=== PATIENT | male | born 1950 | race Caucasian/White ===

== ENCOUNTER → 2020-08-17 09:31 | Outpatient (REF) | payer MEDICARE, SELFPAY ==
--- NOTE | 2020-08-17 09:30 | CA_ITS ---
Transthoracic Echocardiogram Patient (Last, First, Middle): Yomi Duncan, Gender: Male Date of : 1950 Age: 70 Procedure Date: 08/17/2020 Procedure Type: Transthoracic Echocardiogram Location: OP Height: 182.88 cm Weight: 83.92 kg BSA: 2.06 m2 Heart Rate: bpm BP: 120 / 58 mmHg Wheel Loader Operator: Referring MD: Mani Lowe MD Nail Making Machine Tender: Lars Obrien MD Symptoms: I48.0 PAF, I77.810 ASCENDING AORTA DILATION Study Quality: Fair ECG Rhythm: Sinus Conclusions: - 1. Normal LV systolic function with impaired relaxation filling pattern 2. Normal cardiac valvular Doppler 3. Normal RV systolic pressure 4. Mildly dilated aorta at the level of ascending aorta as well as sinus of Valsalva 5. No pericardial effusion Findings Left Ventricle Normal left ventricular size, thickness, and systolic function. The visually estimated ejection fraction is between 60-65%. Spectral Doppler is indicative of an impaired relaxation filling pattern. Right Ventricle Normal right ventricular cavity size and systolic function. Atria Both atria are normal in size. There is lipomatous hypertrophy of the interatrial septum. There is no evidence of interatrial shunt. Aortic Valve Normal aortic valve structure and function. There is no aortic valve stenosis. There is no aortic valve regurgitation. Mitral Valve Normal mitral valve structure and function. There is trace mitral valve regurgitation. There is no mitral valve stenosis. Pulmonic Valve The pulmonic valve is likely normal. There is trace pulmonic valve regurgitation. Tricuspid Valve Normal tricuspid valve structure. The right ventricular systolic pressure is normal. The right ventricular systolic pressure is 19 mmHg. There is no evidence of pulmonary hypertension. Great Vessels The pulmonary artery was not well visualized. There is mild dilatation of the sinuses of Valsalva measuring 4.10 cm and mild dilatation of the ascending aorta measuring 3.80 cm. Venous The inferior vena cava is normal in size and collapses greater than 50% with inspiration. Pericardium/Pleural There is no evidence of pericardial effusion. Measurements 2D Linear Measurements IVSd: 0.83 0.6-0.9/0.6-1.0 cm LVIDd: 5.33 3.9-5.3/4.2-5.9 cm LVIDd Index: 2.59 2.4-3.2/2.2-3.1 cm/m2 LVIDs: 3.58 2.0-3.6 cm LVPWd: 1.20 0.7-1.1 cm Ao Root: 3.40 2.1-3.5 cm LA Diam: 3.50 2.7-3.8/3.0-4.0 cm LAIDs Index: 1.70 1.5-2.3 cm/m2 LV Mass: 257.16 67-162/88-224 g LV Mass Index: 124.83 43-95/49-115 g/m2 LVOT Diam: 2.30 3.0+(-)1.3 cm 2D Systolic Function EF 4C: 73.70 >55% Mitral Valve MV Pk E: 0.68 MV PK A: 0.38 MV Decel Time: 187.00 E/A: 1.80 E'Lateral: 7.93 E'Medial: 5.71 E/E' Med: 11.90 E/E' Lat: 8.60 PHT: 55.00 MVA PHT: 4.00 Decel Gunn[place]: 3.64 Aortic Valve AoV Pk Camilo: 1.19 AoV Pk Grad: 6.00 LVOT LVOT Pk Camilo: 1.07 LVOT Mn Camilo: 0.68 LVOT VTI: 0.27 LVOT Pk Grad: 5.00 LVOT Mn Grad: 2.00 LVOT Diam: 2.30 LVOT Area: 4.15 Diastolic Function MV Pk E: 0.68 MV Pk A: 0.38 E/A: 1.80 E'Medial: 5.71 E/E' Med: 11.90 E' Laterial: 7.93 E/E' Lat: 8.60 Tricuspid Valve TR Pk Camilo: 1.97 TR Pk Grad: 16.00 RA Press: 3.00 RVSP: 19.00 Great Vessels Aorta Ao Root-2D: 3.40 2.0-3.7 cm Sinus of Valsalva: 4.10 2.0-3.5 cm Ao Asc: 3.80 2.1-3.4 cm Ao Arch: 3.80 Updated in Other Vendor System with Status of Final Lars Obrien MD electronically signed on 08/18/2020 12:46:36 PM with status of Final
== END ==
LOC: HO.CARD 09:31
PROVIDERS: Visit Provider Internal Medicine
DX: I48.0 Paroxysmal atrial fibrillation (principal)
CPT/HCPCS: 93306

== ENCOUNTER → 2020-08-29 10:33 | Outpatient (BNVA) | payer MEDICARE, SELFPAY | PROVIDERS: PCP Physician Assistant; Visit Provider Internal Medicine | DX: I48.0 Paroxysmal atrial fibrillation (principal); R00.1 Bradycardia, unspecified; I25.10 Atherosclerotic heart disease of native coronary artery without angina pectoris; Z79.01 Long term (current) use of anticoagulants; Z79.899 Other long term (current) drug therapy | CPT/HCPCS: 93005; 99212 ==

== ENCOUNTER → 2020-09-19 13:51 | Outpatient (REF) | payer MEDICARE, SELFPAY ==
--- NOTE | 2020-09-19 13:55 | ECG_ITS ---
Hook-up date: 2020-09-19 14:05:00 Duration: 25:23:00 Test Indications: PAF Medications: 86648 QRS complexes 11 Ventricular ectopics which represent <1 % of total QRS comp. 15 Supraventricular ectopics which represent <1 % of total QRS comp. * Paced QRS complexs which represent % of total QRS comp. VENTRICULAR ECTOPY 11 Isolated 0 Bigeminal Cycles 0 Couplets 0 Runs 0 Beats in Runs * Beats LONGEST at * BPM at :: -- * Beats FASTEST at * BPM at :: -- SUPRAVENTRICULAR ECTOPY 15 Isolated 0 Couplets 0 Runs 0 Beats in Runs * Beats LONGEST at * BPM at :: -- * Beats FASTEST at * BPM at :: -- HEART RATES 36 MIN at 06:33:43 2020-09-20 50 AVG 87 MAX at 12:24:17 2020-09-20 LONGEST RR 1.8000 secs at 06:26:17 2020-09-20 S-T LEVELS Channel 1 - 128 mm at 14:05:00 2020-09-19 - 128 mm at 14:05:00 2020-09-19 Channel 2 - 128 mm at 14:05:00 2020-09-19 - 128 mm at 14:05:00 2020-09-19 Channel 3 - 128 mm at 03:32:41 -- - 128 mm at 03:32:41 Basic rhythm Normal sinus rhythm No long pauses Frequent Sinus bradycardia , average HR of 50 bpm, with 86% of time HR < 60 bpm Rare ectopics No sustained Atrial fibrillation Patient did not report any symptoms in the diary Referred By: Mani Lowe Overread By: JAVED RUSSELL MD
== END ==
LOC: HO.CARD 13:51
PROVIDERS: Visit Provider Internal Medicine
DX: I48.0 Paroxysmal atrial fibrillation (principal); I77.810 Thoracic aortic ectasia
CPT/HCPCS: 93225; 93226

== ENCOUNTER → 2020-10-08 10:02 | Outpatient (BNVA) | payer MEDICARE, SELFPAY | PROVIDERS: PCP Physician Assistant; Visit Provider Internal Medicine | DX: Z13.89 Encounter for screening for other disorder (principal) | CPT/HCPCS: Q3014 ==

== ENCOUNTER 2021-02-21 07:09 | Outpatient (REF) | payer MEDICARE, SELFPAY ==
[2021-02-21 11:30] LABS: MANUAL DIFF FLAG NO
[2021-02-21 11:47] LABS: Basophils Absolute Auto 0.1 X10*3/uL (0.0-0.2); Basophils Percent Auto 1.1 % (0-2); Eosinophils Absolute Auto 0.2 X10*3/uL (0.0-0.4); Eosinophils Percent Auto 3.9 % (0-4); Hemoglobin 14.9 g/dl (14.0-18.0); Imm Gran Abs Auto 0.01 X10*3/uL (0.00-0.03); Imm Gran Pct Auto 0.2 % (0.0-0.4); Lymphocytes Absolute Auto 1.4 X10*3/uL (1.2-4.9); Lymphocytes Percent Auto 24.9 % (20-40); Mean Corpuscular HGB Conc 33.9 g/dl (31.0-36.0); Mean Corpuscular Hemoglobin 32.3 pg (27.0-33.0); Mean Corpuscular Volume 95.2 fL (80-98); Mean Platelet Volume 10.5 fL (9.4-12.4); Monocytes Absolute Auto 0.5 X10*3/uL (0.1-1.2); Monocytes Percent Auto 8.2 % (2-11); Neutrophils Absolute Auto 3.5 X10*3/uL (2.0-8.3); Neutrophils Percent Auto 61.7 % (45-73); Platelet Count 267 X10*3/uL (160-400); Red Blood Count 4.62 X10*6/uL (4.60-5.80); White Blood Count 5.6 X10*3/uL (4.8-10.8)
[2021-02-21 12:02] LABS: Alanine Aminotransferase 29 U/L (0-40); Albumin Level 4.4 g/dL (3.5-5.0); Alkaline Phosphatase 73 U/L (39-117); Anion Gap 13 (12-20); Aspartate Amino Transferase 31 U/L (5-37); Bilirubin Total 1.1 mg/dL (0.0-1.0); Blood Urea Nitrogen 14 mg/dL (9-16); Calcium 9.5 mg/dL (8.4-10.2); Carbon Dioxide 27 mmol/L (22-29); Chloride 107 mmol/L (96-108); Cholesterol 163 mg/dL; Estimated Glomerular Filt Rate > 60; Glucose Fasting 86 mg/dL (60-99); HDL Cholesterol 55 mg/dL; LDL Cholesterol Calculated 83 mg/dl; Potassium 4.2 mmol/L (3.3-5.1); Sodium 143 mmol/L (135-145); Total Protein 7.1 g/dL (6.5-8.0); Triglycerides 125 mg/dL
[2021-02-21 12:14] LABS: Prostate Specific Antigen Scr 1.16 ng/mL (<0.05-4.0); TSH reflex Free T4 2.43 uIU/mL (0.32-4.0)
== END 2021-02-21 07:10 | disposition home or self-care (01) ==
LOC: HO.HMGCLDS 07:09
PROVIDERS: PCP Physician Assistant; Visit Provider Physician Assistant
DX: Z12.5 Encounter for screening for malignant neoplasm of prostate (principal); I25.10 Atherosclerotic heart disease of native coronary artery without angina pectoris; K76.0 Fatty (change of) liver, not elsewhere classified; I48.0 Paroxysmal atrial fibrillation
CPT/HCPCS: 36415; 80053; 80061; 84153; 84443; 85025

== ENCOUNTER 2021-06-17 13:19 | Outpatient (REF) | payer MEDICARE, SELFPAY ==
[2021-06-17 14:27] LABS: Hematocrit 43.3 % (42-52); Hemoglobin 14.9 g/dl (14.0-18.0); Mean Corpuscular HGB Conc 34.4 g/dl (31.0-36.0); Mean Corpuscular Volume 93.1 fL (80-98); Mean Platelet Volume 10.2 fL (9.4-12.4); Platelet Count 240 X10*3/uL (160-400); Red Blood Count 4.65 X10*6/uL (4.60-5.80); Red Cell Distribution Width 12.4 % (11.0-16.0); White Blood Count 8.1 X10*3/uL (4.8-10.8)
[2021-06-17 14:48] LABS: Alanine Aminotransferase 27 U/L (0-40); Alkaline Phosphatase 89 U/L (39-117); Anion Gap 15 (12-20); Aspartate Amino Transferase 24 U/L (5-37); Bilirubin Direct 0.7 mg/dL (0.0-0.5); Bilirubin Total 1.8 mg/dL (0.0-1.0); Blood Urea Nitrogen 12 mg/dL (9-16); Calcium 9.3 mg/dL (8.4-10.2); Carbon Dioxide 25 mmol/L (22-29); Chloride 102 mmol/L (96-108); Estimated Glomerular Filt Rate > 60; Glucose Random 144 mg/dL (60-115); Potassium 4.3 mmol/L (3.3-5.1); Sodium 138 mmol/L (135-145); Total Protein 6.8 g/dL (6.5-8.0)
[2021-06-18 09:52] LABS: Lyme Abs Screen <0.90 index
[2021-06-22 17:22] LABS: HSV 1 IgM IFA Negative (Negative); HSV 2 IgM IFA Negative (Negative)
== END 2021-06-17 13:20 | disposition home or self-care (01) ==
LOC: HO.HMGCLDS 13:19
PROVIDERS: PCP Physician Assistant; Visit Provider Physician Assistant
DX: Z01.84 Encounter for antibody response examination (principal); I10 Essential (primary) hypertension; L73.9 Follicular disorder, unspecified
CPT/HCPCS: 36415; 80048; 80076; 85027; 86617; 86618; 86695; 86696

== ENCOUNTER 2021-06-19 14:41 | Outpatient (REF) | payer MEDICARE, SELFPAY | END 2021-06-19 14:42 | disposition home or self-care (01) | LOC: HO.HMGCLDS 14:41 | PROVIDERS: PCP Physician Assistant; Visit Provider Physician Assistant | DX: B37.9 Candidiasis, unspecified (principal) | CPT/HCPCS: 87040 ==

== ENCOUNTER 2021-06-20 08:03 | Outpatient (REF) | payer MEDICARE, SELFPAY ==
[2021-06-20 11:32] LABS: Hematocrit 41.1 % (42-52); Mean Corpuscular HGB Conc 34.1 g/dl (31.0-36.0); Mean Corpuscular Hemoglobin 32.3 pg (27.0-33.0); Mean Corpuscular Volume 94.9 fL (80-98); Mean Platelet Volume 10.2 fL (9.4-12.4); Platelet Count 346 X10*3/uL (160-400); Red Blood Count 4.33 X10*6/uL (4.60-5.80); Red Cell Distribution Width 12.1 % (11.0-16.0); White Blood Count 11.9 X10*3/uL (4.8-10.8)
[2021-06-20 11:54] LABS: Alanine Aminotransferase 36 U/L (0-40); Alkaline Phosphatase 77 U/L (39-117); Anion Gap 12 (12-20); Aspartate Amino Transferase 22 U/L (5-37); Bilirubin Total 0.8 mg/dL (0.0-1.0); Blood Urea Nitrogen 15 mg/dL (9-16); Calcium 9.6 mg/dL (8.4-10.2); Carbon Dioxide 27 mmol/L (22-29); Chloride 106 mmol/L (96-108); Cholesterol 126 mg/dL; Estimated Glomerular Filt Rate > 60; Glucose Fasting 89 mg/dL (60-99); HDL Cholesterol 42 mg/dL; LDL Cholesterol Calculated 62 mg/dl; Sodium 141 mmol/L (135-145); Total Protein 6.6 g/dL (6.5-8.0); Triglycerides 112 mg/dL
[2021-06-20 12:05] LABS: TSH reflex Free T4 3.41 uIU/mL (0.32-4.0)
== END 2021-06-20 08:04 | disposition home or self-care (01) ==
LOC: HO.HMGCLDS 08:03
PROVIDERS: PCP Physician Assistant; Visit Provider Physician Assistant
DX: I25.10 Atherosclerotic heart disease of native coronary artery without angina pectoris (principal); I48.0 Paroxysmal atrial fibrillation; I10 Essential (primary) hypertension
CPT/HCPCS: 36415; 80053; 80061; 84443; 85027

== ENCOUNTER 2021-07-02 08:24 | Outpatient (REF) | payer MEDICARE, SELFPAY ==
[2021-07-02 11:39] LABS: Hematocrit 39.3 % (42-52); Hemoglobin 13.3 g/dl (14.0-18.0); Mean Corpuscular HGB Conc 33.8 g/dl (31.0-36.0); Mean Corpuscular Volume 94.5 fL (80-98); Mean Platelet Volume 9.4 fL (9.4-12.4); Platelet Count 428 X10*3/uL (160-400); Red Blood Count 4.16 X10*6/uL (4.60-5.80); White Blood Count 8.3 X10*3/uL (4.8-10.8)
[2021-07-02 11:57] LABS: Estimated Average Glucose 103 mg/dL; Hemoglobin A1c % 5.2 %
[2021-07-02 12:00] LABS: Alanine Aminotransferase 25 U/L (0-40); Albumin Level 3.8 g/dL (3.5-5.0); Alkaline Phosphatase 74 U/L (39-117); Anion Gap 13 (12-20); Aspartate Amino Transferase 27 U/L (5-37); Bilirubin Total 0.5 mg/dL (0.0-1.0); Blood Urea Nitrogen 11 mg/dL (9-16); C Reactive Protein 0.73 mg/dL (< or = 0.50); Calcium 9.3 mg/dL (8.4-10.2); Carbon Dioxide 25 mmol/L (22-29); Chloride 110 mmol/L (96-108); Cholesterol 144 mg/dL; Estimated Glomerular Filt Rate > 60; Glucose Fasting 95 mg/dL (60-99); HDL Cholesterol 44 mg/dL; LDL Cholesterol Calculated 84 mg/dl; Potassium 4.9 mmol/L (3.3-5.1); Rheumatoid Factor < 15.0 IU/mL (<15.0); Sodium 143 mmol/L (135-145); Total Protein 6.4 g/dL (6.5-8.0); Triglycerides 80 mg/dL
[2021-07-02 12:22] LABS: Prostate Specific Antigen Scr 1.79 ng/mL (<0.05-4.0); TSH reflex Free T4 1.63 uIU/mL (0.32-4.0)
[2021-07-02 12:43] LABS: Erythrocyte Sedimentation Rate 23 MM/HR (0-15)
[2021-07-06 12:11] LABS: Anti Nuclear Antibody Screen NEGATIVE (NEGATIVE)
== END 2021-07-02 08:25 | disposition home or self-care (01) ==
LOC: HO.HMGCLDS 08:24
PROVIDERS: PCP Physician Assistant; Visit Provider Physician Assistant
DX: M13.0 Polyarthritis, unspecified (principal); I10 Essential (primary) hypertension; D72.829 Elevated white blood cell count, unspecified; I48.0 Paroxysmal atrial fibrillation; I25.10 Atherosclerotic heart disease of native coronary artery without angina pectoris; Z12.5 Encounter for screening for malignant neoplasm of prostate
CPT/HCPCS: 36415; 80053; 80061; 83036; 84153; 84443; 85027; 85652; 86038; 86039; 86140; 86431

== ENCOUNTER → 2021-08-12 08:29 | Outpatient (REF) | payer MEDICARE, SELFPAY ==
--- NOTE | 2021-08-12 08:32 | CA_ITS ---
Transthoracic Echocardiogram Patient (Last, First, Middle): Yomi Duncan, Gender: Male Date of : 1950 Age: 71 Procedure Date: 08/12/2021 Procedure Type: Transthoracic Echocardiogram Location: OP Height: 182.88 cm Weight: 88.45 kg BSA: 2.11 m2 Heart Rate: bpm BP: 118 / 60 mmHg Baggage Handler: Referring MD: Dexter Patricia PA-C Symptoms: I48.0 - Paroxysmal atrial fibrillation Study Quality: Fair ECG Rhythm: Sinus Conclusions: - The left ventricular systolic function is normal. The calculated ejection fraction is 58% by biplane method. - No obvious valvular pathology seen on this study. - There is mild aortic annular dilatation measuring 4.00 cm. Findings Left Ventricle Normal left ventricular cavity size. There is mildly increased left ventricular wall thickness. The left ventricular systolic function is normal. The calculated ejection fraction is 58% by biplane method. There is no evidence of regional wall motion abnormalities. Diastolic function is normal for age. Right Ventricle Normal right ventricular cavity size and systolic function. Atria Both atria are normal in size. Aortic Valve The aortic valve was not well visualized. There is no aortic valve stenosis. There is no aortic valve regurgitation. Mitral Valve The mitral valve appears normal. There is trace mitral valve regurgitation. There is no mitral valve stenosis. Pulmonic Valve The pulmonic valve was not well visualized. Tricuspid Valve Normal tricuspid valve structure. There is trace tricuspid valve regurgitation. The pulmonary artery systolic pressure is normal. Great Vessels There is mild aortic annular dilatation measuring 4.00 cm. Top normal ascending aortic size at 3.9cm. Venous The inferior vena cava is normal in size and collapses greater than 50% with inspiration. Pericardium/Pleural There is no evidence of pericardial effusion. Prior Study Comparison No significant change compared to prior study dated: 08/17/2020. Recommendations, Care & Conclusions No obvious valvular pathology seen on this study. Measurements 2D Linear Measurements IVSd: 1.43 0.6-0.9/0.6-1.0 cm LVIDd: 4.27 3.9-5.3/4.2-5.9 cm LVIDd Index: 2.02 2.4-3.2/2.2-3.1 cm/m2 LVIDs: 2.67 2.0-3.6 cm LVPWd: 1.41 0.7-1.1 cm Ao Root: 4.00 2.1-3.5 cm LA Diam: 3.40 2.7-3.8/3.0-4.0 cm LAIDs Index: 1.61 1.5-2.3 cm/m2 LV Mass: 292.83 67-162/88-224 g LV Mass Index: 138.78 43-95/49-115 g/m2 LVOT Diam: 2.30 3.0+(-)1.3 cm 2D Systolic Function EF 4C: 58.90 >55% EF 2C: 56.00 >55% EF BiP: 58.30 >55% Mitral Valve MV Pk E: 0.69 MV PK A: 0.50 MV Decel Time: 248.00 E/A: 1.40 E'Lateral: 10.10 E'Medial: 5.55 E/E' Med: 12.50 E/E' Lat: 6.90 PHT: 73.00 MVA PHT: 3.01 Decel Giles: 2.80 Aortic Valve AoV Pk Camilo: 1.38 AoV Mn Camilo: 0.95 AoV VTI: 0.34 AoV Pk Grad: 8.00 Aov Mn Grad: 4.00 HOLDEN Cont.VTI: 3.29 LVOT LVOT Pk Camilo: 1.12 LVOT Mn Camilo: 0.72 LVOT VTI: 0.27 LVOT Pk Grad: 5.00 LVOT Mn Grad: 3.00 LVOT Diam: 2.30 LVOT Area: 4.15 Diastolic Function MV Pk E: 0.69 MV Pk A: 0.50 E/A: 1.40 E'Medial: 5.55 E/E' Med: 12.50 E' Laterial: 10.10 E/E' Lat: 6.90 Right Ventricle TAPSE (mm): 25.00 Tricuspid Valve TR Pk Camilo: 1.58 TR Pk Grad: 10.00 Great Vessels Aorta Ao Root-2D: 4.00 2.0-3.7 cm Ao Annulus: 4.00 1.4-2.6 cm Ao Asc: 3.90 2.1-3.4 cm Pulmonary Valve PV Pk Camilo: 0.99 Peak PV Grad: 4.00 Updated in Other Vendor System with Status of Final Mani Lowe MD electronically signed on 08/12/2021 12:26:04 PM with status of Final
== END ==
LOC: HO.CARD 08:29
PROVIDERS: Visit Provider Physician Assistant
DX: I48.0 Paroxysmal atrial fibrillation (principal); B37.9 Candidiasis, unspecified
CPT/HCPCS: 93306

== ENCOUNTER 2021-08-30 08:26 | Outpatient (REF) | payer MEDICARE, SELFPAY ==
[2021-08-30 11:28] LABS: Hematocrit 42.6 % (42.0-52.0); Hemoglobin 14.5 g/dl (14.0-18.0); Mean Corpuscular Hemoglobin 31.7 pg (27.0-33.0); Mean Corpuscular Volume 93.2 fL (80.0-98.0); Mean Platelet Volume 10.5 fL (9.4-12.4); Platelet Count 281 X10*3/uL (160-400); Red Blood Count 4.57 X10*6/uL (4.60-5.80); White Blood Count 5.2 X10*3/uL (4.8-10.8)
== END 2021-08-30 08:27 | disposition home or self-care (01) ==
LOC: HO.HMGCLDS 08:26
PROVIDERS: PCP Physician Assistant; Visit Provider Physician Assistant
DX: Z13.89 Encounter for screening for other disorder (principal)
CPT/HCPCS: 36415; 85027

== ENCOUNTER → 2021-10-22 09:38 | Outpatient (BNVA) | payer MEDICARE, SELFPAY | PROVIDERS: PCP Physician Assistant; Referring Provider Physician Assistant; Visit Provider Internal Medicine | DX: I48.0 Paroxysmal atrial fibrillation (principal); I25.10 Atherosclerotic heart disease of native coronary artery without angina pectoris; I77.810 Thoracic aortic ectasia; R00.1 Bradycardia, unspecified | CPT/HCPCS: 93005; 99212 ==

== ENCOUNTER 2022-02-28 09:04 | Outpatient (REF) | payer MEDICARE, SELFPAY ==
[2022-02-28 11:24] LABS: Hemoglobin 15.2 g/dl (14.0-18.0); Mean Corpuscular HGB Conc 34.5 g/dl (31.0-36.0); Mean Corpuscular Hemoglobin 32.5 pg (27.0-33.0); Mean Corpuscular Volume 94.2 fL (80.0-98.0); Mean Platelet Volume 10.5 fL (9.4-12.4); Platelet Count 282 X10*3/uL (160-400); Red Blood Count 4.67 X10*6/uL (4.60-5.80); Red Cell Distribution Width 12.2 % (11.0-16.0); White Blood Count 5.8 X10*3/uL (4.8-10.8)
[2022-02-28 11:49] LABS: Alanine Aminotransferase 44 U/L (0-40); Albumin Level 4.3 g/dL (3.5-5.0); Alkaline Phosphatase 68 U/L (39-117); Anion Gap 15 (12-20); Aspartate Amino Transferase 43 U/L (5-37); Bilirubin Total 1.1 mg/dL (0.0-1.0); Blood Urea Nitrogen 12 mg/dL (9-16); Calcium 9.4 mg/dL (8.4-10.2); Carbon Dioxide 24 mmol/L (22-29); Chloride 107 mmol/L (96-108); Cholesterol 159 mg/dL; Estimated Glomerular Filt Rate > 60; Glucose Fasting 91 mg/dL (60-99); HDL Cholesterol 55 mg/dL; LDL Cholesterol Calculated 86 mg/dl; Potassium 4.5 mmol/L (3.3-5.1); Sodium 141 mmol/L (135-145); Total Protein 7.2 g/dL (6.5-8.0); Triglycerides 92 mg/dL
[2022-02-28 11:50] LABS: Prostate Specific Antigen Scr 1.64 ng/mL (<0.05-4.0); TSH reflex Free T4 2.56 uIU/mL (0.32-4.0)
[2022-02-28 12:01] LABS: Creatinine Urine 228.09 mg/dL; Microalbum/Creatinine Ratio Ur 5.6 ug/mg cr
== END 2022-02-28 09:05 | disposition home or self-care (01) ==
LOC: HO.HMGCLDS 09:04
PROVIDERS: PCP Physician Assistant; Visit Provider Physician Assistant
DX: I10 Essential (primary) hypertension (principal); E78.2 Mixed hyperlipidemia; Z12.5 Encounter for screening for malignant neoplasm of prostate
CPT/HCPCS: 36415; 80053; 80061; 82043; 84153; 84443; 85027

== ENCOUNTER → 2022-09-17 09:24 | Outpatient (BNVA) | payer MEDICARE, SELFPAY | PROVIDERS: PCP Physician Assistant; Visit Provider Surgery | DX: R10.32 Left lower quadrant pain (principal); R00.1 Bradycardia, unspecified; I48.0 Paroxysmal atrial fibrillation; K76.0 Fatty (change of) liver, not elsewhere classified; I10 Essential (primary) hypertension; E78.2 Mixed hyperlipidemia; R13.12 Dysphagia, oropharyngeal phase; Z79.01 Long term (current) use of anticoagulants | CPT/HCPCS: 99202 ==

== ENCOUNTER 2022-09-25 09:53 | Outpatient (REF) | payer MEDICARE, SELFPAY ==
--- NOTE | ~2022-09-25 | CT_ITS ---
EXAMINATION: CT PELVIS WITHOUT CONTRAST CLINICAL INFORMATION: Left lower quadrant pain COMPARISON: None TECHNIQUE: Helical scanning was performed with submillimeter collimation through the pelvis. Sagittal and coronal multiplanar 2-D reconstructions were obtained. This CT examination was performed using dose optimization techniques as appropriate, variously including the following: *Automated exposure control *Adjustment of mA and/or kV according to patient size (this includes techniques or standardized protocols for targeted exams where dose is matched to indication/reason for exam; i.e. extremities or head) *Use of iterative reconstruction technique DLP: 988 mGy-cm FINDINGS: PELVIS: There is scattered colonic diverticuli, stool without distention. Visualized small bowel loops are normal caliber. No abnormal size pelvic mass or lymph nodes seen. The prostate gland is mildly enlarged. There are bilateral prominent inguinal canals containing partial loop of descending colon in left inguinal canal and peritoneal fat within the right inguinal canal is noted. OSSEOUS STRUCTURES: No aggressive lytic or sclerotic process seen. There is mild spondylosis lower lumbar spine with bilateral L4-L5 and L5-S1 facet joint arthropathy. CT/CT pelvis wo IV con IMPRESSION: Left inguinal hernia with a loop of descending colon within but no obstructive symptoms or inflammatory process seen. Colonic diverticulosis without diverticulitis.
== END 2022-09-25 09:54 | disposition home or self-care (01) ==
LOC: HO.CT 09:53
PROVIDERS: PCP Physician Assistant; Visit Provider Surgery
DX: R10.32 Left lower quadrant pain (principal)
CPT/HCPCS: 72192

== ENCOUNTER → 2022-10-03 11:22 | Outpatient (BNVA) | payer MEDICARE, SELFPAY | PROVIDERS: PCP Physician Assistant; Visit Provider Surgery | DX: K40.90 Unilateral inguinal hernia, without obstruction or gangrene, not specified as recurrent (principal); R13.12 Dysphagia, oropharyngeal phase; R00.1 Bradycardia, unspecified; E78.2 Mixed hyperlipidemia; I10 Essential (primary) hypertension; I48.0 Paroxysmal atrial fibrillation; Z79.01 Long term (current) use of anticoagulants | CPT/HCPCS: 99212 ==

== ENCOUNTER → 2022-10-28 09:22 | Outpatient (BNVA) | payer MEDICARE, SELFPAY | PROVIDERS: PCP Physician Assistant; Referring Provider Physician Assistant; Visit Provider Internal Medicine | DX: Z01.810 Encounter for preprocedural cardiovascular examination (principal); I48.0 Paroxysmal atrial fibrillation; R00.1 Bradycardia, unspecified; I25.10 Atherosclerotic heart disease of native coronary artery without angina pectoris; I77.810 Thoracic aortic ectasia; Z79.01 Long term (current) use of anticoagulants; Z79.899 Other long term (current) drug therapy | CPT/HCPCS: 93005; 99212 ==

== ENCOUNTER 2022-10-29 08:53 | Outpatient (REF) | payer MEDICARE, SELFPAY ==
--- NOTE | ~2022-10-29 | FL_ITS ---
EXAMINATION: FL BARIUM SWALLOW CLINICAL INFORMATION: R13.12 - Dysphagia, oropharyngeal phase. Patient notes prior history spontaneous pharyngeal spasms in past with some intermittent pain. COMPARISON: Chest radiographs 11/03/2018 TECHNIQUE: Barium swallow examination is performed using fluoroscopic evaluation in addition to multiple fluoroscopic spot views, including cine images during swallowing. The patient is imaged both upright and prone and using both thick and thin sulfate along with effervescent granules. Barium pill challenge also performed. Fluoroscopy time: 1.5 minutes DAP: 16.626 Gycm2 Images: 32 FINDINGS: Swallowing function is normal and there is no aspiration. The cervical esophagus has no web or diverticulum or stricture. The cervical thoracic junction appears normal. There are degenerative disc changes cervical spine at C5-C6 with disc narrowing and anterior spurring. No delayed transit through the area of osteophyte. There is prompt passage of swallowed barium pill from mouth to stomach. The thoracic esophagus shows some decreased primary peristaltic activity but no tertiary contractions. No obstruction, stricture, or ulceration. There is borderline small sliding hiatal hernia/herniation of esophagogastric junction during the prone Valsalva maneuver. No gastroesophageal reflux demonstrated. Brief fluoroscopy of the upper abdomen shows no gastric outlet obstruction. FL/FL barium swallow IMPRESSION: -Mild decreased primary esophageal peristalsis. No tertiary contractions. -No obstruction, stricture, or ulceration. -Borderline herniation esophagogastric junction during prone Valsalva maneuver. No gastroesophageal reflux. -Degenerative changes mid cervical spine with bridging anterior osteophyte.
== END 2022-10-29 08:54 | disposition home or self-care (01) ==
LOC: HO.XRAY 08:53
PROVIDERS: PCP Physician Assistant; Visit Provider Physician Assistant
DX: Z01.810 Encounter for preprocedural cardiovascular examination (principal); R13.12 Dysphagia, oropharyngeal phase
CPT/HCPCS: 74220; 93306

== ENCOUNTER → 2022-10-29 10:17 | Outpatient (REF) | payer MEDICARE, SELFPAY ==
--- NOTE | 2022-10-29 10:20 | CA_ITS ---
Transthoracic Echocardiogram Patient (Last, First, Middle): Yomi Duncan, Gender: Male Date of : 1950 Age: 72 Procedure Date: 10/29/2022 Procedure Type: Transthoracic Echocardiogram Location: OP Height: 185.42 cm Weight: 90.72 kg BSA: 2.15 m2 Heart Rate: 45 bpm BP: 135 / 75 mmHg Quality Assistant: ALVAREZ Hernandez MD: Mani Lowe MD Electronic Warfare Officer: Lars Obrien MD Symptoms: Z01.810 - Encounter for preprocedural cardiovascular examination Study Quality: Fair ECG Rhythm: Bradycardia Conclusions: - 1. Normal LV systolic function with mild LVH with LVEF of 60 65% with impaired relaxation filling pattern 2. Cardiac valvular Doppler within normal limits 3. Mildly dilated ascending aorta at 4.2 cm 4. No gross pericardial effusion Findings Left Ventricle Normal left ventricular size and systolic function. There is mildly increased left ventricular wall thickness. The visually estimated ejection fraction is between 60-65%. Regional wall motion abnormalities can not be excluded due to suboptimal endocardial definition. Spectral Doppler is indicative of an impaired relaxation filling pattern. E/E prime ratio is between 8 and 15 consistent with indeterminate filling pressures. There is moderate septal asymmetric hypertrophy. Right Ventricle Normal right ventricular cavity size and systolic function. Atria The left atrium is normal in size. There is lipomatous hypertrophy of the interatrial septum. There is no evidence of interatrial shunt. The right atrium was not well visualized. Aortic Valve The aortic valve was not well visualized. There is no aortic valve stenosis. There is no aortic valve regurgitation. Mitral Valve There is mild anterior and posterior mitral leaflet thickening. There is trace mitral valve regurgitation. There is no mitral valve stenosis. Pulmonic Valve The pulmonic valve was not well visualized. Tricuspid Valve The tricuspid valve was not well visualized. Tricuspid regurgitation envelope is inadequate for calculation of right ventricular systolic pressure. Great Vessels The pulmonary artery was not well visualized. There is mild dilatation of the ascending aorta measuring 4.20 cm. Venous The inferior vena cava was not well visualized. Pericardium/Pleural There is no evidence of pericardial effusion. Prior Study Comparison No significant change compared to prior study dated: 08/12/2021. Measurements 2D Linear Measurements IVSd: 1.62 0.6-0.9/0.6-1.0 cm LVIDd: 4.40 3.9-5.3/4.2-5.9 cm LVIDd Index: 2.05 2.4-3.2/2.2-3.1 cm/m2 LVIDs: 2.97 2.0-3.6 cm LVPWd: 1.36 0.7-1.1 cm LA Diam: 3.10 2.7-3.8/3.0-4.0 cm LAIDs Index: 1.44 1.5-2.3 cm/m2 LV Mass: 329.43 67-162/88-224 g LV Mass Index: 153.23 43-95/49-115 g/m2 LVOT Diam: 2.10 3.0+(-)1.3 cm 2D Systolic Function EF 4C: 58.90 >55% EF 2C: 73.00 >55% Mitral Valve MV Pk E: 0.51 MV PK A: 0.61 MV Decel Time: 220.00 E/A: 0.80 E'Lateral: 7.40 E'Medial: 4.03 E/E' Med: 12.70 E/E' Lat: 6.90 PHT: 64.00 MVA PHT: 3.44 Decel Leslie: 2.32 Aortic Valve AoV Pk Camilo: 1.08 AoV Mn Camilo: 0.70 AoV VTI: 0.24 AoV Pk Grad: 5.00 Aov Mn Grad: 2.00 HOLDEN Cont.VTI: 2.88 LVOT LVOT Pk Camilo: 1.00 LVOT Mn Camilo: 0.60 LVOT VTI: 0.20 LVOT Pk Grad: 4.00 LVOT Mn Grad: 2.00 LVOT Diam: 2.10 LVOT Area: 3.46 Diastolic Function MV Pk E: 0.51 MV Pk A: 0.61 E/A: 0.80 E'Medial: 4.03 E/E' Med: 12.70 E' Laterial: 7.40 E/E' Lat: 6.90 Right Ventricle TAPSE (mm): 22.90 TVS' Camilo: 8.49 Tricuspid Valve RA Press: 3.00 Great Vessels Aorta Sinus of Valsalva: 4.20 2.0-3.5 cm Ao Asc: 4.20 2.1-3.4 cm Pulmonary Valve PV Pk Camilo: 0.84 Peak PV Grad: 3.00 Updated in Other Vendor System with Status of Final Lars Obrien MD electronically signed on 10/29/2022 3:05:49 PM with status of Final
== END ==
LOC: HO.CARD 10:17
PROVIDERS: Visit Provider Internal Medicine
DX: Z13.89 Encounter for screening for other disorder (principal)
CPT/HCPCS: 93306

== ENCOUNTER → 2022-11-04 07:54 | Outpatient (REF) | payer MEDICARE, SELFPAY ==
--- NOTE | ~2022-11-04 | NM_ITS ---
Lexiscan Myocardial perfusion study Indication: Preoperative cardiac evaluation Technique: The patient was brought in for a Lexiscan perfusion study on 11/04/2022 and was injected 0.4 mg of Lexiscan intravenously. Within a minute of this injection 30 mCi of sestamibi was given intravenously. Images were obtained using the SPECT gamma camera interlaced with the gating device. Images were obtained in supine position. Resting perfusion study was performed on 11/05/2022. Patient was administered 30 mCi of sestamibi intravenously at rest. Images were then obtained in supine position. Images were processed with the software and compared side to side in short axis, horizontal long axis and vertical long axis views. Total DLP 87mGy-cm. Findings: Raw acquisition reviewed. The stress perfusion study showed diminished tracer uptake along the inferior wall, more prominent towards the base and apex. There is also adjacent subdiaphragmatic tracer uptake. There is some improvement with CT attenuation correction and hence could be related to diaphragmatic attenuation artifact. The gated study shows normal LV systolic function with calculated LVEF of 58%. LV cavity is normal in size. The gated study shows normal wall thickening and contraction of segments. Resting study shows diminished tracer uptake along the inferior wall, slightly worse compared to stress acquisition. Gating at rest reveals normal wall motion with ejection fraction at 57%. The findings are consistent with fixed inferior defect. No clear reversible defects. NM/NM chris perf SPECT rest & str Impression: 1. Myocardial perfusion imaging study shows no clear evidence of any ischemia or infarction. Likely normal perfusion. 2. Gated LVEF is 58% during stress and 57% during rest. 3. Transient ischemic dilatation not present. EKG component of the test reported separately.
--- NOTE | 2022-11-04 07:58 | CA_ITS ---
Acquisition Time: 2022-11-04 08:13:44 Total Exercise Time: 00:03:49 Test Indications: Dyspnea Medications: ELIQUIS METOPROLOL LOVASTATIN Protocol: SHADIA Max HR: 111 BPM 75% of Pred: 148 BPM Max BP: 148/072 mmHG Max Work Load: 5.5 METS Exercise stress test with exercise 3 min 49 sec of Shadia protocol, achieving 75% MPHR briefly, with report of shortness of breath and tightness around neck with request to stop, with isolated PACs and brierf runs of atrial tachycardia, with normotensive response to exercise, with nondiagnostic EKG for ischemia. Pt assisted to sitting position and when symptoms resolved, testing changed to a pharmacological nuclear stress test with Lexiscan, with recurrent shortness of breath and neck tightness, without arrythmia, with normotensive response to injection, with nondiagnostic EKG for ischemia. In recovery he was treated with Aminophylline 75mg IVP to reverse Lexiscan with resolution of symptoms. Nuclear images pending. Test reviewed with Dr Obrien Referred By: Mani Lowe Overread By: NAVNEET TOVAR
== END ==
LOC: HO.CARD 07:54
PROVIDERS: Visit Provider Internal Medicine
DX: Z01.810 Encounter for preprocedural cardiovascular examination (principal)
CPT/HCPCS: 78452; 93017; A9500; J0280; J2785

== ENCOUNTER → 2022-11-12 13:20 | Outpatient (BNVA) | payer MEDICARE, SELFPAY | PROVIDERS: PCP Physician Assistant; Visit Provider Surgery | DX: K40.91 Unilateral inguinal hernia, without obstruction or gangrene, recurrent (principal); E78.2 Mixed hyperlipidemia; R00.1 Bradycardia, unspecified; I10 Essential (primary) hypertension; I48.0 Paroxysmal atrial fibrillation; I25.10 Atherosclerotic heart disease of native coronary artery without angina pectoris | CPT/HCPCS: 99212 ==

== ENCOUNTER 2022-11-27 05:53 | Day surgery (SDC) | payer MEDICARE, SELFPAY ==
[2022-11-19 10:33] VITALS: BMI 27.9
[2022-11-27] VITALS (7 sets, daily range): BP systolic 109–143; BP diastolic 44–66; PULSE 46–55; RESP 14–18; TEMP 36.6–36.7; O2SAT 95–98
[2022-11-27] MEDS: Lactated Ringers 1,000 ML 100 ML IVCONT (06:42)
--- NOTE | 2022-11-27 07:21 | MHC.SHP ---
Pre-Procedural Eval Section A Date of Service: 11/27/22 The patient is an INPATIENT: No The History & Physical has been completed within 30 days and I have reviewed it.: Yes Section B Chief Complaint: Unilateral inguinal hernia, without obstruction Allergies: Allergies Allergy/AdvReac Type Severity Reaction Status Date / Time adhesive tape [ADHESIVE TAPE] Allergy Intermediate HIVES Verified 11/12/22 13:30 Penicillins [PENICILLINS] Allergy Unknown UNKNOWN Verified 11/12/22 13:30 REACTION-CHILDHOOD ALLERGY heart monitor electrodes Allergy Intermediate Hives (if Uncoded 11/19/22 10:30 on for extended time frame) Plan I have reviewed the history and physical and performed a pertinent physical examination on my patient. No changes have occurred unless specified. Time Spent With Patient Time: Total time managing care of this patient today ____ minutes.
--- NOTE | 2022-11-27 07:21 | W.PM.OPN ---
Operative Note Operative Note Date of Service: 11/27/22 Narrative: Preop diagnosis: [Recurrent left inguinal hernia] Postop diagnosis: [Same] Procedure: [Open left inguinal hernia repair with mesh] Surgeon: Isak Higgins MD Assist: [] Anesthesia: [general LMA; local Ropovicaine 0.5%] Estimated blood loss: [3cc] Specimen: [none] Intraoperative findings: [Recurrent indirect left inguinal hernia repaired with plug] Indications: [The patient is a 72-year-old gentleman who is anticoagulated on Eliquis because of cardiac problems including atrial fibrillation. He underwent an open left inguinal hernia several years ago and developed a recurrence that was monitored. However, the recurrence has become more symptomatic. It has not incarcerated or strangulated but it is enlarged and he is interested in repair. The option of laparoscopic repair was discussed but given his need for anticoagulation in the bleeding risk and inability to hold pressure and a laparoscopic repair I recommended an open repair. The inherent risks of bleeding, infection, testicular loss, hernia recurrence, bleeding complications that could require another procedure, urinary retention and the possibility that recognized at her unrecognized comorbidities could complicate the procedure were discussed. The patient seemed understand his options and wanted to proceed with an open left inguinal hernia repair for his recurrent hernia. Pain management and activity restrictions were also reviewed and apparently understood.] Procedure: [The patient was identified in the preoperative holding area by myself in the appropriate left groin area marked. He was brought into the operating suite, his inguinal hair had been clipped, he is placed supine on the table after voiding his urinary bladder sequential compression stockings were in place he received Ancef, 2 g IV and tolerated without difficulty. He was induced in general via LMA administered. He was then widely prepped and draped using ChloraPrep and left ileoinguinal nerve block performed then a standard left inguinal repair incision made sharply and carried down. Hemostasis was obtained with electrocautery. The external oblique aponeurosis at . This was dissected superiorly and inferiorly and tagged with hemostats. Due to prior scar tissue, normal anatomy is distorted in the nerves could not clearly be identified. Dissection under the spermatic cord was difficult secondary to prior hernia mesh and there was no evidence of a direct inguinal hernia. The indirect hernia sac identified on CT was apparent that was circumferentially dissected then dissected highly and returned to the peritoneal space. Next, a polypropylene plug was inserted into the canal and it was sutured with 2 0 polypropylene sutures. The area was inspected for hemostasis which was good. The external oblique aponeurosis was closed using a running 0 Polysorb suture, additional local infiltrated and the skin closed with a running 4-0 Monocryl subcuticular suture. There was washed and dried, Mastisol and Steri-Strips applied followed by sterile dressings. Patient tolerated the procedure well and was sent to the recovery in stable condition. All sponge instrument counts were correct x2. The patient's request, I called his Ita at [phone] and apprised her of the operation and postoperative structures. Her questions seemed to be answered.]
--- NOTE | 2022-11-27 07:22 | P.CONAN_ITS ---
HPI - Anesthesia Eval Consult details Narrative: Left IHR PMFSH Active Problems Active Problems: All Active Problems (Updated 11/19/22 @ 09:19 by Ligia Archer RN) Fatty liver disease, nonalcoholic (Acute) Osteoarthritis (Acute) Annual physical exam (Acute) Folliculitis (Acute) Candidiasis (Acute) Leukocytosis (Acute) Polyarthritis (Acute) Medicare annual wellness visit, initial (Acute) HTN (hypertension) (Acute) HLD (hyperlipidemia) (Acute) Eustachian tube dysfunction (Acute) Dysphagia (Acute) Left inguinal hernia (Acute) Bradycardia (Acute) Severe left groin pain (Acute) Anticoagulated (Acute) Preoperative cardiovascular examination (Acute) Recurrent left inguinal hernia (Acute) Atherosclerotic cardiovascular disease (Acute) Sinus bradycardia (Acute) PAF (paroxysmal atrial fibrillation) (Acute) Past Medical History Medical History (Updated 11/19/22 @ 09:19 by Ligia Archer RN) Ascending aorta dilatation Atherosclerotic cardiovascular disease Elevated cholesterol History of cardioversion HTN (hypertension) PAF (paroxysmal atrial fibrillation) Polyarthritis Sinus bradycardia Family History Family History Father CHF (congestive heart failure) Mother Hypertension Osteoarthritis Family history of problems with anesthesia: No Surgical History Surgical History (Updated 11/19/22 @ 09:19 by Ligia Archer RN) History of colonoscopy (02/24/09) History of hemorrhoidectomy (04/05/19) History of left inguinal hernia repair (09/04/11) History of right inguinal hernia repair (03/05/12) History of umbilical hernia repair Hx of cardiac catheterization History of Problems with Anesthesia: No Social History Social History Housing: House Are you a primary health care coordinator to a significant other at home: No Do you presently have visiting nurse or other home services: No Alcohol intake: current Alcohol intake frequency: a few times a week Alcohol type: beer Patient Tobacco Use Status: Never used Tobacco e-Cigarette/Vaping Use: Never Used Second Hand Smoke Exposure: Yes Use of substances other than those prescribed or required for medical reasons: No Have you been hit, kicked, punched, or otherwise hurt by someone within the past year? If so, by whom?: No Are you DNR?: No Advance Directives: No Advance Directives Information Provided: Yes (brochure mailed) Advance Directives on File: No Recently lost weight without trying: No Eating poorly because of decreased appetite: No Nutrition Risks: No Nutritional Risk Poor oral hygiene: No service: Yes Current occupational status: retired Cognitive needs: Yes Hearing needs: No Vision needs: No Meds Allergies Allergy/AdvReac Type Severity Reaction Status Date / Time adhesive tape [ADHESIVE TAPE] Allergy Intermediate HIVES Verified 11/12/22 13:30 Penicillins [PENICILLINS] Allergy Unknown UNKNOWN Verified 11/12/22 13:30 REACTION-CHILDHOOD ALLERGY heart monitor electrodes Allergy Intermediate Hives (if Uncoded 11/19/22 10:30 on for extended time frame) Active Medications: Current Medications Lactated Ringer's (Lr) 1,000 mls @ 100 mls/hr IVCONT .Q10H TED Last Admin: 11/27/22 06:42 Dose: 100 mls/hr Exam Exam Date and Time: November 27, 2022 0722 Height,Weight and Vital Signs: Height 6 ft Weight 93.44 kg Last Vital Signs Temp 98.0 F 11/27/22 06:41 Pulse 47 L 11/27/22 06:41 Resp 16 11/27/22 06:41 BP 143/66 H 11/27/22 06:41 Pulse Ox 98 11/27/22 06:41 O2 Del Method 11/27/22 06:41 Airway Mallampati Class: I TM Dist: >3cm Neck ROM: Full Loose/Missing/Broken Teeth: Yes and Upper Heart: ok Lungs: ok Assessment and Plan Assessment Anesthesia Assessment: Anesthesia Plan Discussed and Chart Reviewed Final Anesthetic Review Family History of Problems with Anesthesia: No History of Problems with Anesthesia: No NPO: Yes ASA Class: III Final Preanesthetic Review: No Changes in Pt Med Stat, Meds/Allgs Chart Reviewed, Consent Obtained/Reviewed and Anes Risks/Benef Reviewed Patient Risk: Intermediate Procedure Risk: Low Anesthetic Plan Anesthetic Plan: GA and Agree w/ Assess. and Plan Disposition: Standard PACU
[2022-11-27] MEDS: Ketorolac Tromethamine 30 MG/ML VIAL 15 MG IVPUSH (09:15)
== END 2022-11-27 10:41 | disposition home or self-care (01) ==
PROVIDERS: PCP Physician Assistant; Visit Provider Surgery
PROC: (CPT 49520; principal; 2022-11-27 07:30)
DX: K40.91 Unilateral inguinal hernia, without obstruction or gangrene, recurrent (principal); R00.1 Bradycardia, unspecified; E78.2 Mixed hyperlipidemia; I25.10 Atherosclerotic heart disease of native coronary artery without angina pectoris; I10 Essential (primary) hypertension; I48.0 Paroxysmal atrial fibrillation; Z79.01 Long term (current) use of anticoagulants; Z79.899 Other long term (current) drug therapy; Z88.0 Allergy status to penicillin; Z91.040 Latex allergy status
CPT/HCPCS: 49520; C1781; J0690; J1885; J2405; J3010

== ENCOUNTER → 2022-12-09 10:20 | Outpatient (BNVA) | payer MEDICARE, SELFPAY | PROVIDERS: PCP Physician Assistant; Visit Provider Surgery | DX: Z13.89 Encounter for screening for other disorder (principal) | CPT/HCPCS: 99212 ==

== ENCOUNTER 2023-03-06 08:24 | Outpatient (REF) | payer MEDICARE, SELFPAY ==
[2023-03-06 12:03] LABS: Hematocrit 44.2 % (42.0-52.0); Hemoglobin 14.9 g/dl (14.0-18.0); Mean Corpuscular HGB Conc 33.7 g/dl (31.0-36.0); Mean Corpuscular Hemoglobin 31.8 pg (27.0-33.0); Mean Corpuscular Volume 94.2 fL (80.0-98.0); Mean Platelet Volume 10.5 fL (9.4-12.4); Platelet Count 273 X10*3/uL (160-400); Red Blood Count 4.69 X10*6/uL (4.60-5.80); Red Cell Distribution Width 12.2 % (11.0-16.0); White Blood Count 4.8 X10*3/uL (4.8-10.8)
[2023-03-06 12:21] LABS: Alanine Aminotransferase 61 U/L (0-40); Albumin Level 4.1 g/dL (3.5-5.0); Alkaline Phosphatase 63 U/L (39-117); Anion Gap 11 (12-20); Aspartate Amino Transferase 52 U/L (5-37); Bilirubin Total 0.9 mg/dL (0.0-1.0); Blood Urea Nitrogen 11 mg/dL (9-16); Calcium 9.3 mg/dL (8.4-10.2); Carbon Dioxide 27 mmol/L (22-29); Chloride 109 mmol/L (96-108); Cholesterol 145 mg/dL; Estimated Glomerular Filt Rate > 60; Glucose Fasting 101 mg/dL (60-99); HDL Cholesterol 50 mg/dL; LDL Cholesterol Calculated 76 mg/dl; Potassium 4.8 mmol/L (3.3-5.1); Sodium 142 mmol/L (135-145); Total Protein 6.6 g/dL (6.5-8.0); Triglycerides 97 mg/dL
[2023-03-06 12:34] LABS: Creatinine Urine 176.12 mg/dL; Microalbum/Creatinine Ratio Ur 4.5 ug/mg cr
[2023-03-06 12:44] LABS: Prostate Specific Antigen Scr 1.54 ng/mL (<0.05-4.0); TSH reflex Free T4 2.05 uIU/mL (0.32-4.0)
== END 2023-03-06 08:25 | disposition home or self-care (01) ==
LOC: HO.HMGCLDS 08:24
PROVIDERS: PCP Physician Assistant; Visit Provider Physician Assistant
DX: I10 Essential (primary) hypertension (principal); E78.2 Mixed hyperlipidemia; Z12.5 Encounter for screening for malignant neoplasm of prostate
CPT/HCPCS: 36415; 80053; 80061; 82043; 84153; 84443; 85027

== ENCOUNTER 2023-07-20 09:18 | Outpatient (REF) | payer MEDICARE, SELFPAY ==
--- NOTE | ~2023-07-20 | XR_ITS ---
EXAMINATION: XR KNEE, RIGHT CLINICAL INFORMATION: Reason for Exam M25.561 - Pain in right knee COMPARISON: None TECHNIQUE: 4 views of the knee FINDINGS: No acute fracture or dislocation. Moderate degenerative changes of the knee with loss of medial compartment joint space and medial and tricompartmental osteophytes.. No joint effusion. Atherosclerotic vascular calcification. XR/XR knee RT 4V IMPRESSION: * No acute osseous abnormality. * Moderate degenerative changes of the knee.
== END 2023-07-20 09:19 | disposition home or self-care (01) ==
LOC: HO.HMGCX 09:18
PROVIDERS: PCP Physician Assistant; Visit Provider Physician Assistant
DX: M25.561 Pain in right knee (principal)
CPT/HCPCS: 73564

== ENCOUNTER 2023-09-07 08:21 | Outpatient (REF) | payer MEDICARE, SELFPAY ==
[2023-09-07 11:39] LABS: Hematocrit 46.7 % (42.0-52.0); Hemoglobin 15.7 g/dl (14.0-18.0); Mean Corpuscular HGB Conc 33.6 g/dl (31.0-36.0); Mean Corpuscular Hemoglobin 31.9 pg (27.0-33.0); Mean Corpuscular Volume 94.9 fL (80.0-98.0); Mean Platelet Volume 10.4 fL (9.4-12.4); Platelet Count 290 X10*3/uL (160-400); Red Blood Count 4.92 X10*6/uL (4.60-5.80); White Blood Count 6.2 X10*3/uL (4.8-10.8)
[2023-09-07 12:57] LABS: Alanine Aminotransferase 40 U/L (0-40); Albumin Level 4.2 g/dL (3.5-5.0); Alkaline Phosphatase 65 U/L (39-117); Anion Gap 11 (12-20); Aspartate Amino Transferase 35 U/L (5-37); Bilirubin Total 1.1 mg/dL (0.0-1.0); Blood Urea Nitrogen 11 mg/dL (9-16); Calcium 9.6 mg/dL (8.4-10.2); Carbon Dioxide 28 mmol/L (22-29); Chloride 105 mmol/L (96-108); Cholesterol 157 mg/dL (<200); Estimated Glomerular Filt Rate > 60; Glucose Fasting 70 mg/dL (60-99); HDL Cholesterol 51 mg/dL (>40); LDL Cholesterol Calculated 85 mg/dL (<100); Potassium 4.2 mmol/L (3.3-5.1); Sodium 140 mmol/L (135-145); Total Protein 7.4 g/dL (6.5-8.0); Triglycerides 109 mg/dL (<150)
== END 2023-09-07 08:22 | disposition home or self-care (01) ==
LOC: HO.HMGCLDS 08:21
PROVIDERS: PCP Physician Assistant; Visit Provider Physician Assistant
DX: I10 Essential (primary) hypertension (principal); E78.2 Mixed hyperlipidemia
CPT/HCPCS: 36415; 80053; 80061; 85027

== ENCOUNTER 2023-09-17 08:25 | Outpatient (AMB) | payer MEDICARE, SELFPAY ==
[2023-09-17 08:44] VITALS: BP 120/62; PULSE 47; O2SAT 98; BMI 28.1
--- NOTE | 2023-09-17 08:44 | MHC.PC.OV ---
Vital Signs 09/17/23 08:44 Height 6 ft Weight 207 lb BMI 28.1 BP 120/62 Blood Pressure Location Lt brachial Position Sitting Pulse 47 L Pulse Source Pulse Oximeter Pulse Oximetry (%) 98 Oxygen Delivery Method Room Air Intake Visit Reasons: 6mth f/u Lead Software Developer Required: No Heritage Consultant: Not Required per policy Accompanied by: Self / Same As Patient Allergies adhesive tape [ADHESIVE TAPE] Allergy (Intermediate, Verified 09/17/23 09:22) HIVES Penicillins [PENICILLINS] Allergy (Unknown, Verified 09/17/23 09:22) UNKNOWN REACTION-CHILDHOOD ALLERGY heart monitor electrodes Allergy (Intermediate, Uncoded 09/17/23 09:22) Hives (if on for extended time frame) Medication List - Last Reconciled 09/17/23 by Dexter Patricia PA-C apixaban (Eliquis) 5 mg PO BID lovastatin 40 mg PO BEDTIME metoprolol succinate ER 50 mg PO DAILY Tobacco use date assessed: 03/17/23 Fall risk assessment: No Falls in past year Last assessed Fall Risk: 09/17/23 Dental Screening Dental Screen Date: 09/17/23 Did you have a dental visit in the last 12 months?: Yes Did you have a dental problem in the last 6 months where you did not have access to dental care?: No Was dental information given to patient?: Patient has dentist HPI 6mth f/u HPI Details Patient is a 73-year-old male here today for a f/u appointment.? Patient has a past medical history significant for polyarthritis, paroxysmal AFib, hypertension. Concerns--> reports having order S urine lately. Urinalysis in office today without any evidence of UTI. He will try to increase his water intake. .. Paroxysmal AFIB: Is followed by [facility]. No overt bleeding on eliquis.? He continues to be in p-AFib any symptoms.? Recent ECHO unremarkable. He does report feeling somewhat fatigued on minimal amounts of exertion any attributes this to his beta-dallin.? Today in office heart rates in the 40s. . Elevated liver enzymes: Have normalized , Noted slightly elevated liver enzymes likely secondary to is fatty liver disease. . Osteoarthritis:? Patient does report taking an ibuprofen 800 on a very limited basis.? He understands he is on anticoagulation therapy and should not be taking any NSAIDs though he only finds that ibuprofen works. Laboratory Tests 09/07/23 08:31 RBC 4.92 Cholesterol 157 LDL Cholesterol, C alc 85 [facility] Medical History History of cardioversion Polyarthritis Elevated cholesterol HTN (hypertension) Ascending aorta dilatation Atherosclerotic cardiovascular disease Sinus bradycardia PAF (paroxysmal atrial fibrillation) Surgical History History of left inguinal hernia (~11/27/22) Hx of cardiac catheterization History of colonoscopy (02/24/09) History of hemorrhoidectomy (04/05/19) History of right inguinal hernia repair (03/05/12) History of left inguinal hernia repair (09/04/11) History of umbilical hernia repair Family History Father CHF (congestive heart failure) Mother Hypertension Osteoarthritis Social History Housing: House Are you a primary medicare coordinator to a significant other at home: No Do you presently have visiting nurse or other home services: No Alcohol intake: current Alcohol intake frequency: a few times a week Alcohol type: beer Patient Tobacco Use Status: Never used Tobacco e-Cigarette/Vaping Use: Never Used Second Hand Smoke Exposure: Yes service: Yes Current occupational status: retired Cognitive needs: Yes Hearing needs: No Vision needs: No Questionnaire PHQ-9 Over the last 2 weeks, how often have you been bothered by any of the following problems? 1. Little interest or pleasure in doing things: not at all 2. Feeling down, depressed, or hopeless: not at all 3. Trouble falling or staying asleep, or sleeping too much: not at all 4. Feeling tired or having little energy: not at all 5. Poor appetite or overeating: not at all 6. Feeling bad about yourself - or that you are a failure or have let yourself or your family down: not at all 7. Trouble concentrating on things, such as reading the newspaper or watching television: not at all 8. Moving or speaking so slowly that other people could have noticed. Or the opposite - being so fidgety or restless that you have been moving around a lot more than usual: not at all 9. Thoughts that you would be better off or of hurting yourself in some way: not at all Total score: 0 Depression Screening Interpretation: Negative Depression Screening Done: Yes 49026 - PHQ-9 Billing: Yes Source: Developed by Drs. Robb Mccurdy, Quyen Jarquin, Alan Freeman and colleagues, with an educational jennifer from [employer]. Thrive Questionnaire Date Thrive assessed: 09/17/23 I am a: Patient What is your living situation today?: I have a steady place to live Within the past 12 months, did the food you bought not last and you didn't have the money to get more?: Never true Within the past 12 months, did you worry whether your food would run out before you got money to buy more?: Never true Do you have trouble paying for medicines?: No Do you have trouble getting transportation to medical appointments?: No Do you have trouble paying your heating and electricity bill?: No Do you have trouble taking care of your child, family member or friend?: No Do you have trouble with day-to-day activities such as bathing, preparing meals, shopping, managing finances, etc.?: No Are you currently unemployed and looking for a job?: No Are you interested in more education?: No Please select the resources that you would like help with: None AUDIT C Alcohol Use Questionnaire (AUDIT-C) 1. How often do you have a drink containing alcohol?: Never 3. How often do you have six or more drinks on one occasion?: Never Total Score: 0 MELITON-7 AMB Questionnaire MELITON-7 Date MELITON - 7 assessed: 09/17/23 Feeling nervous, anxious, or on edge: 0 = Not at all Not being able to stop or control worryin = Not at all Worrying too much about different things: 0 = Not at all Trouble relaxin = Not at all Being so restless that it is hard to sit still: 0 = Not at all Becoming easily annoyed or irritable: 0 = Not at all Feeling afraid as if something awful might happen: 0 = Not at all Total MELITON-7 score (0-4 normal; 5-9 mild; 10-14 moderate; 15-21 severe): 0 Source: Developed by Drs. Robb Mccurdy, Quyen Jarquin, Alan Freeman and colleagues, with an educational jennifer from [employer]. MELITON-7 Assessment Billing MELITON-7 Assessment Tool: MELITON-7 Assessment 62589 Review of Systems Const Denies headache(s) Eyes Denies loss of vision ENT Denies vertigo, Denies dizziness, Denies headache(s) and Denies sore throat Card Denies chest pain, Denies leg edema and Denies lightheadedness Resp Denies cough, Denies hemoptysis and Denies wheezing GI Denies abdominal pain, Denies melena, Denies constipation, Denies diarrhea and Denies vomiting Denies dysuria, Denies urinary frequency and Denies urinary urgency Musc Denies arthralgias, Denies joint swelling, Denies numbness and Denies tingling Neuro Denies Abnormal speech present, Denies behavioral changes, Denies vertigo, Denies dizziness, Denies headache(s), Denies loss of vision, Denies memory loss, Denies numbness and Denies tingling Psych Denies anxiety, Denies behavioral changes, Denies depression, Denies memory loss and Denies panic attacks Cortes/Lymph Denies easy bleeding and Denies easy bruising Aller/Immun Denies wheezing Physical exam (Primary Care) Vital Signs: Last Vital Signs Pulse 47 L 09/17/23 08:44 BP 120/62 09/17/23 08:44 Pulse Ox 98 09/17/23 08:44 Oxygen Delivery Method Room Air 09/17/23 08:44 BMI result Body Mass Index 28.1 Tobacco/Smoking Status: Tobacco use Status Tobacco use date assessed 03/17/23 09/17/23 08:45 Patient Tobacco Use Status Never used Tobacco 09/17/23 08:45 e-Cigarette/Vaping Use Never Used 09/17/23 08:45 PHQ-9: PHQ-9 Score PHQ-9: Total score 0 09/17/23 10:41 Depression Screening Interpretation: Negative Thrive Assessment: Date of Thrive Assessment Date Thrive assessed 09/17/23 09/17/23 08:45 Const General: healthy appearing, no acute distress, alert and awake Nutritional Appearance: well nourished Orientation/consciousness: oriented to person, oriented to place and oriented to time HENMT Ears: TM's normal bilaterally General nose exam: Normal nasal mucous membranes and turbinates present Eyes Conjunctivae: conjunctivae normal Sclerae: sclerae normal Pupils: Equal, round and reactive pupils present Neck Neck: Yes no lymphadenopathy and Yes no JVD Thyroid: Thyroid normal Carotids: no bruits Resp Effort & Inspection: normal respiratory effort and not tachypneic Auscultation: no crackles, no rales, no rhonchi and no wheezes Cardio Rate: regular rate Rhythm: regular rhythm Heart sounds: no murmurs and normal S1 and S2 GI Palpation (GI): Soft to palpation, nontender, no hepatomegaly and no splenomegaly Auscultation: normal bowel sounds Skin General skin exam: no rashes or lesions noted and dry skin Neuro General: oriented to person, oriented to place and oriented to time Cranial nerves: Yes Equal, round and reactive pupils present Speech: No Abnormal speech present Gait exam (Neuro): Normal gait present Motor exam (neuro): no tremor noted Extrem Right upper extremity: full ROM Left upper extremity: full ROM Right lower extremity: full ROM; no edema Left lower extremity: full ROM; no edema Psych Mental Status: mental status grossly normal Speech and movement: Normal speech and movement present Affect: normal affect Attitude: cooperative Thought process: Normal thought process present Results AMB Urinalysis, Automated UA Leukoctes 0 Helen/uL Last Edit by BRISEYDA Franz on 09/17/23 10:42 UA Nitrite Negative Last Edit by BRISEYDA Franz on 09/17/23 10:42 UA Urobilinogen 0 mg/dL Last Edit by BRISEYDA Franz on 09/17/23 10:42 UA Protein 0 mg/dL Last Edit by BRISEYDA Franz on 09/17/23 10:42 UA pH 6.0 Last Edit by BRISEYDA Franz on 09/17/23 10:42 UA Blood 0 Ulises/uL Last Edit by BRISEYDA Franz on 09/17/23 10:42 UA Specific [place] 1.025 Last Edit by BRISEYDA Franz on 09/17/23 10:42 UA Ketone Negative Last Edit by BRISEYDA Franz on 09/17/23 10:42 UA Bilirubin 0 mg/dL Last Edit by BRISEYDA Franz on 09/17/23 10:42 UA Glucose 0 mg/dL Last Edit by BRISEYDA Franz on 09/17/23 10:42 Results Reviewed Results Reviewed: Laboratory Last Values Urine pH (Auto) 6.0 09/17/23 09:21 Specific [place] (Auto) 1.025 09/17/23 09:21 Urine Protein (Auto) 0 mg/dL 09/17/23 09:21 Glucose (UA)(Auto) 0 mg/dL 09/17/23 09:21 Urine Ketones (Auto) Negative 09/17/23 09:21 Urine Blood (Auto) 0 Ulises/uL 09/17/23 09:21 Urine Nitrite (Auto) Negative 09/17/23 09:21 Urine Bilirubin (Auto) 0 mg/dL 09/17/23 09:21 Urine Urobilinogen (Auto) 0 mg/dL 09/17/23 09:21 Leukocyte Esterase (Auto) 0 Helen/uL 09/17/23 09:21 Assessment and Plan Assessment & Plan (1) HTN (hypertension): Code(s): I10 - Essential (primary) hypertension Qualifiers: Hypertension type: primary hypertension Qualified Code(s): I10 - Essential (primary) hypertension Plan: Patient's blood pressure acceptable today in office. Will continue his current dose of 1 Toprol with goal blood pressure be below 140/90 (2) HLD (hyperlipidemia): Code(s): E78.5 - Hyperlipidemia, unspecified Qualifiers: Hyperlipidemia type: mixed hyperlipidemia Qualified Code(s): E78.2 - Mixed hyperlipidemia Plan: Patient's most recent lipid panel showing excellent control of his total cholesterol and LDL. Continues on lovastatin 40 mg. Noted elevations in his liver enzymes and consider reducing hold statin see (3) PAF (paroxysmal atrial fibrillation): Code(s): I48.0 - Paroxysmal atrial fibrillation Plan: To follow cardiology, continues on Eliquis 5 mg b.i.d. without any overt signs of bleeding. Otherwise denies any chest discomfort or palpitations. (4) Fatty liver disease, nonalcoholic: Code(s): K76.0 - Fatty (change of) liver, not elsewhere classified Plan: Noted elevations in liver enzymes likely secondary to his fatty liver disease. Liver enzymes have normalized. Continues on statin therapy (5) Elevated liver enzymes: Code(s): R74.8 - Abnormal levels of other serum enzymes Plan: As above (6) Bad odor of urine: Code(s): R82.90 - Unspecified abnormal findings in urine Plan: Urinalysis today in office without any evidence of UTI. He will try to increase his free fluids. Orders: Orders Lipid Panel Today E78.2 - Mixed hyperlipidemia Complete Blood Count no Diff Today I10 - Essential (primary) hypertension AMB Urinalysis Automated Today R82.90 - Unspecified abnormal findings in urine Microalbumin, Random (w Creat) Today I10 - Essential (primary) hypertension Comprehensive [place]. Panel Fast Today I10 - Essential (primary) hypertension Prostate Specific Antigen Scr Today I10 - Essential (primary) hypertension, Z12.5 - Encounter for screening for malignant neoplasm of prostate Coding Level of Care Code Est Pt Level 4 (13777) Diagnoses Primary hypertension I10 Hypertension type: primary hypertension Mixed hyperlipidemia E78.2 Hyperlipidemia type: mixed hyperlipidemia PAF (paroxysmal atrial fibrillation) I48.0 Fatty liver disease, nonalcoholic K76.0 Elevated liver enzymes R74.8 Bad odor of urine R82.90 Additional Codes MELITON-7 Assessment Billing - MELITON-7 Assessment Tool: MELITON-7 Assessment 94052 ([id number])
== END 2023-09-17 09:31 | disposition home or self-care (01) ==
PROVIDERS: Visit Provider Physician Assistant
DX: I10 Essential (primary) hypertension (principal); E78.2 Mixed hyperlipidemia; I48.0 Paroxysmal atrial fibrillation; K76.0 Fatty (change of) liver, not elsewhere classified; R74.8 Abnormal levels of other serum enzymes; R82.90 Unspecified abnormal findings in urine
CPT/HCPCS: 81003; 99214

== ENCOUNTER 2023-10-26 08:46 | Outpatient (AMB) | payer MEDICARE, SELFPAY ==
[2023-10-26 08:58] VITALS: BP 120/70; PULSE 51; BMI 28.8
--- NOTE | 2023-10-26 08:58 | MHC.OFFVIS ---
Intake Vital Signs 10/26/23 08:58 Height 6 ft Weight 212 lb 8.41 oz BMI 28.8 BP 120/70 Blood Pressure Location Lt brachial Position Sitting Pulse 51 Intake Visit Reasons: 1 year follow up Intake Note: 1 yr f/up pt its feeling fine Electrician'S Helper Required: No Accompanied by: Self / Same As Patient Allergies adhesive tape [ADHESIVE TAPE] Allergy (Intermediate, Verified 09/17/23 09:22) HIVES Penicillins [PENICILLINS] Allergy (Unknown, Verified 09/17/23 09:22) UNKNOWN REACTION-CHILDHOOD ALLERGY heart monitor electrodes Allergy (Intermediate, Uncoded 09/17/23 09:22) Hives (if on for extended time frame) Medication List - Last Reconciled 10/26/23 by Mani Lowe MD apixaban (Eliquis) 5 mg PO BID lovastatin 40 mg PO BEDTIME metoprolol succinate ER 50 mg PO DAILY HPI HPI Comments History of Present Illness Details Yomi returns for follow-up of atrial fibrillation. In 2016, he underwent THOMAS/cardioversion. In that regard, he has been fairly stable for years. He is maintained on metoprolol and Eliquis. Otherwise, he states that whenever he exerts himself he gets like a tightness in the throat area. There has been apparently present for many years. Exertional characteristics suggestive of anginal equivalent. PENDING SALE TO [facility] Medical History History of cardioversion Polyarthritis Elevated cholesterol HTN (hypertension) Ascending aorta dilatation Atherosclerotic cardiovascular disease Sinus bradycardia PAF (paroxysmal atrial fibrillation) Surgical History History of left inguinal hernia (~11/27/22) Hx of cardiac catheterization History of colonoscopy (02/24/09) History of hemorrhoidectomy (04/05/19) History of right inguinal hernia repair (03/05/12) History of left inguinal hernia repair (09/04/11) History of umbilical hernia repair Family History Father CHF (congestive heart failure) Mother Hypertension Osteoarthritis Social History Housing: House Are you a primary customer care manager to a significant other at home: No Do you presently have visiting nurse or other home services: No Alcohol intake: current Alcohol intake frequency: a few times a week Alcohol type: beer Patient Tobacco Use Status: Never used Tobacco e-Cigarette/Vaping Use: Never Used Second Hand Smoke Exposure: Yes service: Yes Current occupational status: retired Cognitive needs: Yes Hearing needs: No Vision needs: No Review of Systems Const Reports chills, Reports fatigue, Reports fever(s), Reports frequent falls, Reports weakness, Reports weight gain and Reports weight loss ENT Reports dizziness Card Reports chest pain, Reports leg edema, Reports lightheadedness, Reports palpitations, Reports dyspnea and Reports dyspnea on exertion Resp Reports cough, Reports dyspnea and Reports dyspnea on exertion GI Reports hematochezia Musc Reports abnormal gait, Reports muscle weakness, Reports numbness, Reports radiating pain into limb and Reports tingling Neuro Reports abnormal gait, Reports dizziness, Reports frequent falls, Reports numbness, Reports tingling and Reports weakness Endo Reports fatigue and Reports palpitations Physical Exam Vital Signs: Last Vital Signs Pulse 51 10/26/23 08:58 BP 120/70 10/26/23 08:58 BMI result Body Mass Index 28.8 Const General: comfortable and no acute distress Orientation/consciousness: patient oriented x3 HEENT Other: Unremarkable Head: Yes normal to inspection Neck Neck: Yes normal visual inspection Chest Chest palpation & inspection: normal inspection of the chest Resp Auscultation: clear to auscultation bilaterally Cardio Palpation: normal PMI Heart sounds: S1 normal heart sound present, S2 normal heart sound present, no gallops, no murmurs and no rubs GI Palpation (GI): Soft to palpation Back/Spine/Pelvis Other: unremarkable Skin General skin exam: no rashes or lesions noted Neuro General: patient oriented x3 Extrem General: Yes normal to inspection Psych Mental Status: mental status grossly normal Office Procedures EKG Details: EKG with sinus bradycardia at 51/Min; right bundle-branch block pattern; borderline WI prolongation to 206 milliseconds. [id number], Complete Assessment & Plan Assessment & Plan (1) PAF (paroxysmal atrial fibrillation): Code(s): I48.0 - Paroxysmal atrial fibrillation Plan: Continue beta-blockers. Continue anticoagulation. Remote history of abnormal LFTs with ? Multaq (2) Atherosclerotic cardiovascular disease: Code(s): I25.10 - Atherosclerotic heart disease of [place] coronary artery without angina pectoris Plan: Cardiac catheterization done 2010. He had ostial lesion in a small 1st diagonal not amenable to PCI. Non-obstructive disease elsewhere. Patient describes exertional throat tightness type symptoms. Last year, he had ETT and that again had the same symptom and he was able to just reach Malachi stage 2. He did reach target heart rate and then switched over to Lexiscan which showed unremarkable perfusion. Considering the reproducible nature of exertional neck tightness, recommended diagnostic catheterization to assess this further. Patient agreeable. (3) Sinus bradycardia: Code(s): R00.1 - Bradycardia, unspecified Plan: No specific symptoms. Hence can continue beta-blockers. (4) Ascending aorta dilatation: Code(s): I77.810 - Thoracic aortic ectasia Plan: In the last echo, ascending aortic size 4.2 cm. We can monitor this periodically. Orders: Orders Cardiac Cath LT Diagnostic Today I25.10 - Atherosclerotic heart disease of [place] coronary artery without angina pectoris Complete Blood Count no Diff Today I25.10 - Atherosclerotic heart disease of [place] coronary artery without angina pectoris Basic Metabolic Panel Today I25.10 - Atherosclerotic heart disease of [place] coronary artery without angina pectoris Prothrombin Time INR Today I25.10 - Atherosclerotic heart disease of [place] coronary artery without angina pectoris Coding Level of Care Code Est Pt Level 4 (10759) Diagnoses PAF (paroxysmal atrial fibrillation) I48.0 Atherosclerotic cardiovascular disease I25.10 Sinus bradycardia R00.1 Ascending aorta dilatation I77.810 CPT Codes EKG - CPT: 07051-[id number], Complete ([id number])
== END 2023-10-26 09:22 | disposition home or self-care (01) ==
PROVIDERS: PCP Physician Assistant; Visit Provider Internal Medicine
DX: I48.0 Paroxysmal atrial fibrillation (principal); I25.10 Atherosclerotic heart disease of native coronary artery without angina pectoris; R00.1 Bradycardia, unspecified; I77.810 Thoracic aortic ectasia
CPT/HCPCS: 93010; 99214

== ENCOUNTER 2023-10-26 08:46 | Outpatient (REF) | payer MEDICARE, SELFPAY ==
[2023-10-26 10:35] LABS: Hematocrit 42.9 % (42.0-52.0); Hemoglobin 15.1 g/dl (14.0-18.0); Mean Corpuscular HGB Conc 35.2 g/dl (31.0-36.0); Mean Corpuscular Hemoglobin 32.7 pg (27.0-33.0); Mean Corpuscular Volume 92.9 fL (80.0-98.0); Mean Platelet Volume 9.9 fL (9.4-12.4); Platelet Count 243 X10*3/uL (160-400); Red Blood Count 4.62 X10*6/uL (4.60-5.80); Red Cell Distribution Width 12.5 % (11.0-16.0); White Blood Count 6.4 X10*3/uL (4.8-10.8)
[2023-10-26 10:45] LABS: INTERNATIONAL NORM RATIO 1.3 (0.9-1.1); Prothrombin Time 15.4 SEC (11.1-13.3)
[2023-10-26 11:13] LABS: Anion Gap 13 (12-20); Blood Urea Nitrogen 16 mg/dL (9-16); Calcium 9.7 mg/dL (8.4-10.2); Carbon Dioxide 28 mmol/L (22-29); Chloride 107 mmol/L (96-108); Estimated Glomerular Filt Rate > 60; Glucose Random 94 mg/dL (60-115); Potassium 4.5 mmol/L (3.3-5.1); Sodium 143 mmol/L (135-145)
== END 2023-10-26 08:47 | disposition home or self-care (01) ==
LOC: HO.LAB 08:46
PROVIDERS: PCP Physician Assistant; Visit Provider Internal Medicine
DX: I48.0 Paroxysmal atrial fibrillation (principal); I25.10 Atherosclerotic heart disease of native coronary artery without angina pectoris; R00.1 Bradycardia, unspecified; I77.810 Thoracic aortic ectasia
CPT/HCPCS: 36415; 80048; 85027; 85610; 93005; 99212

== ENCOUNTER → 2023-11-05 23:59 | Outpatient (BNV) | payer MEDICARE, SELFPAY | PROVIDERS: PCP Physician Assistant; Visit Provider Internal Medicine Cardiovascular Disease | DX: I20.89 Other forms of angina pectoris (principal) | CPT/HCPCS: 92928; 93458; 99152 ==

== ENCOUNTER 2023-11-19 08:23 | Outpatient (AMB) | payer MEDICARE, SELFPAY ==
--- NOTE | 2023-11-19 08:36 | A.OFFVIS_ITS ---
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 Allergies adhesive tape [ADHESIVE TAPE] Allergy (Intermediate, Verified 11/19/23 08:38) HIVES Penicillins [PENICILLINS] Allergy (Unknown, Verified 11/19/23 08:38) UNKNOWN REACTION-CHILDHOOD ALLERGY heart monitor electrodes Allergy (Intermediate, Uncoded 09/17/23 09:22) Hives (if on for extended time frame) Medication List - Last Reconciled 11/19/23 by Dina Fuentes NP-C apixaban (Eliquis) 5 mg PO BID clopidogrel 75 mg PO DAILY lovastatin 40 mg PO BEDTIME metoprolol succinate ER 50 mg PO DAILY HPI 2 wk s/p cath HS HPI Details Yomi is a 73-year-old male with past medical history of hypertension, hyperlipidemia, bradycardia, paroxysmal atrial fibrillation, dilated ascending aorta, coronary artery disease with prior catheterization 2010 showing ostial lesion in small 1st diagonal, nonobstructive disease elsewhere who has been reporting exertional throat tightness. He had nuclear stress test last year for this symptom which was normal. Cardiac catheterization was done showing mid LAD 80% stenosis, ISAAC placed. He now presents for follow-up. Today he reports that he has not had any recent throat discomfort. He says he only gets it when he does exertional activities which is mostly in the nicer weather, when he is more active. He has not been doing anything exertional recently. He denies having chest discomfort, shortness of breath, palpitations, presyncope, syncope, PND, orthopnea or edema. He tolerates normal ADLs without difficulty. He takes his medications as directed. No bleeding issues reported. Right radial catheterization site feels good. [facility] Medical History (Updated 11/19/23 @ 10:40 by HILDA Lambert) Ascending aorta dilatation History of cardioversion Polyarthritis Elevated cholesterol HTN (hypertension) Atherosclerotic cardiovascular disease Sinus bradycardia PAF (paroxysmal atrial fibrillation) Surgical History (Updated 11/19/23 @ 10:56 by ESTRADA LambertC) History of left inguinal hernia (~11/27/22) Hx of cardiac catheterization History of colonoscopy (02/24/09) History of hemorrhoidectomy (04/05/19) History of right inguinal hernia repair (03/05/12) History of left inguinal hernia repair (09/04/11) History of umbilical hernia repair Family History Father CHF (congestive heart failure) Mother Hypertension Osteoarthritis Social History Housing: House Are you a primary field care coordinator to a significant other at home: No Do you presently have visiting nurse or other home services: No Alcohol intake: current Alcohol intake frequency: a few times a week Alcohol type: beer Patient Tobacco Use Status: Never used Tobacco e-Cigarette/Vaping Use: Never Used Second Hand Smoke Exposure: Yes service: Yes Current occupational status: retired Cognitive needs: Yes Hearing needs: No Vision needs: No Review of Systems Const All systems reviewed & are unremarkable except as noted in HPI and below ENT Denies dizziness Card Denies chest pain, Denies chest pain at rest, Denies chest pain with activity, Denies rapid heart rate, Denies pedal edema, Denies edema, Denies leg edema, Denies lightheadedness, Denies palpitations, Denies dyspnea, Denies dyspnea on exertion and Denies orthopnea Resp Denies cough, Denies dyspnea and Denies dyspnea on exertion GI Denies hematochezia and Denies change in stool character Musc Denies abnormal gait, Denies limited range of motion, Denies muscle cramps, Denies muscle weakness, Denies numbness, Denies radiating pain into limb, Denies stiffness and Denies tingling Neuro Denies abnormal gait, Denies dizziness, Denies numbness and Denies tingling Endo Denies palpitations Physical Exam Vital Signs: Last Vital Signs Pulse 60 11/19/23 08:37 BP 140/60 H 11/19/23 08:37 BMI result Body Mass Index 28.8 Const General: cooperative, healthy appearing, comfortable and no acute distress Orientation/consciousness: patient oriented x3 Neck Neck: Yes normal visual inspection and Yes no JVD Resp Effort & Inspection: normal respiratory effort Auscultation: clear to auscultation bilaterally, no crackles, no rales, no rhonchi and no wheezes Cardio Jugular venous distension: no JVD Rate: regular rate Rhythm: regular rhythm Heart sounds: S1 normal heart sound present, S2 normal heart sound present, no murmurs and no rubs Neuro General: patient oriented x3 Extrem General: Yes normal to inspection and No no pedal edema Psych Appearance: grossly normal Mental Status: mental status grossly normal Speech and movement: Normal speech and movement present Assessment & Plan Assessment & Plan (1) Angina of effort: Code(s): I20.89 - Other forms of angina pectoris Plan: Reports of throat tightness with exertional activities. This symptom has been evaluated previously with nuclear stress test 11/04/2022 showing normal my ocardial perfusion imaging. Last echocardiogram done 10/29/2022 showing EF 60- 65%, no reported regional wall motion abnormality. He underwent cardiac catheterization 11/05/2023 showing mid LAD 80% stenosis involving the D1 bifurcation. Nonobstructive CAD in the remaining LAD. He had ISAAC placed. Today he reports that he has not had any recurrent throat tightness however has not done any exertional activities. He is on Plavix and will remain on it uninterrupted for 1 year. He is not on aspirin as he is on Eliquis. No bleeding issues reported. He is on lovastatin and last LDL 85 on 09/07/2023. At this time will change him over to atorvastatin 40 mg daily. Fasting labs are already ordered by his PCP. He is on metoprolol. Signs and symptoms of angina reviewed. Right radial catheterization site is well healed. Will order cardiac rehab for him. Cardiology follow-up in 3-4 months, sooner if needed to evaluate med tolerance and assess for angina. Emergency care if ever needed for symptoms. (2) Atherosclerotic cardiovascular disease: Code(s): I25.10 - Atherosclerotic heart disease of [place] coronary artery without angina pectoris Plan: And known history of CAD. Cardiac catheterization in 2010 with ostial lesion in a small 1st diagonal and nonobstructive disease elsewhere. He has been on anticoagulation, lovastatin and metoprolol. Cardiac catheterization as above with progression of disease and stent placement. Med adjustments as above. (3) S/P cardiac cath: Comment: 11/05/23 Left main normal, left circumflex minimal irregularities, RCA normal, lad mid 80% stenosis at D1 bifurcation, ISAAC placed, distal LAD 50% stenosis, proximal 40% stenosis Code(s): Z98.890 - Other specified postprocedural states Plan: Right radial catheterization site well healed (4) HTN (hypertension): Code(s): I10 - Essential (primary) hypertension Qualifiers: Hypertension type: primary hypertension Qualified Code(s): I10 - Essential (primary) hypertension Plan: Mild elevation today. Blood pressures reviewed and normally he is well controlled. Reviewed low-salt diet, ongoing weight control. Continue metoprolol. If blood pressure remains mildly elevated than Zhao/Arb can be used. Will fax this note to his PCP (5) HLD (hyperlipidemia): Code(s): E78.5 - Hyperlipidemia, unspecified Qualifiers: Hyperlipidemia type: mixed hyperlipidemia Qualified Code(s): E78.2 - Mixed hyperlipidemia Plan: [place] LDL goal less than 70. Changing to atorvastatin for better lipid control. He has had myalgias in the past with statin use so will avoid high-dose atorvastatin at present. Discussed use of coenzyme Q10 if he does develop myalgias. Fasting lipid due in 2-[address] (6) PAF (paroxysmal atrial fibrillation): Code(s): I48.0 - Paroxysmal atrial fibrillation Plan: History of paroxysmal atrial fibrillation. Currently controlled with the use of metoprolol. He has not felt any recent heart palpitations. Pulse is very regular on examination today. He is on Eliquis for anticoagulation. No bleeding issues reported. Recent labs show no anemia. Labs 10/26/2023 showed creatinine 1.12. (7) Sinus bradycardia: Code(s): R00.1 - Bradycardia, unspecified Plan: History of sinus bradycardia. He is currently on metoprolol at 50 mg daily which he is tolerating. (8) Ascending aorta dilatation: Code(s): I77.810 - Thoracic aortic ectasia Plan: Last echo 10/29/2022 showed dilated ascending aorta 4.2 cm which was unchanged from echo 07/2021. Will plan for a repeat echocardiogram 2 years from the last, due 10/2024. Order placed. Plan Time spent on chart review, documentation, interview and assessment Orders: Orders CA echo transthoracic complete 11 Months I77.810 - Thoracic aortic ectasia Cardiac Rehab Today I25.10 - Atherosclerotic heart disease of [place] coronary artery without angina pectoris, Z95.5 - Presence of coronary angioplasty implant and graft, Z98.890 - Other specified postprocedural states Medications: New atorvastatin 40 mg PO BEDTIME 30 tabs 5RF clopidogrel 75 mg PO DAILY 90 tabs 3RF Discontinued lovastatin Discontinued Reason: Doctor's Order 40 mg PO BEDTIME 90 tabs 3RF Coding Level of Care Code Est Pt Level 4 (16827) Diagnoses Angina of effort I20.89 Atherosclerotic cardiovascular disease I25.10 S/P cardiac cath Z98.890 Primary hypertension I10 Hypertension type: primary hypertension Mixed hyperlipidemia E78.2 Hyperlipidemia type: mixed hyperlipidemia PAF (paroxysmal atrial fibrillation) I48.0 Sinus bradycardia R00.1 Ascending aorta dilatation I77.810 Time Spent (min) 30
[2023-11-19 08:37] VITALS: BP 140/60; PULSE 60; BMI 28.8
== END 2023-11-19 09:04 | disposition home or self-care (01) ==
PROVIDERS: PCP Physician Assistant; Visit Provider Nurse Practitioner Family
DX: I20.89 Other forms of angina pectoris (principal); I25.10 Atherosclerotic heart disease of native coronary artery without angina pectoris; Z98.890 Other specified postprocedural states; I10 Essential (primary) hypertension; E78.2 Mixed hyperlipidemia; I48.0 Paroxysmal atrial fibrillation; R00.1 Bradycardia, unspecified; I77.810 Thoracic aortic ectasia
CPT/HCPCS: 99214

== ENCOUNTER → 2023-11-19 08:23 | Outpatient (BNVA) | payer MEDICARE, SELFPAY | PROVIDERS: PCP Physician Assistant; Visit Provider Nurse Practitioner Family | DX: I25.118 Atherosclerotic heart disease of native coronary artery with other forms of angina pectoris (principal); I10 Essential (primary) hypertension; E78.2 Mixed hyperlipidemia; I48.0 Paroxysmal atrial fibrillation; R00.1 Bradycardia, unspecified; I77.810 Thoracic aortic ectasia; Z79.01 Long term (current) use of anticoagulants; Z79.02 Long term (current) use of antithrombotics/antiplatelets; Z79.899 Other long term (current) drug therapy; Z98.890 Other specified postprocedural states | CPT/HCPCS: 99212 ==

== ENCOUNTER 2024-03-08 08:39 | Outpatient (REF) | payer MEDICARE, SELFPAY ==
[2024-03-08 10:34] LABS: Hematocrit 44.2 % (42.0-52.0); Hemoglobin 15.4 g/dl (14.0-18.0); Mean Corpuscular HGB Conc 34.8 g/dl (31.0-36.0); Mean Corpuscular Hemoglobin 32.5 pg (27.0-33.0); Mean Corpuscular Volume 93.2 fL (80.0-98.0); Mean Platelet Volume 10.2 fL (9.4-12.4); Platelet Count 264 X10*3/uL (160-400); Red Blood Count 4.74 X10*6/uL (4.60-5.80); Red Cell Distribution Width 12.2 % (11.0-16.0); White Blood Count 5.5 X10*3/uL (4.8-10.8)
[2024-03-08 10:58] LABS: Alanine Aminotransferase 47 U/L (0-40); Albumin Level 4.2 g/dL (3.5-5.0); Alkaline Phosphatase 66 U/L (39-117); Anion Gap 16 (12-20); Aspartate Amino Transferase 45 U/L (5-37); Bilirubin Total 1.1 mg/dL (0.0-1.0); Blood Urea Nitrogen 11 mg/dL (9-16); Calcium 9.7 mg/dL (8.4-10.2); Carbon Dioxide 24 mmol/L (22-29); Chloride 107 mmol/L (96-108); Cholesterol 158 mg/dL (<200); Estimated Glomerular Filt Rate > 60; Glucose Fasting 95 mg/dL (60-99); HDL Cholesterol 52 mg/dL (>40); LDL Cholesterol Calculated 87 mg/dL (<100); Potassium 4.6 mmol/L (3.3-5.1); Sodium 142 mmol/L (135-145); Total Protein 7.4 g/dL (6.5-8.0); Triglycerides 99 mg/dL (<150)
[2024-03-08 11:12] LABS: Creatinine Urine 107.14 mg/dL; Microalbumin Urine < 5.0 mg/L
[2024-03-08 11:12] LABS: Prostate Specific Antigen Scr 1.69 ng/mL (<0.05-4.0)
== END 2024-03-08 08:40 | disposition home or self-care (01) ==
LOC: HO.HMGCLDS 08:39
PROVIDERS: PCP Physician Assistant; Visit Provider Physician Assistant
DX: I10 Essential (primary) hypertension (principal); E78.2 Mixed hyperlipidemia; Z12.5 Encounter for screening for malignant neoplasm of prostate
CPT/HCPCS: 36415; 80053; 80061; 82043; 82570; 84153; 85027

== ENCOUNTER 2024-03-17 08:22 | Outpatient (AMB) | payer MEDICARE, SELFPAY ==
[2024-03-17 08:42] VITALS: BP 116/62; PULSE 53; O2SAT 97; BMI 28.5
--- NOTE | 2024-03-17 08:42 | MHC.PC.OV ---
Vital Signs 03/17/24 08:42 Height 6 ft Weight 210 lb BMI 28.5 BP 116/62 Blood Pressure Location Lt brachial Position Sitting Pulse 53 Pulse Source Pulse Oximeter Pulse Oximetry (%) 97 Oxygen Delivery Method Room Air Intake Visit Reasons: f/u HTN/ AFIB Allergies adhesive tape [ADHESIVE TAPE] Allergy (Intermediate, Verified 11/19/23 08:38) HIVES Penicillins [PENICILLINS] Allergy (Unknown, Verified 11/19/23 08:38) UNKNOWN REACTION-CHILDHOOD ALLERGY atorvastatin Adverse Reaction (Intermediate, Verified 12/24/23 13:55) Altered Mood heart monitor electrodes Allergy (Intermediate, Uncoded 09/17/23 09:22) Hives (if on for extended time frame) Medication List - Last Reconciled 03/17/24 by Dexter Patricia PA-C apixaban (Eliquis) 5 mg PO BID clopidogrel 75 mg PO DAILY lovastatin 40 mg PO DAILY 90 days metoprolol succinate ER 50 mg PO DAILY Tobacco use date assessed: 03/17/24 Fall risk assessment: No Falls in past year Last assessed Fall Risk: 03/17/24 Dental Screening Dental Screen Date: 03/17/24 Did you have a dental visit in the last 12 months?: Yes Did you have a dental problem in the last 6 months where you did not have access to dental care?: No Was dental information given to patient?: Patient has dentist HPI f/u HTN/ AFIB HPI Details Patient is a 74-year-old male here today for a f/u appointment.? Patient has a past medical history significant for polyarthritis, paroxysmal AFib, hypertension. concerns--> .. Paroxysmal AFIB: Is followed by [facility]. No overt bleeding on eliquis.? He continues to be in p-AFib any symptoms.? Recent ECHO unremarkable. Coronary artery disease: Due to reports exertional throat tightness patient sent for nuclear stress test which was normal. Recently underwent a cardiac catheterization in that showed 80% stenosis in the LAD, drug-eluting stent was placed. Now feeling a bit better. .. Elevated liver enzymes: Have normalized , Noted slightly elevated liver enzymes likely secondary to is fatty liver disease. . Osteoarthritis:? Patient does report taking an ibuprofen 800 on a very limited basis.? He understands he is on anticoagulation therapy and should not be taking any NSAIDs though he only finds that ibuprofen works. Laboratory Tests 09/07/23 03/08/24 03/08/24 08:31 08:00 08:47 RBC 4.74 Hgb 15.4 AST 35 45 H ALT 40 47 H Cholesterol 158 LDL Cholesterol, C alc 87 PSA Screen 1.69 Urine Microalbumin < 5.0 PENDING SALE TO [facility] Medical History (Updated 03/21/24 @ 07:50 by Dexter Patricia PA-C) Eustachian tube dysfunction Anticoagulated Ascending aorta dilatation History of cardioversion Polyarthritis Elevated cholesterol HTN (hypertension) Atherosclerotic cardiovascular disease Sinus bradycardia PAF (paroxysmal atrial fibrillation) Surgical History History of left inguinal hernia (~11/27/22) Hx of cardiac catheterization History of colonoscopy (02/24/09) History of hemorrhoidectomy (04/05/19) History of right inguinal hernia repair (03/05/12) History of left inguinal hernia repair (09/04/11) History of umbilical hernia repair Family History Father CHF (congestive heart failure) Mother Hypertension Osteoarthritis Social History Housing: House Are you a primary healthcare prof to a significant other at home: No Do you presently have visiting nurse or other home services: No Alcohol intake: current Alcohol intake frequency: a few times a week Alcohol type: beer Patient Tobacco Use Status: Never used Tobacco e-Cigarette/Vaping Use: Never Used Second Hand Smoke Exposure: Yes service: Yes Current occupational status: retired Cognitive needs: Yes Hearing needs: No Vision needs: No Questionnaire PHQ-9 Over the last 2 weeks, how often have you been bothered by any of the following problems? 1. Little interest or pleasure in doing things: not at all 2. Feeling down, depressed, or hopeless: not at all 3. Trouble falling or staying asleep, or sleeping too much: not at all 4. Feeling tired or having little energy: not at all 5. Poor appetite or overeating: not at all 6. Feeling bad about yourself - or that you are a failure or have let yourself or your family down: not at all 7. Trouble concentrating on things, such as reading the newspaper or watching television: not at all 8. Moving or speaking so slowly that other people could have noticed. Or the opposite - being so fidgety or restless that you have been moving around a lot more than usual: not at all 9. Thoughts that you would be better off or of hurting yourself in some way: not at all Total score: 0 Depression Screening Interpretation: Negative Depression Screening Done: Yes 16870 - PHQ-9 Billing: Yes Source: Developed by Drs. Robb Mccurdy, Quyen Jarquin, Alan Freeman and colleagues, with an educational jennifer from [employer]. Thrive Questionnaire Date Thrive assessed: 03/17/24 I am a: Patient What is your living situation today?: I have a steady place to live Within the past 12 months, did the food you bought not last and you didn't have the money to get more?: Never true Within the past 12 months, did you worry whether your food would run out before you got money to buy more?: Never true Do you have trouble paying for medicines?: No Do you have trouble getting transportation to medical appointments?: No Do you have trouble paying your heating and electricity bill?: No Do you have trouble taking care of your child, family member or friend?: No Do you have trouble with day-to-day activities such as bathing, preparing meals, shopping, managing finances, etc.?: No Are you currently unemployed and looking for a job?: No Are you interested in more education?: No Please select the resources that you would like help with: None THRIVE Score: 0 AUDIT C Alcohol Use Questionnaire (AUDIT-C) 1. How often do you have a drink containing alcohol?: Never 3. How often do you have six or more drinks on one occasion?: Never Total Score: 0 MELITON-7 AMB Questionnaire MELITON-7 Date MELITON - 7 assessed: 03/17/24 Feeling nervous, anxious, or on edge: 0 = Not at all Not being able to stop or control worryin = Not at all Worrying too much about different things: 0 = Not at all Trouble relaxin = Not at all Being so restless that it is hard to sit still: 0 = Not at all Becoming easily annoyed or irritable: 0 = Not at all Feeling afraid as if something awful might happen: 0 = Not at all Total MELITON-7 score (0-4 normal; 5-9 mild; 10-14 moderate; 15-21 severe): 0 Source: Developed by Drs. Robb Mccurdy, Quyen Jarquin, Alan Freeman and colleagues, with an educational jennifer from [employer]. MELITON-7 Assessment Billing MELITON-7 Assessment Tool: MELITON-7 Assessment [id number] Review of Systems Const Denies headache(s) Eyes Denies loss of vision ENT Denies vertigo, Denies dizziness, Denies headache(s) and Denies sore throat Card Denies chest pain, Denies leg edema and Denies lightheadedness Resp Denies cough, Denies hemoptysis and Denies wheezing GI Denies abdominal pain, Denies melena, Denies constipation, Denies diarrhea and Denies vomiting Denies dysuria, Denies urinary frequency and Denies urinary urgency Musc Denies arthralgias, Denies joint swelling, Denies numbness and Denies tingling Neuro Denies Abnormal speech present, Denies behavioral changes, Denies vertigo, Denies dizziness, Denies headache(s), Denies loss of vision, Denies memory loss, Denies numbness and Denies tingling Psych Denies anxiety, Denies behavioral changes, Denies depression, Denies memory loss and Denies panic attacks Cortes/Lymph Denies easy bleeding and Denies easy bruising Aller/Immun Denies wheezing Physical exam (Primary Care) Vital Signs: Last Vital Signs Pulse 53 03/17/24 08:42 BP 116/62 03/17/24 08:42 Pulse Ox 97 03/17/24 08:42 Oxygen Delivery Method Room Air 03/17/24 08:42 BMI result Body Mass Index 28.5 Tobacco/Smoking Status: Tobacco use Status Tobacco use date assessed 03/17/24 03/17/24 08:50 Patient Tobacco Use Status Never used Tobacco 03/17/24 08:50 e-Cigarette/Vaping Use Never Used 03/17/24 08:50 PHQ-9: PHQ-9 Score PHQ-9: Total score 0 03/17/24 08:50 Depression Screening Interpretation: Negative Thrive Assessment: Date of Thrive Assessment Date Thrive assessed 03/17/24 03/17/24 08:50 Const General: healthy appearing, no acute distress, alert and awake Nutritional Appearance: well nourished Orientation/consciousness: oriented to person, oriented to place and oriented to time HENMT Ears: TM's normal bilaterally General nose exam: Normal nasal mucous membranes and turbinates present Eyes Conjunctivae: conjunctivae normal Sclerae: sclerae normal Pupils: Equal, round and reactive pupils present Neck Neck: Yes no lymphadenopathy and Yes no JVD Thyroid: Thyroid normal Carotids: no bruits Resp Effort & Inspection: normal respiratory effort and not tachypneic Auscultation: no crackles, no rales, no rhonchi and no wheezes Cardio Rate: regular rate Rhythm: regular rhythm Heart sounds: no murmurs and normal S1 and S2 GI Palpation (GI): Soft to palpation, nontender, no hepatomegaly and no splenomegaly Auscultation: normal bowel sounds Skin General skin exam: no rashes or lesions noted and dry skin Neuro General: oriented to person, oriented to place and oriented to time Cranial nerves: Yes Equal, round and reactive pupils present Speech: No Abnormal speech present Gait exam (Neuro): Normal gait present Motor exam (neuro): no tremor noted Extrem Right upper extremity: full ROM Left upper extremity: full ROM Right lower extremity: full ROM; no edema Left lower extremity: full ROM; no edema Psych Mental Status: mental status grossly normal Speech and movement: Normal speech and movement present Affect: normal affect Attitude: cooperative Thought process: Normal thought process present Assessment and Plan Assessment & Plan (1) HTN (hypertension): Code(s): I10 - Essential (primary) hypertension Qualifiers: Hypertension type: primary hypertension Qualified Code(s): I10 - Essential (primary) hypertension Plan: Patient's blood pressure acceptable today in office. Will continue his current dose of 1 Toprol with goal blood pressure be below 140/90 (2) HLD (hyperlipidemia): Code(s): E78.5 - Hyperlipidemia, unspecified Qualifiers: Hyperlipidemia type: mixed hyperlipidemia Qualified Code(s): E78.2 - Mixed hyperlipidemia Plan: Patient's most recent lipid panel showing goodcontrol of his total cholesterol and LDL. Had side effects to atorvastatin. Continues on lovastatin 40 mg. Optimal LDL to be below 70. (3) PAF (paroxysmal atrial fibrillation): Code(s): I48.0 - Paroxysmal atrial fibrillation Plan: To follow cardiology, continues on Eliquis 5 mg b.i.d. without any overt signs of bleeding. Otherwise denies any chest discomfort or palpitations. (4) Fatty liver disease, nonalcoholic: Code(s): K76.0 - Fatty (change of) liver, not elsewhere classified Plan: Noted elevations in liver enzymes likely secondary to his fatty liver disease. Liver enzymes have normalized. Continues on statin therapy (5) Elevated liver enzymes: Code(s): R74.8 - Abnormal levels of other serum enzymes Plan: As above- could be related to Plavix and statin therapy. Will continue to follow. (6) Stented coronary artery: Code(s): Z95.5 - Presence of coronary angioplasty implant and graft Plan: Has drug-eluting stent in the LAD. Will continue to follow lipid panel with goal LDL to be optimally below 70. Orders: Orders Lipid Panel 03/17/24 E78.2 - Mixed hyperlipidemia Complete Blood Count no Diff 03/17/24 Z95.5 - Presence of coronary angioplasty implant and graft Comprehensive Maria Stein. Panel Fast 03/17/24 I10 - Essential (primary) hypertension Patient Instructions: Goal: LDL to remain below 70 Barrier: Adherence to healthy eating habits and physical activity Coding Level of Care Code Est Pt Level 4 (58993) Complex EM visit Add On [id number] Diagnoses Primary hypertension I10 Hypertension type: primary hypertension Mixed hyperlipidemia E78.2 Hyperlipidemia type: mixed hyperlipidemia PAF (paroxysmal atrial fibrillation) I48.0 Fatty liver disease, nonalcoholic K76.0 Elevated liver enzymes R74.8 Stented coronary artery Z95.5 Additional Codes MELITON-7 Assessment Billing - MELITON-7 Assessment Tool: MELITON-7 Assessment [id number] ([id number])
== END 2024-03-17 09:11 | disposition home or self-care (01) ==
PROVIDERS: PCP Physician Assistant; Visit Provider Physician Assistant
DX: I10 Essential (primary) hypertension (principal); E78.2 Mixed hyperlipidemia; I48.0 Paroxysmal atrial fibrillation; K76.0 Fatty (change of) liver, not elsewhere classified; R74.8 Abnormal levels of other serum enzymes; Z95.5 Presence of coronary angioplasty implant and graft
CPT/HCPCS: 99214; G2211

== ENCOUNTER 2024-03-31 14:36 | Outpatient (AMB) | payer MEDICARE, SELFPAY ==
[2024-03-31 14:38] VITALS: BP 120/64; PULSE 57; BMI 28.0
--- NOTE | 2024-03-31 14:38 | MHC.OFFVIS ---
Vital Signs 03/31/24 14:38 Height 6 ft Weight 206 lb 5.643 oz BMI 28.0 BP 120/64 Blood Pressure Location Lt brachial Position Sitting Pulse 57 Pulse Source Pulse Oximeter Intake Visit Reasons: 4 mth f/up Archeologist Classical Required: No Accompanied by: Self / Same As Patient Allergies adhesive tape [ADHESIVE TAPE] Allergy (Intermediate, Verified 11/19/23 08:38) HIVES Penicillins [PENICILLINS] Allergy (Unknown, Verified 11/19/23 08:38) UNKNOWN REACTION-CHILDHOOD ALLERGY atorvastatin Adverse Reaction (Intermediate, Verified 12/24/23 13:55) Altered Mood heart monitor electrodes Allergy (Intermediate, Uncoded 09/17/23 09:22) Hives (if on for extended time frame) Medication List - Last Reconciled 03/31/24 by Mani Lowe MD apixaban (Eliquis) 5 mg PO BID clopidogrel 75 mg PO DAILY lovastatin 40 mg PO DAILY 90 days metoprolol succinate ER 50 mg PO DAILY HPI Comments Details: Yomi returns for follow-up of atrial fibrillation as well as coronary artery disease. In 2015, he underwent THOMAS/cardioversion. In that regard, he has been fairly stable for years. He is maintained on metoprolol and Eliquis. During last visit, he was complaining of some exertional throat tightness. Stress test unremarkable but it felt like an anginal equivalent and hence he underwent cardiac catheterization with LAD stenting. After that, it is apparently much better and he no longer gets that neck symptom. Otherwise, he feels quite good. He is concerned about some bruising spots that appear which could be from a combination of Eliquis/Plavix. Nothing obvious at this time. [facility] Medical History (Updated 03/31/24 @ 14:50 by Mani Lowe MD) Eustachian tube dysfunction Anticoagulated Ascending aorta dilatation History of cardioversion Polyarthritis Elevated cholesterol HTN (hypertension) Atherosclerotic cardiovascular disease Sinus bradycardia PAF (paroxysmal atrial fibrillation) Surgical History History of left inguinal hernia (~11/27/22) Hx of cardiac catheterization History of colonoscopy (02/24/09) History of hemorrhoidectomy (04/05/19) History of right inguinal hernia repair (03/05/12) History of left inguinal hernia repair (09/04/11) History of umbilical hernia repair Family History Father CHF (congestive heart failure) Mother Hypertension Osteoarthritis Social History Housing: House Are you a primary senior care assistant to a significant other at home: No Do you presently have visiting nurse or other home services: No Alcohol intake: current Alcohol intake frequency: a few times a week Alcohol type: beer Patient Tobacco Use Status: Never used Tobacco e-Cigarette/Vaping Use: Never Used Second Hand Smoke Exposure: Yes service: Yes Current occupational status: retired Cognitive needs: Yes Hearing needs: No Vision needs: No Review of Systems Const Denies chills, Denies fatigue, Denies fever(s), Denies frequent falls, Denies weakness, Denies weight gain and Denies weight loss ENT Denies dizziness Card Denies chest pain, Denies leg edema, Denies lightheadedness, Denies palpitations, Denies dyspnea and Denies dyspnea on exertion Resp Denies cough, Denies dyspnea and Denies dyspnea on exertion GI Denies hematochezia Musc Denies abnormal gait, Denies muscle weakness, Denies numbness, Denies radiating pain into limb and Denies tingling Neuro Denies abnormal gait, Denies dizziness, Denies frequent falls, Denies numbness, Denies tingling and Denies weakness Endo Denies fatigue and Denies palpitations Physical Exam Vital Signs: Last Vital Signs Pulse 57 03/31/24 14:38 BP 120/64 03/31/24 14:38 BMI result Body Mass Index 28.0 Const General: comfortable and no acute distress Orientation/consciousness: patient oriented x3 HEENT Other: Unremarkable Head: Yes normal to inspection Neck Neck: Yes normal visual inspection Chest Chest palpation & inspection: normal inspection of the chest Resp Auscultation: clear to auscultation bilaterally Cardio Palpation: normal PMI Heart sounds: S1 normal heart sound present, S2 normal heart sound present, no gallops, no murmurs and no rubs GI Palpation (GI): Soft to palpation Back/Spine/Pelvis Other: unremarkable Skin General skin exam: no rashes or lesions noted Neuro General: patient oriented x3 Extrem General: Yes normal to inspection Psych Mental Status: mental status grossly normal Assessment & Plan Assessment & Plan (1) Atherosclerotic cardiovascular disease: Code(s): I25.10 - Atherosclerotic heart disease of [place] coronary artery without angina pectoris Category: Medical Plan: Cardiac catheterization data reviewed. 80% mid LAD lesion status post PCI. Otherwise, intermediate grade lesions in the proximal and distal LAD. No significant findings and left main, circumflex or RCA. Continue Plavix for 1 year from time of stenting but as he is complaining of bruising we may be able to stop it after that. No anginal symptoms. Remains on statins. LDL levels are in the 60s, 70s, 80s. (2) PAF (paroxysmal atrial fibrillation): Code(s): I48.0 - Paroxysmal atrial fibrillation Category: Medical Plan: Continue beta-blockers. Continue anticoagulation. Remote history of abnormal LFTs with ? Multaq (3) Sinus bradycardia: Code(s): R00.1 - Bradycardia, unspecified Category: Medical Plan: No specific symptoms. Hence can continue beta-blockers. (4) Ascending aorta dilatation: Code(s): I77.810 - Thoracic aortic ectasia Category: Medical Plan: In the most recent echocardiogram, ascending aortic size 4.2 cm. Recheck before next visit. Orders: Orders CA echo transthoracic complete 6 Months I77.810 - Thoracic aortic ectasia Coding Level of Care Code Est Pt Level 4 (85751) Diagnoses Atherosclerotic cardiovascular disease I25.10 PAF (paroxysmal atrial fibrillation) I48.0 Sinus bradycardia R00.1 Ascending aorta dilatation I77.810
== END 2024-03-31 14:57 | disposition home or self-care (01) ==
PROVIDERS: PCP Physician Assistant; Visit Provider Internal Medicine
DX: I25.10 Atherosclerotic heart disease of native coronary artery without angina pectoris (principal); I48.0 Paroxysmal atrial fibrillation; R00.1 Bradycardia, unspecified; I77.810 Thoracic aortic ectasia
CPT/HCPCS: 99214

== ENCOUNTER → 2024-03-31 14:36 | Outpatient (BNVA) | payer MEDICARE, SELFPAY | PROVIDERS: PCP Physician Assistant; Visit Provider Internal Medicine | DX: I48.0 Paroxysmal atrial fibrillation (principal); I25.10 Atherosclerotic heart disease of native coronary artery without angina pectoris; I10 Essential (primary) hypertension; R00.1 Bradycardia, unspecified; I77.810 Thoracic aortic ectasia; Z79.01 Long term (current) use of anticoagulants | CPT/HCPCS: 99212 ==

== ENCOUNTER 2024-08-02 07:40 | Emergency (ER) | payer MEDICARE, SELFPAY ==
--- NOTE | 2024-08-02 | ECG_ITS ---
Test Reason : afib Blood Pressure : / mmHG Vent. Rate : 072 BPM Atrial Rate : 072 BPM P-R Int : 208 ms QRS Dur : 142 ms QT Int : 374 ms P-R-T Axes : 048 077 033 degrees QTc Int : 409 ms Normal sinus rhythm Right bundle branch block Abnormal ECG When compared with ECG of 02-AUG-2024 07:42, Sinus rhythm has replaced Atrial fibrillation Vent. rate has decreased BY 54 BPM Referred By: Cristóbal Gibson Electronically Signed By:JUANCARLOS FRANZ
--- NOTE | 2024-08-02 07:44 | ECG_ITS ---
Test Reason : ?afib Blood Pressure : / mmHG Vent. Rate : 126 BPM Atrial Rate : 000 BPM P-R Int : 000 ms QRS Dur : 134 ms QT Int : 284 ms P-R-T Axes : 000 095 006 degrees QTc Int : 411 ms Atrial fibrillation with rapid ventricular response with premature ventricular or aberrantly conducted complexes Right bundle branch block Abnormal ECG When compared with ECG of 19-AUG-2016 11:49, Atrial fibrillation has replaced Sinus rhythm Vent. rate has increased BY 80 BPM Right bundle branch block is now Present Referred By: Generic ED Physician Electronically Signed By:JUANCARLOS FRANZ
[2024-08-02 07:54] VITALS: BP 144/84; PULSE 73; RESP 24; TEMP 36.8; O2SAT 97; BMI 27.0
--- NOTE | 2024-08-02 08:02 | ED_ITS ---
HPI - Arrhythmia/Palpitations General Chief Complaint: Arrhythmia/Palpitations Stated Complaint: AFIB? Time Seen by Provider: 08/02/24 07:55 Source: patient Mode of arrival: ambulatory Limitations: no limitations History of Present Illness ED Provider: Dr. Cristóbal Gibson HPI narrative: 74-year-old male with a history of hypertension, hyperlipidemia, bradycardia, paroxysmal atrial fibrillation on Eliquis, dilated ascending aorta, coronary artery disease status post LAD stent on Plavix who presents emergency department for evaluation of bilateral jaw pain throat tightness and lightheadedness. Patient states he has a history of paroxysmal atrial fibrillation for 8 years in his had a proximally 3-4 episodes of atrial fibrillation. He states that whenever he goes into atrial fibrillation he has similar symptoms to what he had today. He states that he woke up 4 times throughout the night to urinate which is unusual for him. He denied dysuria. He states that around 04:00 hours he developed bilateral jaw pain, squeezing sensation of his neck which was 8/10. He states that his pulse was 60-120 beats per minute. His symptoms persisted so he came to the emergency department for evaluation. He denied nausea, vomiting or diaphoresis. He denied chest pain or shortness of breath. He states he is compliant with his medications. Patient is followed by our sap security architect, Dr. Lowe and I did review patient's cardiology notes. Patient had a mid LAD 80% lesion treated with ISAAC stent 11/05/2023 and echocardiogram 10/29/2022 with EF of 60-65%. Related Data Previous Rx's ?Medication ?Instructions ?Recorded apixaban 5 mg tablet (Eliquis) 5 mg PO BID #180 tabs 11/04/23 metoprolol succinate 50 mg 50 mg PO DAILY #90 tabs 11/09/23 tablet,extended release 24 hr clopidogrel 75 mg tablet 75 mg PO DAILY #90 tabs 11/19/23 lovastatin 40 mg tablet 40 mg PO DAILY 90 days #90 tabs 12/23/23 Allergies Allergy/AdvReac Type Severity Reaction Status Date / Time adhesive tape [ADHESIVE TAPE] Allergy Intermediate HIVES Verified 08/02/24 07:55 Penicillins [PENICILLINS] Allergy Unknown UNKNOWN Verified 08/02/24 07:55 REACTION-CHILDHOOD ALLERGY atorvastatin AdvReac Intermediate Altered Verified 08/02/24 07:55 Mood heart monitor electrodes Allergy Intermediate Hives (if Uncoded 08/02/24 07:55 on for extended time frame) [facility] Past Medical History [facility] Narrative: Social history: Patient is . His is a nurse in his here in the emergency department with the patient. Patient denies tobacco use. He states he drinks 1-2 beers per day. He denies drug use. Medical History (Updated 08/02/24 @ 10:26 by Cristóbal Gibson MD) Eustachian tube dysfunction Anticoagulated Ascending aorta dilatation History of cardioversion Polyarthritis Elevated cholesterol HTN (hypertension) Atherosclerotic cardiovascular disease Sinus bradycardia PAF (paroxysmal atrial fibrillation) Surgical History History of left inguinal hernia (~11/27/22) Hx of cardiac catheterization History of colonoscopy (02/24/09) History of hemorrhoidectomy (04/05/19) History of right inguinal hernia repair (03/05/12) History of left inguinal hernia repair (09/04/11) History of umbilical hernia repair Family History Family History Father CHF (congestive heart failure) Mother Hypertension Osteoarthritis Social History Social History Housing: House Are you a primary palliative care nurse practitioner to a significant other at home: No Do you presently have visiting nurse or other home services: No Alcohol intake: current Alcohol intake frequency: a few times a week Alcohol type: beer Patient Tobacco Use Status: Never used Tobacco Smoked in Last 30 Days: No e-Cigarette/Vaping Use: Never Used Second Hand Smoke Exposure: Yes Use of substances other than those prescribed or required for medical reasons: No Advance Directives: No Advance Directives Information Provided: Yes service: Yes Current occupational status: retired Cognitive needs: Yes Hearing needs: No Vision needs: No Physical Exam 2 Vital Signs: Vital Signs: Last Vital Signs Temp 98.2 F 08/02/24 07:54 Pulse 54 08/02/24 08:56 Resp 20 08/02/24 08:56 BP 119/54 L 08/02/24 08:56 Pulse Ox 95 08/02/24 08:56 O2 Del Method Room Air 08/02/24 08:56 BMI result Body Mass Index 27.0 Medical Decision Making Medical Decision Making MDM Narrative: 74-year-old male with a history of hypertension, hyperlipidemia, bradycardia, paroxysmal atrial fibrillation on Eliquis, dilated ascending aorta, coronary artery disease status post LAD stent on Plavix who presents emergency department for evaluation of bilateral jaw pain throat tightness and lightheadedness, 8/10, starting at 04:00 hours-similar pain in the past when he has gone into atrial fibrillation. Patient was concerned that the symptoms were persisting so came to emergency department for evaluation. He also noted 4 episodes of urinary frequency overnight but has had no dysuria. Differential diagnosis: ?Includes but is not limited to myocardial infarction, myocardial ischemia, myocardial injury, atrial fibrillation, anemia, electrolyte abnormalities, urinary tract infection Course: 10:20 The patient's laboratory evaluation was interpreted by me as follows: CBC was normal. CMP was normal except for an elevated chloride of 111 and an elevated glucose of 120. The patient had over 4 hours of chest pain prior to coming to the emergency department and his high sensitive troponin I was 4.3 which is reassuring. At this time I think the patient's symptoms are consistent with his atrial fibrillation. Shortly after getting his 1st EKG the patient's symptoms resolved and repeat EKG showed that he was in a sinus rhythm. Patient was advised to continue taking his medications as prescribed and to follow-up with his PCP and his sap security architect for further evaluation. Admission/Observation Consideration of admission/observation: Escalation of care including admission/observation considered (Yes) Lab Data [facility] Lab Attestation statement: I reviewed the patient's lab results. 08/02/24 08:04 08/02/24 08:04 Labs: Lab Results 08/02/24 Range/Units 08:04 WBC 6.4 (4.8-10.8) X10*3/uL RBC 4.87 (4.60-5.80) X10*6/uL Hgb 16.1 (14.0-18.0) g/dl Hct 45.6 (42.0-52.0) % MCV 93.6 (80.0-98.0) fL MCH 33.1 H (27.0-33.0) pg MCHC 35.3 (31.0-36.0) g/dl RDW 12.2 (11.0-16.0) % Plt Count 268 (160-400) X10*3/uL MPV 9.6 (9.4-12.4) fL Immature Gran % (Auto) 0.3 (0.0-0.4) % Neut % (Auto) 73.6 H (45-73) % Lymph % (Auto) 15.0 L (20-40) % Barren % (Auto) 7.8 (2-11) % Eos % (Auto) 2.2 (0-4) % Baso % (Auto) 1.1 (0-2) % Lymph # (Auto) 1.0 L (1.2-4.9) X10*3/uL Barren # (Auto) 0.5 (0.1-1.2) X10*3/uL Eos # (Auto) 0.1 (0.0-0.4) X10*3/uL Baso # (Auto) 0.1 (0.0-0.2) X10*3/uL Abs Immat Gran (auto) 0.02 (0.00-0.03) X10*3/uL Absolute Neuts (auto) 4.7 (2.0-8.3) x10*3/uL Absolute Nucleated RBC 0.000 (0.0-0.012) X10*3/uL Nucleated RBC % (auto) 0.0 (0.0-0.2) /100WBC Sodium 143 (135-145) mmol/L Potassium 4.5 (3.3-5.1) mmol/L Chloride 111 H (96-108) mmol/L Carbon Dioxide 24 (22-29) mmol/L Anion Gap 13 (12-20) BUN 9 (9-16) mg/dL Creatinine 1.10 (0.5-1.4) mg/dL Estim Creat Clear Calc 66.5 Estimated GFR > 60 Random Glucose 120 H (60-115) mg/dL Calcium 9.8 (8.4-10.2) mg/dL Troponin I High Sens 4.3 (<3.5-35.0) ng/L Independent Interpretation I performed an independent interpretation of an: EKG Interpretation: My independent interpretation patient's 12 EKG at 07:42 hours is as follows: Atrial fibrillation with a ventricular rate of 126, prolonged QRS of 134 milliseconds, normal QTC of 411 milliseconds, right bundle-branch block, no ST segment elevation, inverted T-wave lead 3 and V1, no ST segment elevation, ST segment depression consistent with right bundle-branch block. My independent interpretation the patient's 12 EKG done at 07:54 hours is as follows: Normal sinus rhythm with a first-degree AV block with a rate of 72 and a RI interval of 208 milliseconds, prolonged QRS of 142 milliseconds, right bundle-branch block, no ST segment elevation, no ST segment depression, inverted Q-wave remains in V1 but has normalized in lead 3. Independent Historian Clinical information obtained from an independent historian. History obtained from or confirmed by: Spouse External Record Review External record reviewed: Office record Chronic Conditions Patient?s care impacted by: Hypertension (And hyperlipidemia) and Other (Paroxysmal atrial fibrillator, coronary disease) Discharge Plan Discharge Clinical Impression: Atrial fibrillation with RVR Patient Disposition: Home, Self-Care Additional Instructions: When you initially arrived in the emergency department you were in atrial fibrillation with a rate of 126 beats per minute You spontaneously converted to a normal sinus rhythm and at the time of discharge you are still in a normal sinus rhythm which is reassuring. Your blood work was unremarkable. Your high sensitive troponin I was 4.2 which is below the normal range of 30. This is reassuring suggesting that your neck and jaw pain is not caused by heart damage/heart attack. Continue taking medications as prescribed by your sap security architect and your primary care doctor. Follow-up with your doctor in 2 days. Please return to the emergency department if your symptoms get worse or if you develop any symptoms that are concerning to you. Prescriptions: No Action Eliquis 5 mg tablet 5 mg PO BID Qty: 180 5RF metoprolol succinate 50 mg tablet extended release 24 hr 50 mg PO DAILY Qty: 90 3RF lovastatin 40 mg tablet 40 mg PO DAILY 90 Days Qty: 90 3RF Rx Instructions: stop atorvastatin and go back on Lovastatin clopidogrel 75 mg tablet 75 mg PO DAILY Qty: 90 3RF Print Language: Hebrew
[2024-08-02 08:07] LABS: MANUAL DIFF FLAG NO
[2024-08-02 08:08] LABS: Basophils Absolute Auto 0.1 X10*3/uL (0.0-0.2); Basophils Percent Auto 1.1 % (0-2); Eosinophils Absolute Auto 0.1 X10*3/uL (0.0-0.4); Eosinophils Percent Auto 2.2 % (0-4); Hematocrit 45.6 % (42.0-52.0); Hemoglobin 16.1 g/dl (14.0-18.0); Imm Gran Abs Auto 0.02 X10*3/uL (0.00-0.03); Imm Gran Pct Auto 0.3 % (0.0-0.4); Mean Corpuscular HGB Conc 35.3 g/dl (31.0-36.0); Mean Corpuscular Hemoglobin 33.1 pg (27.0-33.0); Mean Corpuscular Volume 93.6 fL (80.0-98.0); Mean Platelet Volume 9.6 fL (9.4-12.4); Monocytes Absolute Auto 0.5 X10*3/uL (0.1-1.2); Monocytes Percent Auto 7.8 % (2-11); Neutrophils Absolute Auto 4.7 x10*3/uL (2.0-8.3); Neutrophils Percent Auto 73.6 % (45-73); Platelet Count 268 X10*3/uL (160-400); Red Blood Count 4.87 X10*6/uL (4.60-5.80); Red Cell Distribution Width 12.2 % (11.0-16.0); White Blood Count 6.4 X10*3/uL (4.8-10.8)
[2024-08-02 08:33] LABS: Anion Gap 13 (12-20); Blood Urea Nitrogen 9 mg/dL (9-16); Calcium 9.8 mg/dL (8.4-10.2); Carbon Dioxide 24 mmol/L (22-29); Chloride 111 mmol/L (96-108); Creatinine Clr Calc Pharmacy 66.5; Estimated Glomerular Filt Rate > 60; Glucose Random 120 mg/dL (60-115); Potassium 4.5 mmol/L (3.3-5.1); Sodium 143 mmol/L (135-145)
[2024-08-02 08:41] LABS: Troponin-I High Sensitivity 4.3 ng/L (<3.5-35.0)
[2024-08-02 08:56] VITALS: BP 119/54; PULSE 54; RESP 20; O2SAT 95
--- NOTE | 2024-08-02 10:07 | PC.NURSE ---
patient HR remains NS/sinus bradycardic. patient reports symptoms have resolved. no chest pain. pending re eval from provider.
[2024-08-02 10:33] VITALS: BP 133/62; PULSE 52; RESP 16; TEMP 36.8; O2SAT 95
== END 2024-08-02 10:34 | disposition home or self-care (01) ==
PROVIDERS: Emergency Provider Emergency Medicine Emergency Medical Services; PCP Physician Assistant
DX: I48.0 Paroxysmal atrial fibrillation (principal); I49.9 Cardiac arrhythmia, unspecified; R00.2 Palpitations; Z79.01 Long term (current) use of anticoagulants; Z79.899 Other long term (current) drug therapy
CPT/HCPCS: 36415; 80048; 84484; 85025; 93005; 99283; 99284

== ENCOUNTER → 2024-08-02 07:44 | Outpatient (BNV) | payer MEDICARE, SELFPAY | PROVIDERS: Emergency Provider Emergency Medicine Emergency Medical Services; PCP Physician Assistant; Visit Provider Internal Medicine | DX: R94.31 Abnormal electrocardiogram [ECG] [EKG] (principal) | CPT/HCPCS: 93010 ==

== ENCOUNTER 2024-09-12 07:26 | Outpatient (REF) | payer MEDICARE, SELFPAY ==
[2024-09-12 10:10] LABS: Hematocrit 44.8 % (42.0-52.0); Hemoglobin 15.7 g/dl (14.0-18.0); Mean Corpuscular Hemoglobin 32.6 pg (27.0-33.0); Mean Corpuscular Volume 93.1 fL (80.0-98.0); Platelet Count 264 X10*3/uL (160-400); Red Blood Count 4.81 X10*6/uL (4.60-5.80); White Blood Count 6.3 X10*3/uL (4.8-10.8)
[2024-09-12 10:46] LABS: Alanine Aminotransferase 62 U/L (0-40); Albumin Level 4.3 g/dL (3.5-5.0); Alkaline Phosphatase 68 U/L (39-117); Anion Gap 11 (12-20); Aspartate Amino Transferase 47 U/L (5-37); Bilirubin Total 0.8 mg/dL (0.0-1.0); Blood Urea Nitrogen 10 mg/dL (9-16); Calcium 9.3 mg/dL (8.4-10.2); Carbon Dioxide 28 mmol/L (22-29); Chloride 105 mmol/L (96-108); Cholesterol 147 mg/dL (<200); Estimated Glomerular Filt Rate > 60; Glucose Fasting 97 mg/dL (60-99); HDL Cholesterol 44 mg/dL (>40); LDL Cholesterol Calculated 80 mg/dL (<100); Potassium 4.3 mmol/L (3.3-5.1); Sodium 140 mmol/L (135-145); Total Protein 7.3 g/dL (6.5-8.0); Triglycerides 119 mg/dL (<150)
== END 2024-09-12 07:27 | disposition home or self-care (01) ==
LOC: HO.HMGCLDS 07:26
PROVIDERS: PCP Physician Assistant; Visit Provider Physician Assistant
DX: Z95.5 Presence of coronary angioplasty implant and graft (principal); I10 Essential (primary) hypertension; E78.2 Mixed hyperlipidemia
CPT/HCPCS: 36415; 80053; 80061; 85027

== ENCOUNTER 2024-09-20 08:35 | Outpatient (AMB) | payer MEDICARE, SELFPAY ==
[2024-09-20 08:55] VITALS: BP 132/74; PULSE 50; O2SAT 97; BMI 29.1
--- NOTE | 2024-09-20 08:55 | A.OFFPC_ITS ---
Vital Signs 09/20/24 08:55 Height 6 ft Weight 214 lb 4 oz BMI 29.1 BP 132/74 Blood Pressure Location Lt brachial Position Sitting Pulse 50 Pulse Source Pulse Oximeter Pulse Oximetry (%) 97 Oxygen Delivery Method Room Air Intake Visit Reasons: f/u CAD/ HTN Financial Institution Treasurer Required: No Accompanied by: Self / Same As Patient Allergies adhesive tape [ADHESIVE TAPE] Allergy (Intermediate, Verified 09/20/24 09:04) HIVES Penicillins [PENICILLINS] Allergy (Unknown, Verified 09/20/24 09:04) UNKNOWN REACTION-CHILDHOOD ALLERGY atorvastatin Adverse Reaction (Intermediate, Verified 09/20/24 09:04) Altered Mood heart monitor electrodes Allergy (Intermediate, Uncoded 09/20/24 09:04) Hives (if on for extended time frame) Medication List - Last Reconciled 09/20/24 by Dexter Patricia PA-C apixaban (Eliquis) 5 mg PO BID clopidogrel 75 mg PO DAILY lovastatin 40 mg PO DAILY 90 days metoprolol succinate ER 50 mg PO DAILY Tobacco use date assessed: 09/20/24 Fall risk assessment: No Falls in past year Last assessed Fall Risk: 09/20/24 Dental Screening Dental Screen Date: 09/20/24 Did you have a dental visit in the last 12 months?: Yes Did you have a dental problem in the last 6 months where you did not have access to dental care?: No Was dental information given to patient?: Patient has dentist HPI f/u CAD/ HTN HPI Details Patient is a 74-year-old male here today for a f/u appointment.? Patient has a past medical history significant for polyarthritis, paroxysmal AFib, hypertension. concerns--> reports having some postnasal drip over last several months. Does have chronic history of ear congestion as well and has seen many different ENTs. Has not tried any anti-histamine therapy . .. Paroxysmal AFIB: Is followed by [facility]. No overt bleeding on eliquis.? He continues to be in p-AFib any symptoms.? Recent ECHO unremarkable. Did have an ER visit in July for acute AFib symptoms though when in the ER he converted to normal rhythm spontaneously. Coronary artery disease: Due to reports exertional throat tightness patient sent for nuclear stress test which was normal. Recently underwent a cardiac catheterization in that showed 80% stenosis in the LAD, drug-eluting stent was placed. .. Elevated liver enzymes: Have normalized , Noted slightly elevated liver enzymes likely secondary to is fatty liver disease. . Osteoarthritis:? Patient does report taking an ibuprofen 800 on a very limited basis.? He understands he is on anticoagulation therapy and should not be taking any NSAIDs though he only finds that ibuprofen works. Laboratory Tests 03/08/24 09/12/24 08:00 07:43 RBC 4.81 Creatinine 1.08 AST 47 H ALT 62 H Cholesterol 147 LDL Cholesterol, C alc 80 Urine Microalbumin < 5.0 [facility] Medical History (Updated 09/20/24 @ 09:13 by Dexter Patricia PA-C) Eustachian tube dysfunction Anticoagulated Ascending aorta dilatation History of cardioversion Polyarthritis Elevated cholesterol HTN (hypertension) Atherosclerotic cardiovascular disease Sinus bradycardia PAF (paroxysmal atrial fibrillation) Surgical History History of left inguinal hernia (~11/27/22) Hx of cardiac catheterization History of colonoscopy (02/24/09) History of hemorrhoidectomy (04/05/19) History of right inguinal hernia repair (03/05/12) History of left inguinal hernia repair (09/04/11) History of umbilical hernia repair Family History Father CHF (congestive heart failure) Mother Hypertension Osteoarthritis Social History Housing: House Are you a primary care aide to a significant other at home: No Do you presently have visiting nurse or other home services: No Alcohol intake: current Alcohol intake frequency: a few times a week Alcohol type: beer Patient Tobacco Use Status: Never used Tobacco e-Cigarette/Vaping Use: Never Used Second Hand Smoke Exposure: Yes service: Yes Current occupational status: retired Cognitive needs: Yes Hearing needs: No Vision needs: No Questionnaire PHQ-9 Over the last 2 weeks, how often have you been bothered by any of the following problems? 1. Little interest or pleasure in doing things: not at all 2. Feeling down, depressed, or hopeless: not at all 3. Trouble falling or staying asleep, or sleeping too much: not at all 4. Feeling tired or having little energy: not at all 5. Poor appetite or overeating: not at all 6. Feeling bad about yourself - or that you are a failure or have let yourself or your family down: not at all 7. Trouble concentrating on things, such as reading the newspaper or watching television: not at all 8. Moving or speaking so slowly that other people could have noticed. Or the opposite - being so fidgety or restless that you have been moving around a lot more than usual: not at all 9. Thoughts that you would be better off or of hurting yourself in some way: not at all Total score: 0 Depression Screening Interpretation: Negative Depression Screening Done: Yes 87147 - PHQ-9 Billing: Yes Source: Developed by Drs. Robb Mccurdy, Quyen Jarquin, Alan Freeman and colleagues, with an educational jennifer from [employer]. Thrive Questionnaire Date Thrive assessed: 09/20/24 I am a: Patient What is your living situation today?: I have a steady place to live Within the past 12 months, did the food you bought not last and you didn't have the money to get more?: Never true Within the past 12 months, did you worry whether your food would run out before you got money to buy more?: Never true Do you have trouble paying for medicines?: No Do you have trouble getting transportation to medical appointments?: No Do you have trouble paying your heating and electricity bill?: No Do you have trouble taking care of your child, family member or friend?: No Do you have trouble with day-to-day activities such as bathing, preparing meals, shopping, managing finances, etc.?: No Are you currently unemployed and looking for a job?: No Are you interested in more education?: No Please select the resources that you would like help with: None Currently or been in a relationship where the following occur: No concerns reported THRIVE Score: 0 AUDIT C Alcohol Use Questionnaire (AUDIT-C) 2. How many drinks containing alcohol do you have on a typical day when you are drinking?: 1 or 2 3. How often do you have six or more drinks on one occasion?: Never Total Score: 0 MELITON-7 AMB Questionnaire MELITON-7 Date MELITON - 7 assessed: 09/20/24 Feeling nervous, anxious, or on edge: 0 = Not at all Not being able to stop or control worryin = Not at all Worrying too much about different things: 0 = Not at all Trouble relaxin = Not at all Being so restless that it is hard to sit still: 0 = Not at all Becoming easily annoyed or irritable: 0 = Not at all Feeling afraid as if something awful might happen: 0 = Not at all Total MELITON-7 score (0-4 normal; 5-9 mild; 10-14 moderate; 15-21 severe): 0 Source: Developed by Drs. Robb Mccurdy, Quyen Jarquin, Alan Freeman and colleagues, with an educational jennifer from [employer]. MELITON-7 Assessment Billing MELITON-7 Assessment Tool: MELITON-7 Assessment 17897 Review of Systems Const Denies headache(s) Eyes Denies loss of vision ENT Details: + ear congestion Denies vertigo, Denies dizziness, Denies headache(s), Reports post nasal drip and Denies sore throat Card Denies chest pain, Denies leg edema and Denies lightheadedness Resp Denies cough, Denies hemoptysis and Denies wheezing GI Denies abdominal pain, Denies melena, Denies constipation, Denies diarrhea and Denies vomiting Denies dysuria, Denies urinary frequency and Denies urinary urgency Musc Denies arthralgias, Denies joint swelling, Denies numbness and Denies tingling Neuro Denies Abnormal speech present, Denies behavioral changes, Denies vertigo, Denies dizziness, Denies headache(s), Denies loss of vision, Denies memory loss, Denies numbness and Denies tingling Psych Denies anxiety, Denies behavioral changes, Denies depression, Denies memory loss and Denies panic attacks Cortes/Lymph Denies easy bleeding and Denies easy bruising Aller/Immun Denies wheezing Physical exam (Primary Care) Vital Signs: Last Vital Signs Pulse 50 09/20/24 08:55 BP 132/74 09/20/24 08:55 Pulse Ox 97 09/20/24 08:55 Oxygen Delivery Method Room Air 09/20/24 08:55 BMI result Body Mass Index 29.1 Tobacco/Smoking Status: Tobacco use Status Tobacco use date assessed 09/20/24 09/20/24 08:58 Patient Tobacco Use Status Never used Tobacco 09/20/24 08:58 e-Cigarette/Vaping Use Never Used 09/20/24 08:58 PHQ-9: PHQ-9 Score PHQ-9: Total score 0 09/20/24 08:58 Depression Screening Interpretation: Negative Thrive Assessment: Date of Thrive Assessment Date Thrive assessed 09/20/24 09/20/24 08:58 Currently or been in a relationship where the following occur: No concerns reported Const General: healthy appearing, no acute distress, alert and awake Nutritional Appearance: well nourished Orientation/consciousness: oriented to person, oriented to place and oriented to time HENMT Ears: TM's normal bilaterally General nose exam: Normal nasal mucous membranes and turbinates present Eyes Conjunctivae: conjunctivae normal Sclerae: sclerae normal Pupils: Equal, round and reactive pupils present Neck Neck: Yes no lymphadenopathy and Yes no JVD Thyroid: Thyroid normal Carotids: no bruits Resp Effort & Inspection: normal respiratory effort and not tachypneic Auscultation: no crackles, no rales, no rhonchi and no wheezes Cardio Rate: regular rate Rhythm: regular rhythm Heart sounds: no murmurs and normal S1 and S2 GI Palpation (GI): Soft to palpation, nontender, no hepatomegaly and no splenomegaly Auscultation: normal bowel sounds Skin General skin exam: no rashes or lesions noted and dry skin Neuro General: oriented to person, oriented to place and oriented to time Cranial nerves: Yes Equal, round and reactive pupils present Speech: No Abnormal speech present Gait exam (Neuro): Normal gait present Motor exam (neuro): no tremor noted Extrem Right upper extremity: full ROM Left upper extremity: full ROM Right lower extremity: full ROM; no edema Left lower extremity: full ROM; no edema Psych Mental Status: mental status grossly normal Speech and movement: Normal speech and movement present Affect: normal affect Attitude: cooperative Thought process: Normal thought process present Coding Level of Care Code Est Pt Level 4 (63156) Diagnoses Primary hypertension I10 Hypertension type: primary hypertension Stented coronary artery Z95.5 Mixed hyperlipidemia E78.2 Hyperlipidemia type: mixed hyperlipidemia PAF (paroxysmal atrial fibrillation) I48.0 PND (post-nasal drip) R09.82 Additional Codes MELITON-7 Assessment Billing - MELITON-7 Assessment Tool: MELITON-7 Assessment 34330 ([id number]) PHQ-9 - 81024 - PHQ-9 Billing: Yes ([id number]) Assessment & Plan Assessment & Plan (1) HTN (hypertension): Code(s): I10 - Essential (primary) hypertension Category: Medical Qualifiers: Hypertension type: primary hypertension Qualified Code(s): I10 - Essential (primary) hypertension Plan: Patient's blood pressure acceptable today in office. Will continue current dose of metoprolol. Goal blood pressures to remain below 140/90 (2) Stented coronary artery: Code(s): Z95.5 - Presence of coronary angioplasty implant and graft Category: Surgical Plan: Patient continues to follow cardiology. Continues on moderate dose that and and antiplatelet therapy with good effect. No overt signs of bleeding. Goal LDL to be optimally below 70. (3) HLD (hyperlipidemia): Code(s): E78.5 - Hyperlipidemia, unspecified Category: Medical Qualifiers: Hyperlipidemia type: mixed hyperlipidemia Qualified Code(s): E78.2 - Mixed hyperlipidemia Plan: Patient's most recent lipid panel showing fairly good control of his total cholesterol and LDL. (4) PAF (paroxysmal atrial fibrillation): Code(s): I48.0 - Paroxysmal atrial fibrillation Category: Medical Plan: Patient does report having an episode of AFib with RVR was seen at the ER recently. He otherwise denies having very frequent episodes. Continues to be rate controlled on metoprolol 50 mg extended release. (5) PND (post-nasal drip): Code(s): R09.82 - Postnasal drip Category: Medical Plan: Craig does report having chronic postnasal drip and ear congestion. Advised on anti histamine therapy and nasal spray. Did advise to have him look up Eustachian tube dysfunction and exercises he can do for this. Orders: Orders Microalbumin, Random (w Creat) Today I10 - Essential (primary) hypertension Comprehensive [place]. Panel Fast Today I10 - Essential (primary) hypertension Prostate Specific Antigen Scr Today D72.829 - Elevated white blood cell count, unspecified, Z12.5 - Encounter for screening for malignant neoplasm of prostate Complete Blood Count no Diff Today I10 - Essential (primary) hypertension Lipid Panel Today E78.2 - Mixed hyperlipidemia Medications: New azithromycin For 250 mg dose pack: take 500 mg today (day 1), then 250 mg for 4 days (days 2-5) PO 6 tabs 0RF R09.82 - Postnasal drip
== END 2024-09-20 09:25 | disposition home or self-care (01) ==
PROVIDERS: PCP Physician Assistant; Visit Provider Physician Assistant
DX: I10 Essential (primary) hypertension (principal); Z95.5 Presence of coronary angioplasty implant and graft; E78.2 Mixed hyperlipidemia; I48.0 Paroxysmal atrial fibrillation; R09.82 Postnasal drip

== ENCOUNTER → 2024-09-20 08:35 | Outpatient (BNVA) | payer MEDICARE, SELFPAY | PROVIDERS: PCP Physician Assistant; Visit Provider Physician Assistant | DX: I10 Essential (primary) hypertension (principal); E78.2 Mixed hyperlipidemia; I48.0 Paroxysmal atrial fibrillation; R09.82 Postnasal drip; Z95.5 Presence of coronary angioplasty implant and graft | CPT/HCPCS: 96127; 99212 ==

== ENCOUNTER → 2024-09-27 08:59 | Outpatient (REF) | payer MEDICARE, SELFPAY ==
--- NOTE | 2024-09-27 09:01 | CA_ITS ---
Transthoracic Echocardiogram Patient (Last, First, Middle): Yomi Duncan, Gender: Male Date of : 1950 Age: 74 Procedure Date: 09/27/2024 Procedure Type: Transthoracic Echocardiogram Location: OP Height: 185. cm Weight: 93.44 kg BSA: 2.18 m2 Heart Rate: 47 bpm BP: 162 / 80 mmHg Battery Filler: ALVAREZ Hernandez MD: Mani Lowe MD Director Of Head Start: Lars Obrien MD Symptoms: I77.810 - Thoracic aortic ectasia Study Quality: Technically Difficult ECG Rhythm: Bradycardia Conclusions: - 1. Technically limited study with off axis parasternal views 2. LV ejection fraction appears to be preserved at 55-60% with impaired relaxation filling pattern 3. Cardiac valvular Dopplers within normal limits Findings Left Ventricle The left ventricle was not well visualized. Normal left ventricular cavity size. The left ventricular systolic function is normal. The visually estimated ejection fraction is between 55-60%. Spectral Doppler is indicative of an impaired relaxation filling pattern. Right Ventricle The right ventricle was not well visualized. Atria The left atrium is normal in size. Interatrial shunt cannot be excluded. The right atrium was not well visualized. Aortic Valve The aortic valve was not well visualized. There is no aortic valve stenosis. There is no aortic valve regurgitation. Mitral Valve The mitral valve was not well visualized. There is no mitral valve regurgitation. There is no mitral valve stenosis. Pulmonic Valve The pulmonic valve was not well visualized. Tricuspid Valve The tricuspid valve was not well visualized. Tricuspid regurgitation envelope is inadequate for calculation of right ventricular systolic pressure. Great Vessels The aorta was not well visualized. The pulmonary artery was not well visualized. Venous The inferior vena cava is normal in size and collapses greater than 50% with inspiration. Pericardium/Pleural The pericardium was not well visualized. Prior Study Comparison Changes noted compared to prior study dated: 10/29/2022. technically limited study on ascending aorta was not well visualized on this study and therefore would consider alternative imaging Measurements 2D Linear Measurements LVIDd: 3.90 3.9-5.3/4.2-5.9 cm LVIDd Index: 1.79 2.4-3.2/2.2-3.1 cm/m2 LVIDs: 2.06 2.0-3.6 cm LVPWd: 1.08 0.7-1.1 cm LA Diam: 3.20 2.7-3.8/3.0-4.0 cm LAIDs Index: 1.47 1.5-2.3 cm/m2 LV Mass: 221.29 67-162/88-224 g LV Mass Index: 101.51 43-95/49-115 g/m2 LVOT Diam: 2.10 3.0+(-)1.3 cm 2D Systolic Function EF 4C: 60.80 >55% EF 2C: 59.30 >55% EF BiP: 56.90 >55% Mitral Valve MV Pk E: 0.58 MV PK A: 0.60 MV Decel Time: 382.00 E/A: 1.00 E'Lateral: 7.11 E'Medial: 4.64 E/E' Med: 12.50 E/E' Lat: 8.10 PHT: 112.00 MVA PHT: 1.96 Decel [place]: 1.52 Aortic Valve AoV Pk Cam[place]: 1.08 AoV Mn [place]: 0.79 AoV VTI: 0.25 AoV Pk Grad: 5.00 Aov Mn Grad: 3.00 HOLDEN Cont.VTI: 3.54 LVOT LVOT Pk [place]: 1.06 LVOT Mn [place]: 0.68 LVOT VTI: 0.26 LVOT Pk Grad: 4.00 LVOT Mn Grad: 2.00 LVOT Diam: 2.10 LVOT Area: 3.46 Diastolic Function MV Pk E: 0.58 MV Pk A: 0.60 E/A: 1.00 E'Medial: 4.64 E/E' Med: 12.50 E' Laterial: 7.11 E/E' Lat: 8.10 Right Ventricle TAPSE (mm): 18.50 TVS' Camilo: 9.03 Great Vessels Aorta Sinus of Valsalva: 4.10 2.0-3.5 cm Ao Asc: 4.40 2.1-3.4 cm Ao Arch: 3.80 Pulmonary Valve PV Pk Camilo: 0.77 Peak PV Grad: 2.00 Updated in Other Vendor System with Status of Final Lars Obrien MD electronically signed on 09/28/2024 5:32:29 PM with status of Final
--- OUTSIDE RECORDS SUMMARY | 2024-09-28 19:10 | XMS_ITS ---
Author Organization [facility] Address [address] [place] [address] Care Team Providers Care Cyanide Furnace Operator Name Role Phone Dexter Patricia Primary Care Provider UnavailRobb Sahu [phone] ALLERGIES Allergen (clinical drug ingredient) Drug/Non Drug Allergy documented on EMR Reaction Allergy Type Onset Date Status atorvastatin Atorvastatin altered mood Drug Allergy Active Penicillin Unknown Drug Allergy Active adhesive tape (uncoded) Unknown Allergy Active REASON FOR VISIT Patient presents today for a SCREENING COLON MEDICATIONS Medication SIG (Take, Route, Frequency, Duration) Notes Start Date End Date Status Metoprolol Succinate ER Active Lovastatin Active Eliquis 5 MG TAKE 1 TABLET BY NATALIIA TH TWICE A DAY Oral for 90 Active Clopidogrel Bisulfate 75 MG TAKE 1 TABLE T BY MOUTH EVERY DAY Oral for 90 Active PROBLEMS Problem Type ICD Code Onset Dates Problem Status W/U Status Risk SNOMED Code Notes Problem Colon cancer screening (Z12.11) Active confirmed Colon cancer screening (741603130) Problem Anticoagulant long-term use (Z79.01) Active confirmed Long-term current use of anticoagulant (901563077) Problem Encounter for other preprocedural examination (Z01.818) Active confirmed Pre-procedure evaluation check (375479800) VITAL SIGNS BMI 28.09 kg/m2 08/30/2024 Blood pressure systolic 00 mm Hg 08/30/20 24 Blood pressure diastolic 00 mm Hg 024 Height 72.5 in 08/30/2024 Weight 210 lbs 08/30/2024 Encounters Encounter Location Date Provider Diagnosis [facility] [address] [place] [address] 08/30/2024 Robb Duarte Colon cancer screeni ng Z12.11 ; Anticoagulant long-term use Z79.01 and Encounter for other preprocedural examination Z01.818 ASSESSMENTS Encounter Date Diagnosis Assessment Notes Treatment Notes Treatment Clinical Notes 08/30/2024 Colon cancer screening (ICD-10 - Z12.11) Stop Eliquis for three days before the colonoscopy If you're not off the Clopidogrel(PLavix ) when the colonoscopy is coming up let me know 08/30/2024 Anticoagulant long-term use (ICD-10 - Z79.01) 08/30/2024 Encounter for other preprocedural examination (ICD-10 - Z01.818) PLAN OF TREATMENT Treatment Notes Assessment Notes Colon cancer screening Stop Eliquis for three days before the colonoscopy If you're not off the Clopidogrel(PLavix) when the colonoscopy is coming up let me know Future Test Test Name Order Date COLONOSCOPY 08/30/2024 Next Appt Details Follow Up: prn, Reason: Provider Name:Robb Duarte , 12/28/2024 08:20:00 AM, [address] [place] [address], [phone], Progress Notes * Examination Category Sub-Category Detail Notes General Examination GENERAL APPEARANCE: pleasant , well [...]
--- OUTSIDE RECORDS SUMMARY | 2024-09-28 19:10 | XMS_ITS | Patient Health Record ---
Author Organization [facility] Address [address] [place] [address] Care Team Providers Care Electric Tripper Machine Operator Name Role Phone Dexter Patricia Primary Care Provider UnavailRobb Sahu [phone] ALLERGIES Allergen (clinical drug ingredient) Drug/Non Drug Allergy documented on EMR Reaction Allergy Type Onset Date Status atorvastatin Atorvastatin altered mood Drug Allergy Active Penicillin Unknown Drug Allergy Active adhesive tape (uncoded) Unknown Allergy Active REASON FOR REFERRAL No Information MEDICATIONS Medication SIG (Take, Route, Frequency, Duration) Notes Start Date End Date Status Metoprolol Succinate ER Active Lovastatin Active Eliquis 5 MG TAKE 1 TABLET BY NATALIIA TH TWICE A DAY Oral for 90 Active Clopidogrel Bisulfate 75 MG TAKE 1 TABLE T BY MOUTH EVERY DAY Oral for 90 Active SOCIAL HISTORY Sex Assigned At : Social History Observation Description Sex Assigned At Unknown PROBLEMS Problem Type ICD Code Onset Dates Problem Status W/U Status Risk SNOMED Code Notes Problem Colon cancer screening (Z12.11) Active confirmed Colon cancer screening (347690064) Problem Encounter for other preprocedural examination (Z01.818) Active confirmed Pre-procedure evaluation check (906042169) Problem Anticoagulant long-term use (Z79.01) Active confirmed Long-term current use of anticoagulant (189289255) VITAL SIGNS Blood pressure diastolic 00 mm Hg 08/30/2024 Height 72.5 in 08/30/2024 Blood pressure systolic 00 mm Hg 08/30/2024 Weight 210 lbs 08/30/2024 BMI 28.09 kg/m2 08/30/2024 Encounters Encounter Location Date Provider Diagnosis [facility] [address] [place] [id number] 08/30/2024 Robb Duarte Colon cancer screeni ng [...] examination (ICD-10 - Z01.818) PLAN OF TREATMENT Future Test Test Name Order Date COLONOSCOPY 04/11/2014 COLONOSCOPY 08/30/2024 Next Appt Details Provider Name:Robb Duarte , 12/28/2024 08:20:00 AM, [address] [place] [address] , [place], [place], [phone], Insurance Providers Payer Name Payer Address Payer Phone Subscriber Number Group Number Insured Name Patient Relationship to Insured Coverage Start Date Coverage End Date MEDICARE OF [place] [address] [place] [address] [id number] BERNICE BARBOZA Self - patient is the insured [employer] ATT[employer] CLAIMS [address] [place] [address] [id number] BERNICE BARBOZA Self - patient is the insured MEDICAL (GENERAL) HISTORY Medical History History ICD Code Paroxysmal Atrial Fibrillation Denies UT,DM,CVA,Lung disease,renal dise ase Neg. screening colonoscopy with Dr. Kerline gibbons in 02/2005 Hyperlipidemia CAD with 1 stent placed in 11/2023--sees Dr. Lowe Negative colonoscopy in 05/2014 with me Surgical History Surgery Date(Month/Year) Hernia repair-bilateral inguinal Umbilical hernia repair
== END ==
LOC: HO.CARD 08:59
PROVIDERS: PCP Physician Assistant; Visit Provider Internal Medicine
DX: I77.810 Thoracic aortic ectasia (principal)
CPT/HCPCS: 93306

== ENCOUNTER → 2024-09-27 09:01 | Outpatient (BNV) | payer MEDICARE, SELFPAY | PROVIDERS: PCP Physician Assistant; Visit Provider Internal Medicine Cardiovascular Disease | DX: I42.8 Other cardiomyopathies (principal) | CPT/HCPCS: 93306 ==

== ENCOUNTER 2024-10-10 09:08 | Outpatient (AMB) | payer MEDICARE, SELFPAY ==
--- OUTSIDE RECORDS SUMMARY | 2024-10-10 09:10 | XMS_ITS ---
Author Organization [facility] Address [address] [place] [address] Care Team Providers Care Board Certified Arts Therapist Name Role Phone Dexter Patricia Primary Care Provider UnavailRobb Sahu [phone] ALLERGIES Allergen (clinical drug ingredient) Drug/Non Drug [...] screening (Z12.11) Active confirmed Colon cancer screening (273951127) Problem Anticoagulant long-term use (Z79.01) Active confirmed Long-term current use of anticoagulant (283025921) Problem Encounter for other preprocedural examination (Z01.818) Active confirmed Pre-procedure evaluation check (864724597) VITAL SIGNS BMI 28.09 kg/m2 08/30/2024 Blood pressure systolic 00 mm Hg 08/30/20 24 Blood pressure diastolic 00 mm Hg 024 Height 72.5 in 08/30/2024 Weight 210 lbs 08/30/2024 Encounters Encounter Location Date Provider Diagnosis [facility] [address] [place] [address] 08/30/2024 Robb Duarte Colon cancer screeni ng [...] Provider Name:Robb Duarte , 12/28/2024 08:20:00 AM, [address] [place] [address], [phone], Progress Notes * Examination Category Sub-Category Detail [...]
[2024-10-10 09:11] VITALS: BP 130/50; PULSE 53; BMI 29.5
--- NOTE | 2024-10-10 09:11 | MHC.OFFVIS ---
Vital Signs 10/10/24 09:11 Height 6 ft Weight 217 lb 13.067 oz BMI 29.5 BP 130/50 L Blood Pressure Location Lt brachial Position Sitting Pulse 53 Pulse Source Pulse Oximeter Intake Visit Reasons: 6m follow up Highway Engineering Teacher Required: No Accompanied by: Self / Same As Patient Allergies adhesive tape [ADHESIVE TAPE] Allergy (Intermediate, Verified 09/20/24 09:04) HIVES Penicillins [PENICILLINS] Allergy (Unknown, Verified 09/20/24 09:04) UNKNOWN REACTION-CHILDHOOD ALLERGY atorvastatin Adverse Reaction (Intermediate, Verified 09/20/24 09:04) Altered Mood heart monitor electrodes Allergy (Intermediate, Uncoded 09/20/24 09:04) Hives (if on for extended time frame) Medication List - Last Reconciled 10/10/24 by Mani Lowe MD apixaban (Eliquis) 5 mg PO BID clopidogrel 75 mg PO DAILY lovastatin 40 mg PO DAILY 90 days metoprolol succinate ER 50 mg PO DAILY HPI Comments Details: Yomi returns for follow-up of atrial fibrillation as well as coronary artery disease. In 2016, he underwent THOMAS/cardioversion. In that regard, he has been fairly stable for years. He is maintained on metoprolol and Eliquis. During prior visit, he was complaining of some exertional throat tightness. Stress test unremarkable but it felt like an anginal equivalent and hence he underwent cardiac catheterization with LAD stenting. After that, it is apparently much better and he no longer gets that neck symptom. Overall, he feels fine for the most part. Some concerns about bruising which could be from combination of Eliquis/Plavix. No other concerns. [facility] Medical History (Updated 09/20/24 @ 09:13 by Dexter Patricia PA-C) Eustachian tube dysfunction Anticoagulated Ascending aorta dilatation History of cardioversion Polyarthritis Elevated cholesterol HTN (hypertension) Atherosclerotic cardiovascular disease Sinus bradycardia PAF (paroxysmal atrial fibrillation) Surgical History History of left inguinal hernia (~11/27/22) Hx of cardiac catheterization History of colonoscopy (02/24/09) History of hemorrhoidectomy (04/05/19) History of right inguinal hernia repair (03/05/12) History of left inguinal hernia repair (09/04/11) History of umbilical hernia repair Family History Father CHF (congestive heart failure) Mother Hypertension Osteoarthritis Social History Housing: House Are you a primary women's health care nurse practitioner to a significant other at home: No Do you presently have visiting nurse or other home services: No Alcohol intake: current Alcohol intake frequency: a few times a week Alcohol type: beer Patient Tobacco Use Status: Never used Tobacco e-Cigarette/Vaping Use: Never Used Second Hand Smoke Exposure: Yes service: Yes Current occupational status: retired Cognitive needs: Yes Hearing needs: No Vision needs: No Review of Systems Const Denies chills, Denies fatigue, Denies fever(s), Denies weight gain and Denies weight loss ENT Denies dizziness Card Denies chest pain, Denies leg edema, Denies lightheadedness, Denies palpitations, Denies dyspnea on exertion, Denies orthopnea and Denies other Resp Denies cough and Denies dyspnea on exertion GI Denies hematochezia and Denies change in stool character Musc Denies abnormal gait, Denies muscle weakness, Denies numbness, Denies radiating pain into limb and Denies tingling Neuro Denies abnormal gait, Denies dizziness, Denies numbness and Denies tingling Endo Denies fatigue and Denies palpitations Physical Exam Vital Signs: Last Vital Signs Pulse 53 10/10/24 09:11 BP 130/50 L 10/10/24 09:11 BMI result Body Mass Index 29.5 Const General: comfortable and no acute distress Orientation/consciousness: patient oriented x3 HEENT Other: Unremarkable Head: Yes normal to inspection Neck Neck: Yes normal visual inspection Chest Chest palpation & inspection: normal inspection of the chest Resp Auscultation: clear to auscultation bilaterally Cardio Palpation: normal PMI Heart sounds: S1 normal heart sound present, S2 normal heart sound present, no gallops, no murmurs and no rubs GI Palpation (GI): Soft to palpation Back/Spine/Pelvis Other: unremarkable Skin General skin exam: no rashes or lesions noted Neuro General: patient oriented x3 Extrem General: Yes normal to inspection Psych Mental Status: mental status grossly normal Assessment & Plan Assessment & Plan (1) Atherosclerotic cardiovascular disease: Code(s): I25.10 - Atherosclerotic heart disease of [place] coronary artery without angina pectoris Category: Medical Plan: Cardiac catheterization data reviewed -10/2023. 80% mid LAD lesion status post PCI. Otherwise, intermediate grade lesions in the proximal and distal LAD. No significant findings and left main, circumflex or RCA. Continue Plavix for 1 year from time of stenting but as he is complaining of bruising and can stop after that. No anginal symptoms. Remains on statins. LDL levels are in the 70s, 80s. (2) PAF (paroxysmal atrial fibrillation): Code(s): I48.0 - Paroxysmal atrial fibrillation Category: Medical Plan: Continue beta-blockers. Continue anticoagulation. Remote history of abnormal LFTs with ? Multaq (3) Sinus bradycardia: Code(s): R00.1 - Bradycardia, unspecified Category: Medical Plan: No specific symptoms. Hence can continue beta-blockers. (4) Ascending aorta dilatation: Code(s): I77.810 - Thoracic aortic ectasia Category: Medical Plan: Ascending aorta not well visualized in the most recent study, possibly 4.3-4.4 cm. Previously reported as 4.2 cm. May recheck in 6 months. If still not well visualized, get CT. (5) Preoperative cardiovascular examination: Code(s): Z01.810 - Encounter for preprocedural cardiovascular examination Category: Medical Plan: Plan for colonoscopy in December. He should be off Plavix by then. With regard to Eliquis, may hold for 2 days before procedure. Otherwise, okay to proceed. Orders: Orders CA Echo Limited 6 Months I77.89 - Other specified disorders of arteries and arterioles Coding Level of Care Code Est Pt Level 4 (26844) Diagnoses Atherosclerotic cardiovascular disease I25.10 PAF (paroxysmal atrial fibrillation) I48.0 Sinus bradycardia R00.1 Ascending aorta dilatation I77.810 Preoperative cardiovascular examination Z01.810
--- OUTSIDE RECORDS SUMMARY | 2024-10-10 09:11 | XMS_ITS | Patient Health Record ---
[facility] Address [address] [place] [address] Care Team Providers Care Patented Hogshead Assembler Name Role Phone Dexter Patricia Primary Care Provider UnavailRobb Sahu [phone] ALLERGIES Allergen (clinical drug ingredient) Drug/Non Drug [...] screening (Z12.11) Active confirmed Colon cancer screening (089199566) Problem Encounter for other preprocedural examination (Z01.818) Active confirmed Pre-procedure evaluation check (418244371) Problem Anticoagulant long-term use (Z79.01) Active confirmed Long-term current use of anticoagulant (741327740) VITAL SIGNS Blood pressure diastolic 00 mm Hg 08/30/2024 Height 72.5 in 08/30/2024 Blood pressure systolic 00 mm Hg 08/30/2024 Weight 210 lbs 08/30/2024 BMI 28.09 kg/m2 08/30/2024 Encounters Encounter Location Date Provider Diagnosis [facility] [address] [place] [phone] 08/30/2024 Robb Duarte Colon cancer screeni ng [...] Provider Name:Robb Duarte , 12/28/2024 08:20:00 AM, [address] [place] [address] , [place], [place], [phone], Insurance Providers Payer Name Payer Address Payer Phone Subscriber Number Group Number Insured Name Patient Relationship to Insured Coverage Start Date Coverage End Date MED[place]ARE OF [place] [address] [place] [address] [id number] BERNICE BARBOZA Self - patient is the insured MEDEX ATTN CLAIMS [address] [place] [phone] [id number] BERNICE BARBOZA Self - patient is the insured MEDICAL (GENERAL) HISTORY Medical History History ICD Code Paroxysmal Atrial Fibrillation Denies [place],DM,CVA,Lung disease,renal dise ase Neg. screening colonoscopy with Dr. Kerline gibbons in 02/2005 Hyperlipidemia CAD with 1 stent placed in 11/2023--sees Dr. Lowe Negative colonoscopy in 05/2014 with me Surgical History Surgery Date(Month/Year) Hernia repair-bilateral inguinal Umbilical hernia repair
== END 2024-10-10 09:31 | disposition home or self-care (01) ==
PROVIDERS: PCP Physician Assistant; Visit Provider Internal Medicine
DX: I25.10 Atherosclerotic heart disease of native coronary artery without angina pectoris (principal); I48.0 Paroxysmal atrial fibrillation; R00.1 Bradycardia, unspecified; I77.810 Thoracic aortic ectasia; Z01.810 Encounter for preprocedural cardiovascular examination
CPT/HCPCS: 99214

== ENCOUNTER → 2024-10-10 09:08 | Outpatient (BNVA) | payer MEDICARE, SELFPAY | PROVIDERS: PCP Physician Assistant; Visit Provider Internal Medicine | DX: Z01.810 Encounter for preprocedural cardiovascular examination (principal); I25.10 Atherosclerotic heart disease of native coronary artery without angina pectoris; I48.0 Paroxysmal atrial fibrillation; I77.810 Thoracic aortic ectasia; R00.1 Bradycardia, unspecified | CPT/HCPCS: 99212 ==

== ENCOUNTER 2024-12-28 06:57 | Day surgery (SDC) | payer MEDICARE, SELFPAY ==
--- OUTSIDE RECORDS SUMMARY | 2024-12-16 12:29 | XMS_ITS | Patient Health Record ---
Author Organization [facility] Address [address] [place] [address] Care Team Providers Care Programmer Engineering And Scientific Name Role Phone Dexter Patricia Primary Care Provider UnavailRobb Sahu [phone] ALLERGIES Allergen (clinical drug ingredient) Drug/Non Drug [...] screening (Z12.11) Active confirmed Colon cancer screening (990411609) Problem Encounter for other preprocedural examination (Z01.818) Active confirmed Pre-procedure evaluation check (216710388) Problem Anticoagulant long-term use (Z79.01) Active confirmed Long-term current use of anticoagulant (297070359) VITAL SIGNS Blood pressure diastolic 00 mm Hg 08/30/2024 Height 72.5 in 08/30/2024 Blood pressure systolic 00 mm Hg 08/30/2024 Weight 210 lbs 08/30/2024 BMI 28.09 kg/m2 08/30/2024 Encounters Encounter Location Date Provider Diagnosis [facility] [address] [place] [phone] 08/30/2024 Robb Duarte Colon cancer screeni ng [...] Provider Name:Robb Duarte , 12/28/2024 08:20:00 AM, [address] [place] [address] , [place], [place], [phone], Insurance Providers Payer Name Payer Address Payer Phone Subscriber Number Group Number Insured Name Patient Relationship to Insured Coverage Start Date Coverage End Date MED[place]ARE OF [place] [address] [place] [address] [id number] BERNICE BARBOZA Self - patient is the insured MEDEX ATTN CLAIMS [address] [place] [phone] [id number] BERNICE BARBOZA Self - patient is the insured MEDICAL (GENERAL) HISTORY Medical History History ICD Code Paroxysmal Atrial Fibrillation Denies [place],DM,CVA,Lung disease,renal dise ase Neg. screening colonoscopy with Dr. Kerline gibbons in 02/2005 Hyperlipidemia CAD with 1 stent placed in 11/2023--sees Dr. Lowe Negative colonoscopy in 05/2014 with me Surgical History Surgery Date(Month/Year) Hernia repair-bilateral inguinal Umbilical hernia repair
--- OUTSIDE RECORDS SUMMARY | 2024-12-16 12:29 | XMS_ITS ---
Author Organization [facility] Address [address] [place] [address] Care Team Providers Care Nuclear Medicine Specialist Name Role Phone Dexter Patricia Primary Care Provider UnavailRobb Sahu [phone] ALLERGIES Allergen (clinical drug ingredient) Drug/Non Drug [...] screening (Z12.11) Active confirmed Colon cancer screening (379257217) Problem Anticoagulant long-term use (Z79.01) Active confirmed Long-term current use of anticoagulant (966519054) Problem Encounter for other preprocedural examination (Z01.818) Active confirmed Pre-procedure evaluation check (312859106) VITAL SIGNS Blood pressure systolic 00 mm Hg 08/30/20 24 Blood pressure diastolic 00 mm Hg 024 Height 72.5 in 08/30/2024 Weight 210 lbs 08/30/2024 BMI 28.09 kg/m2 08/30/2024 Encounters Encounter Location Date Provider Diagnosis [facility] [address] [place] [address] 08/30/2024 Robb Duarte Colon cancer screeni ng [...] Provider Name:Robb Duarte , 12/28/2024 08:20:00 AM, [address] [place] [address], [phone], Progress Notes * Examination Category Sub-Category Detail [...]
[2024-12-26 12:40] VITALS: BMI 29.4
[2024-12-26 12:58] VITALS: BMI 28.5
--- NOTE | 2024-12-27 08:33 | P.CONAN_ITS ---
Documented by User: Casi Verdin NP 12/27/24 08:37 HPI - Anesthesia Eval Consult details Narrative: 74yo M for Colonoscopy [place] [facility] [place] s/p stent 10/2023, afib (eliquis). Last office visit 09/2024 stable and ok to procedd with colo PMFSH Active Problems Active Problems: All Active Problems PND (post-nasal drip) (Acute) Ascending aorta enlargement (Acute) Stented coronary artery (Acute) S/P cardiac cath (Acute) Angina of effort (Acute) Bad odor of urine (Acute) Elevated liver enzymes (Acute) Right knee pain (Acute) Recurrent left inguinal hernia (Acute) Preoperative cardiovascular examination (Acute) Severe left groin pain (Acute) Bradycardia (Acute) Left inguinal hernia (Acute) HLD (hyperlipidemia) (Acute) HTN (hypertension) (Acute) Medicare annual wellness visit, initial (Acute) Polyarthritis (Acute) Leukocytosis (Acute) Folliculitis (Acute) Annual physical exam (Acute) Osteoarthritis (Acute) Fatty liver disease, nonalcoholic (Acute) Ascending aorta dilatation (Acute) Atherosclerotic cardiovascular disease (Acute) Sinus bradycardia (Acute) PAF (paroxysmal atrial fibrillation) (Acute) Past Medical History Medical History History of cardioversion Polyarthritis Elevated cholesterol HTN (hypertension) Anticoagulated Eustachian tube dysfunction Ascending aorta dilatation Atherosclerotic cardiovascular disease Sinus bradycardia PAF (paroxysmal atrial fibrillation) Family History Family History Father CHF (congestive heart failure) Mother Hypertension Osteoarthritis Family history of problems with anesthesia: No Surgical History Surgical History History of left inguinal hernia (11/27/22) Hx of cardiac catheterization History of colonoscopy (02/24/09) History of hemorrhoidectomy (04/05/19) History of right inguinal hernia repair (03/05/12) History of left inguinal hernia repair (09/04/11) History of umbilical hernia repair History of Problems with Anesthesia: No Social History Social History Household Members: Spouse Housing: House Are you a primary ocular care technologist to a significant other at home: No Do you presently have visiting nurse or other home services: No Alcohol intake: current Alcohol intake frequency: a few times a week Alcohol type: beer Patient Tobacco Use Status: Never used Tobacco e-Cigarette/Vaping Use: Never Used Second Hand Smoke Exposure: Yes Use of substances other than those prescribed or required for medical reasons: No Have you been hit, kicked, punched, or otherwise hurt by someone within the past year? If so, by whom?: No Are you DNR?: No Advance Directives: No Advance Directives Information Provided: Yes Recently lost weight without trying: No Nutrition Risks: No Nutritional Risk Poor oral hygiene: No service: Yes Current occupational status: retired Cognitive needs: Yes Hearing needs: No Vision needs: No Meds Allergies Allergy/AdvReac Type Severity Reaction Status Date / Time adhesive tape [ADHESIVE TAPE] Allergy Intermediate HIVES Verified 12/26/24 12:58 Penicillins [PENICILLINS] Allergy Unknown UNKNOWN Verified 12/26/24 12:58 REACTION-CHILDHOOD ALLERGY atorvastatin AdvReac Intermediate Altered Verified 12/26/24 12:58 Mood heart monitor electrodes Allergy Intermediate Hives (if Uncoded 12/26/24 12:58 on for extended time frame) Exam Height,Weight and Vital Signs: Height 6 ft Weight 95.254 kg Pertinent Lab Results Pertinent Lab Results: Laboratory Tests 09/12/24 07:43 WBC 6.3 Hgb 15.7 Hct 44.8 Plt Count 264 Sodium 140 Potassium 4.3 Chloride 105 Carbon Dioxide 28 BUN 10 Creatinine 1.08 Narrative Narrative: Cardiac catheterization data reviewed -10/2023. 80% mid LAD lesion status post PCI. Otherwise, intermediate grade lesions in the proximal and distal LAD. No significant findings and left main, circumflex or RCA. ECHO 2023 Conclusions: - 1. Technically limited study with off axis parasternal views 2. LV ejection fraction appears to be preserved at 55-60% with impaired relaxation filling pattern 3. Cardiac valvular Dopplers within normal limits EKG 2023 Vent. Rate : 126 BPM Atrial Rate : 000 BPM P-R Int : 000 ms QRS Dur : 134 ms QT Int : 284 ms P-R-T Axes : 000 095 006 degrees QTc Int : 411 ms Atrial fibrillation with rapid ventricular response with premature ventricular or aberrantly conducted complexes Right bundle branch block Abnormal ECG When compared with ECG of 19-AUG-2016 11:49, Atrial fibrillation has replaced Sinus rhythm Vent. rate has increased BY 80 BPM Right bundle branch block is now Present Assessment and Plan Assessment Anesthesia Assessment: Chart Reviewed Final Anesthetic Review Family History of Problems with Anesthesia: No History of Problems with Anesthesia: No Documented by User: Cristina Nichols MD 12/28/24 08:45 PMF Past Medical History Medical History History of cardioversion Polyarthritis Elevated cholesterol HTN (hypertension) Anticoagulated Eustachian tube dysfunction Ascending aorta dilatation Atherosclerotic cardiovascular disease Sinus bradycardia PAF (paroxysmal atrial fibrillation) Family History Family History Father CHF (congestive heart failure) Mother Hypertension Osteoarthritis Surgical History Surgical History History of left inguinal hernia (11/27/22) Hx of cardiac catheterization History of colonoscopy (02/24/09) History of hemorrhoidectomy (04/05/19) History of right inguinal hernia repair (03/05/12) History of left inguinal hernia repair (09/04/11) History of umbilical hernia repair Social History Social History Household Members: Spouse Housing: House Are you a primary ocular care technologist to a significant other at home: No Do you presently have visiting nurse or other home services: No Alcohol intake: current Alcohol intake frequency: a few times a week Alcohol type: beer Patient Tobacco Use Status: Never used Tobacco e-Cigarette/Vaping Use: Never Used Second Hand Smoke Exposure: Yes Use of substances other than those prescribed or required for medical reasons: No Have you been hit, kicked, punched, or otherwise hurt by someone within the past year? If so, by whom?: No Are you DNR?: No Advance Directives: No Advance Directives Information Provided: Yes Recently lost weight without trying: No Nutrition Risks: No Nutritional Risk Poor oral hygiene: No service: Yes Current occupational status: retired Cognitive needs: Yes Hearing needs: No Vision needs: No Meds Allergies Allergy/AdvReac Type Severity Reaction Status Date / Time adhesive tape [ADHESIVE TAPE] Allergy Intermediate HIVES Verified 12/26/24 12:58 Penicillins [PENICILLINS] Allergy Unknown UNKNOWN Verified 12/26/24 12:58 REACTION-CHILDHOOD ALLERGY atorvastatin AdvReac Intermediate Altered Verified 12/26/24 12:58 Mood heart monitor electrodes Allergy Intermediate Hives (if Uncoded 12/26/24 12:58 on for extended time frame) Exam Airway Mallampati Class: II TM Dist: >3cm Neck ROM: Full Heart: rrr Lungs: cta Assessment and Plan Final Anesthetic Review NPO: Yes ASA Class: III Final Preanesthetic Review: No Changes in Pt Med Stat, Meds/Allgs Chart Reviewed, Consent Obtained/Reviewed and Anes Risks/Benef Reviewed Patient Risk: Intermediate Procedure Risk: Low Anesthetic Plan Anesthetic Plan: MAC: Disposition: Standard PACU
[2024-12-28 07:32] VITALS: BMI 29.1
[2024-12-28 07:48] VITALS: BP 148/64; PULSE 48; RESP 16; TEMP 35.6; O2SAT 96
[2024-12-28 09:10] VITALS: BP 94/53; PULSE 58; RESP 16; TEMP 36.6; O2SAT 95
--- NOTE | 2024-12-28 09:12 | P.BOP_ITS ---
Brief Operative Note Date of Service: 12/28/24 Pre-op diagnosis: Screening Post-op diagnosis: other (Diverticulosis) Procedure: Colonoscopy to the cecum and TI Surgeon: Robb Duarte MD Anesthesia: MAC Was an Liquor Bridge Operator Helper used for this Procedure?: No Estimated blood loss (mL): 0 Pathology: none sent Condition: stable Disposition: PACU
[2024-12-28 09:24] VITALS: BP 115/56; PULSE 48; RESP 18; TEMP 36.5; O2SAT 95
--- NOTE | 2024-12-28 10:44 | OP_ITS ---
DATE OF SERVICE: 12/28/2024 SURGEON: Robb Duarte MD INDICATIONS: The patient presents for evaluation of colorectal cancer screening. Full consent has been obtained from him for this, including risks of bleeding and perforation. PREOPERATIVE DIAGNOSIS: Colorectal cancer screening. POSTOPERATIVE DIAGNOSIS: PROCEDURE PERFORMED: Colonoscopy to the cecum and terminal ileum. ESTIMATED BLOOD LOSS: COMPLICATIONS: ANESTHESIA: Monitored anesthesia care. ASSISTANTS: SPECIMENS: POSTOPERATIVE DIAGNOSES: Colorectal cancer screening, sigmoid diverticulosis, and internal hemorrhoids. DESCRIPTION OF PROCEDURE: The patient was placed in left lateral decubitus position. The digital rectal exam revealed no abnormalities. The Olympus video pediatric colonoscope was entered into the rectum and advanced easily to the cecum. Once in the cecum, I did identify a normal-appearing cecal pouch with appendiceal orifice and a normal-appearing ileocecal valve. There was transillumination of light deep in the right lower quadrant. The terminal ileum was cannulated and appeared normal. The scope was withdrawn back in the colon. The entire cecum and ileocecal valve appeared normal. The scope was slowly withdrawn assessing all mucosal surfaces carefully. Preparation was excellent. I did not visualize any sign of polyps, colitis, or angiodysplasia. There was a mild amount of sigmoid diverticulosis. In the rectum, scope was retroflexed visualizing internal hemorrhoids, but no other pathology. The rectal mucosa appeared normal. Scope was straightened and withdrawn from the patient. He tolerated the procedure well and was returned to the recovery area in stable condition. IMPRESSION: 1. Diverticulosis. 2. Internal hemorrhoids. PLAN: Given the negative exam and his age, I do not think he would need any further screening colonoscopies. He will otherwise see me on a p.r.n. basis. He was advised to resume his Eliquis today. This has been discussed with his . MD DE Blunt/GONZALES / [phone]
== END 2024-12-28 10:15 | disposition home or self-care (01) ==
PROVIDERS: PCP Physician Assistant; Visit Provider Internal Medicine
PROC: 0DJD8ZZ Inspection of Lower Intestinal Tract, Via Natural or Artificial Opening Endoscopic (ICD-10-PCS; CPT 45378; principal; 2024-12-28 08:20)
DX: Z12.11 Encounter for screening for malignant neoplasm of colon (principal); K57.30 Diverticulosis of large intestine without perforation or abscess without bleeding; K64.8 Other hemorrhoids; I10 Essential (primary) hypertension; I25.10 Atherosclerotic heart disease of native coronary artery without angina pectoris; Z95.5 Presence of coronary angioplasty implant and graft; R00.1 Bradycardia, unspecified; I48.0 Paroxysmal atrial fibrillation; I77.810 Thoracic aortic ectasia; E78.00 Pure hypercholesterolemia, unspecified; Z79.01 Long term (current) use of anticoagulants; Z79.899 Other long term (current) drug therapy; Z88.0 Allergy status to penicillin; Z88.8 Allergy status to other drugs, medicaments and biological substances; L23.1 Allergic contact dermatitis due to adhesives; Z98.890 Other specified postprocedural states
CPT/HCPCS: G0121; J2704

== ENCOUNTER 2025-02-15 07:40 | Outpatient (REF) | payer MEDICARE, SELFPAY ==
[2025-02-15 10:11] LABS: Hematocrit 43.5 % (42.0-52.0); Hemoglobin 14.9 g/dl (14.0-18.0); Mean Corpuscular HGB Conc 34.3 g/dl (31.0-36.0); Mean Corpuscular Hemoglobin 32.5 pg (27.0-33.0); Mean Platelet Volume 10.3 fL (9.4-12.4); Platelet Count 250 X10*3/uL (160-400); Red Blood Count 4.58 X10*6/uL (4.60-5.80); Red Cell Distribution Width 12.2 % (11.0-16.0); White Blood Count 5.7 X10*3/uL (4.8-10.8)
[2025-02-15 10:22] LABS: Alanine Aminotransferase 80 U/L (0-40); Albumin Level 4.1 g/dL (3.5-5.0); Alkaline Phosphatase 65 U/L (39-117); Anion Gap 12 (12-20); Aspartate Amino Transferase 67 U/L (5-37); Bilirubin Total 0.9 mg/dL (0.0-1.0); Blood Urea Nitrogen 11 mg/dL (9-16); Calcium 9.3 mg/dL (8.4-10.2); Carbon Dioxide 26 mmol/L (22-29); Chloride 108 mmol/L (96-108); Cholesterol 148 mg/dL (<200); Estimated Glomerular Filt Rate > 60; Glucose Fasting 93 mg/dL (60-99); HDL Cholesterol 49 mg/dL (>40); LDL Cholesterol Calculated 79 mg/dL (<100); Potassium 4.4 mmol/L (3.3-5.1); Sodium 142 mmol/L (135-145); Total Protein 6.8 g/dL (6.5-8.0); Triglycerides 103 mg/dL (<150)
[2025-02-15 10:59] LABS: Creatinine Urine 227.97 mg/dL
[2025-02-15 10:59] LABS: Prostate Specific Antigen Scr 2.27 ng/mL (<0.05-4.0)
== END 2025-02-15 07:41 | disposition home or self-care (01) ==
LOC: HO.HMGCLDS 07:40
PROVIDERS: PCP Physician Assistant; Visit Provider Physician Assistant
DX: I10 Essential (primary) hypertension (principal); E78.2 Mixed hyperlipidemia; Z12.5 Encounter for screening for malignant neoplasm of prostate; D72.829 Elevated white blood cell count, unspecified; E78.5 Hyperlipidemia, unspecified
CPT/HCPCS: 36415; 80053; 80061; 82043; 82570; 84153; 85027

== ENCOUNTER → 2025-02-20 08:52 | Outpatient (BNVA) | payer MEDICARE, SELFPAY | PROVIDERS: PCP Physician Assistant; Visit Provider Physician Assistant | DX: Z00.00 Encounter for general adult medical examination without abnormal findings (principal); I10 Essential (primary) hypertension; E78.2 Mixed hyperlipidemia; I48.0 Paroxysmal atrial fibrillation; R74.8 Abnormal levels of other serum enzymes; Z95.5 Presence of coronary angioplasty implant and graft | CPT/HCPCS: 96127; 99212 ==

== ENCOUNTER 2025-02-20 09:43 | Outpatient (AMB) | payer MEDICARE, SELFPAY ==
--- NOTE | 2025-02-20 09:03 | A.OFFPC_ITS ---
Vital Signs 02/20/25 09:04 Height 6 ft Weight 213 lb 8 oz BMI 29.0 BP 130/70 Blood Pressure Location Lt brachial Position Sitting Pulse 45 L Pulse Source Pulse Oximeter Temp 97.3 F Temp Source Temporal Artery Scan Pulse Oximetry (%) 96 Oxygen Delivery Method Room Air Intake Visit Reasons: pe Intake Note: Patient is here today for a physical. Regulatory Affairs Assistant Required: No Varnish Dipper: Not Required per policy Accompanied by: Self / Same As Patient Allergies adhesive tape [ADHESIVE TAPE] Allergy (Intermediate, Verified 02/20/25 09:21) HIVES Penicillins [PENICILLINS] Allergy (Unknown, Verified 02/20/25 09:21) UNKNOWN REACTION-CHILDHOOD ALLERGY atorvastatin Adverse Reaction (Intermediate, Verified 02/20/25 09:21) Altered Mood heart monitor electrodes Allergy (Intermediate, Uncoded 02/20/25 09:21) Hives (if on for extended time frame) Medication List - Last Reconciled 02/20/25 by Dexter Patricia PA-C apixaban (Eliquis) 5 mg PO BID 90 days lovastatin 40 mg PO DAILY metoprolol succinate ER 50 mg PO DAILY Tobacco use date assessed: 02/20/25 Fall risk assessment: No Falls in past year Last assessed Fall Risk: 02/20/25 Dental Screening Dental Screen Date: 02/20/25 Did you have a dental visit in the last 12 months?: Yes Did you have a dental problem in the last 6 months where you did not have access to dental care?: No Was dental information given to patient?: Patient has dentist HPI pe HPI Details Patient is a 75-year-old male here today for a routine annual physical. .? Patient has a past medical history si gnificant for polyarthritis, paroxysmal AFib, hypertension. .. Paroxysmal AFIB: Is followed by [facility]. No overt bleeding on eliquis.? He continues to be in p-AFib any symptoms.? Recent ECHO unremarkable. Coronary artery disease: Due to reports exertional throat tightness patient sent for nuclear stress test which was normal. Recently underwent a cardiac catheterization in that showed 80% stenosis in the LAD, drug-eluting stent was placed. .. Elevated liver enzymes: Have normalized , Noted slightly elevated liver enzymes likely secondary to is fatty liver disease. Patient now willing to confirm suspicions of fatty liver disease with an ultrasound. . Osteoarthritis:? Patient does report taking an ibuprofen 800 on a very limited basis.? He understands he is on anticoagulation therapy and should not be taking any NSAIDs though he only finds that ibuprofen works. Colorectal cancer screening: Up-to-date with colonoscopy Vaccines: Up-to-date with COVID vaccine, RSV, tetanus, shingles vaccines Laboratory Tests 09/12/24 02/15/25 02/15/25 07:43 07:00 07:50 RBC 4.58 L Hgb 14.9 Creatinine 1.11 AST 47 H 67 H ALT 62 H 80 H Cholesterol 147 148 Triglycerides 103 PSA Screen 2.27 Urine Microalbumin 7.0 [facility] Medical History History of cardioversion Polyarthritis Elevated cholesterol HTN (hypertension) Anticoagulated Eustachian tube dysfunction Ascending aorta dilatation Atherosclerotic cardiovascular disease Sinus bradycardia PAF (paroxysmal atrial fibrillation) Surgical History History of left inguinal hernia (11/27/22) Hx of cardiac catheterization History of colonoscopy (02/24/09) History of hemorrhoidectomy (04/05/19) History of right inguinal hernia repair (03/05/12) History of left inguinal hernia repair (09/04/11) History of umbilical hernia repair Family History Father CHF (congestive heart failure) Mother Hypertension Osteoarthritis Social History (Updated 02/20/25 @ 09:26 by Dexter Patricia PA-C) Household Members: Spouse Housing: House Are you a primary healthcare associate to a significant other at home: No Do you presently have visiting nurse or other home services: No 75 years or older and lives alone: No Alcohol intake: current Alcohol intake frequency: a few times a week Alcohol type: beer Patient Tobacco Use Status: Never used Tobacco e-Cigarette/Vaping Use: Never Used Second Hand Smoke Exposure: Yes service: Yes Current occupational status: retired Cognitive needs: Yes Hearing needs: No Vision needs: Yes (Reading glasses) Questionnaire PHQ-9 Over the last 2 weeks, how often have you been bothered by any of the following problems? 1. Little interest or pleasure in doing things: not at all 2. Feeling down, depressed, or hopeless: not at all 3. Trouble falling or staying asleep, or sleeping too much: not at all 4. Feeling tired or having little energy: not at all 5. Poor appetite or overeating: not at all 6. Feeling bad about yourself - or that you are a failure or have let yourself or your family down: not at all 7. Trouble concentrating on things, such as reading the newspaper or watching television: not at all 8. Moving or speaking so slowly that other people could have noticed. Or the opposite - being so fidgety or restless that you have been moving around a lot more than usual: not at all 9. Thoughts that you would be better off or of hurting yourself in some way: not at all Total score: 0 Depression Screening Interpretation: Negative Depression Screening Done: Yes 45150 - PHQ-9 Billing: Yes Source: Developed by Drs. Robb Mccurdy, Quyen Jarquin, Alan Freeman and colleagues, with an educational jennifer from [employer]. Thrive Questionnaire Date Thrive assessed: 02/16/25 I am a: Patient What is your living situation today?: I have a steady place to live Within the past 12 months, did the food you bought not last and you didn't have the money to get more?: Never true Within the past 12 months, did you worry whether your food would run out before you got money to buy more?: Never true Do you have trouble paying for medicines?: No Do you have trouble getting transportation to medical appointments?: No Do you have trouble paying your heating and electricity bill?: No Do you have trouble taking care of your child, family member or friend?: No Do you have trouble with day-to-day activities such as bathing, preparing meals, shopping, managing finances, etc.?: No Are you currently unemployed and looking for a job?: No Are you interested in more education?: No Please select the resources that you would like help with: None Currently or been in a relationship where the following occur: No concerns reported THRIVE Score: 0 AUDIT C Alcohol Use Questionnaire (AUDIT-C) 1. How often do you have a drink containing alcohol?: 2-3 times a week 2. How many drinks containing alcohol do you have on a typical day when you are drinking?: 1 or 2 3. How often do you have six or more drinks on one occasion?: Never Total Score: 3 MELITON-7 AMB Questionnaire MELITON-7 Date MELITON - 7 assessed: 02/20/25 Feeling nervous, anxious, or on edge: 0 = Not at all Not being able to stop or control worryin = Not at all Worrying too much about different things: 0 = Not at all Trouble relaxin = Not at all Being so restless that it is hard to sit still: 0 = Not at all Becoming easily annoyed or irritable: 0 = Not at all Feeling afraid as if something awful might happen: 0 = Not at all Total MELITON-7 score (0-4 normal; 5-9 mild; 10-14 moderate; 15-21 severe): 0 Source: Developed by Drs. Robb Mccurdy, Quyen Jarquin, Alan Freeman and colleagues, with an educational jennifer from [employer]. MELITON-7 Assessment Billing MELITON-7 Assessment Tool: MELITON-7 Assessment 13888 Review of Systems Const Denies body aches, Denies chills, Denies excessive sweating, Denies fatigue, Denies fever(s) and Denies headache(s) Eyes Denies blurry vision ENT Denies dysphagia, Denies vertigo, Denies dizziness, Denies headache(s), Denies hearing loss and Denies tinnitus Card Denies chest pain, Denies chest pain with activity, Denies syncope, Denies irregular heart rhythm and Denies dyspnea Resp Denies chest congestion, Denies cough, Denies hemoptysis, Denies dyspnea and Denies wheezing GI Denies abdominal pain, Denies melena, Denies hematochezia, Denies coffee ground emesis, Denies dysphagia, Denies diarrhea, Denies nausea and Denies vomiting Denies difficulty urinating, Denies dysuria, Denies urinary frequency, Denies urinary hesitancy and Denies urinary urgency Musc Denies arthralgias, Denies limited range of motion, Denies muscle cramps and Denies muscle weakness Skin/Breast Denies rash and Denies skin ulcer Neuro Denies Abnormal speech present, Denies confusion, Denies vertigo, Denies dizziness, Denies syncope, Denies headache(s), Denies memory loss and Denies seizure-like activity Psych Denies anxiety, Denies confusion, Denies depression, Denies memory loss, Denies panic attacks and Denies paranoia Endo Denies excessive sweating, Denies fatigue, Denies flushing, Denies polydipsia and Denies polyuria Aller/Immun Denies wheezing Physical exam (Primary Care) Vital Signs: Last Vital Signs Temp 97.3 F 02/20/25 09:04 Pulse 45 L 02/20/25 09:04 BP 130/70 02/20/25 09:04 Pulse Ox 96 02/20/25 09:04 Oxygen Delivery Method Room Air 02/20/25 09:04 BMI result Body Mass Index 29.0 Tobacco/Smoking Status: Tobacco use Status Tobacco use date assessed 02/20/25 02/20/25 09:09 Patient Tobacco Use Status Never used Tobacco 02/20/25 09:26 e-Cigarette/Vaping Use Never Used 02/20/25 09:26 PHQ-9: PHQ-9 Score PHQ-9: Total score 0 02/20/25 09:37 Depression Screening Interpretation: Negative Thrive Assessment: Date of Thrive Assessment Date Thrive assessed 02/16/25 02/20/25 09:09 Currently or been in a relationship where the following occur: No concerns rep orted Const General: cooperative, comfortable, no acute distress, alert and awake; No confusion Orientation/consciousness: oriented to person, oriented to place, patient oriented x3 and No confusion HENMT Head: Yes normocephalic Ears: external ears normal and TM's normal bilaterally Face and sinus: No sinus tenderness Mouth: Normal oral and palatal mucosa present and tongue normal Teeth and gingiva: dentition normal and gingiva normal Throat: Yes posterior oropharynx normal, Yes tonsils normal and Yes uvula midline Eyes Conjunctivae: conjunctivae normal Sclerae: sclerae normal Pupils: Equal, round and reactive pupils present EOM: EOMs intact bilaterally Direct Ophthalmoscopy: No no photophobia Neck Neck: Yes no lymphadenopathy, No tender and Yes no JVD Thyroid: Thyroid normal Carotids: no bruits Chest Chest palpation & inspection: no tenderness Resp Effort & Inspection: normal respiratory effort, no audible wheezes, not labored and no stridor Auscultation: no crackles, no rales, no rhonchi and no wheezes Cardio Jugular venous distension: no JVD Rate: regular rate, not bradycardic and not tachycardic Rhythm: regular rhythm Bruits: no carotid bruits Peripheral pulses: Peripheral pulses 2+ throughout GI Inspection: Yes normal to inspection, No abdominal wall ecchymosis and No visible herniation Palpation (GI): Soft to palpation, nontender, no guarding, not rigid and No hepatosplenomegaly present Auscultation: normoactive bowel sounds General: Yes no CVA tenderness Back/Spine/Pelvis Back: no CVA tenderness and No back tenderness Cervical Spine: cervical ROM normal Thoracic/Lumbar Spine: thoracic and lumbar spine normal to inspection, straight leg raise negative bilaterally, No thoraco-lumbar ROM limited and No lumbar spinal tenderness Skin Lesions: no lesions Rashes: no rashes Wounds: no wounds Neuro General: oriented to person, oriented to place, patient oriented x3, CN's II-XI intact bilaterally and No confusion Cranial nerves: Yes Equal, round and reactive pupils present and Yes Normal accommodation reflex present Cognition (Neuro): normal cognition Speech: No Abnormal speech present Gait exam (Neuro): Normal gait present Motor exam (neuro): 5/5 motor strength present throughout Extrem Right upper extremity: full ROM; no cyanosis Left upper extremity: full ROM; no cyanosis Right lower extremity: no edema Left lower extremity: no edema Psych Appearance: grossly normal Mental Status: mental status grossly normal Affect: normal affect Attitude: cooperative Thought process: Normal thought process present Coding Level of Care Code Est Pt Prev Care >65y(33746) Diagnoses Annual physical exam Z00.00 Primary hypertension I10 Hypertension type: primary hypertension Stented coronary artery Z95.5 Mixed hyperlipidemia E78.2 Hyperlipidemia type: mixed hyperlipidemia PAF (paroxysmal atrial fibrillation) I48.0 Elevated liver enzymes R74.8 Additional Codes PHQ-9 - 12723 - PHQ-9 Billing: Yes ([id number]) MELITON-7 Assessment Billing - MELITON-7 Assessment Tool: MELITON-7 Assessment 49192 ([id number]) Assessment & Plan Assessment & Plan (1) Annual physical exam: Code(s): Z00.00 - Encounter for general adult medical examination without abnormal findings Category: Medical Plan: As per HPI (2) HTN (hypertension): Code(s): I10 - Essential (primary) hypertension Category: Medical Qualifiers: Hypertension type: primary hypertension Qualified Code(s): I10 - Essential (primary) hypertension Plan: Patient's blood pressure acceptable today in office. Will continue current dose of metoprolol. Goal blood pressures to remain below 140/90 (3) Stented coronary artery: Code(s): Z95.5 - Presence of coronary angioplasty implant and graft Category: Surgical Plan: Patient continues to follow cardiology. Continues on moderate dose that and and antiplatelet therapy with good effect. No overt signs of bleeding. Goal LDL to be optimally below 70. (4) HLD (hyperlipidemia): Code(s): E78.5 - Hyperlipidemia, unspecified Category: Medical Qualifiers: Hyperlipidemia type: mixed hyperlipidemia Qualified Code(s): E78.2 - Mixed hyperlipidemia Plan: Patient's most recent lipid panel showing fairly good control of his total cholesterol and LDL. (5) PAF (paroxysmal atrial fibrillation): Code(s): I48.0 - Paroxysmal atrial fibrillation Category: Medical Plan: Followed by [facility]. Continues to be rate controlled on metoprolol 50 mg extended release. Patient is anticoagulated with Eliquis without any overt signs of bleeding. (6) Elevated liver enzymes: Code(s): R74.8 - Abnormal levels of other serum enzymes Category: Medical Plan: Continues to have slightly elevated liver enzymes. Suspect fatty liver, patient willing to do abdominal ultrasound to confirm. Orders: Orders Lipid Panel 02/20/25 E78.2 - Mixed hyperlipidemia Complete Blood Count no Diff 02/20/25 E78.2 - Mixed hyperlipidemia Prostate Specific Antigen Scr 02/20/25 E78.2 - Mixed hyperlipidemia, Z12.5 - Encounter for screening for malignant neoplasm of prostate US abdomen complete 02/20/25 K76.0 - Fatty (change of) liver, not elsewhere classified Comprehensive Deep Water. Panel Fast 02/20/25 E78.2 - Mixed hyperlipidemia Patient Instructions: Goal: LDL to remain below 70, blood pressure to remain below 140/90. Barriers: Adherence to physical activity and healthy eating habits
[2025-02-20 09:04] VITALS: BP 130/70; PULSE 45; TEMP 36.3; O2SAT 96; BMI 29.0
--- OUTSIDE RECORDS SUMMARY | 2025-02-20 09:20 | XMS_ITS ---
Author Organization [facility] Address [address] [place] [address] Care Team Providers Care Cargo Mate Name Role Phone Dexter Patricia Primary Care Provider Unavailab Robb Miller Unavailable [phone] REASON FOR VISIT screening Encounters Encounter Location Date Provider Diagnosis [facility] [address] [place], [place] [id number] 12/28/2024 Robb Duarte Colon cancer scree stephany [...] hemorrhoids (ICD-10 - K64.8) Plan Of Treatment No Information Progress Notes * PENNY BARBOZAOB: 0 (75 yo M)Acc No.[id number]:12/28/2024 COLON WITH MAC Patient:?AMBERLY BARBOZAEL Provider:?Robb Duarte MD :1950???Age:74 Y???Sex:Male Ken e:12/28/2024 Address:[address] [place], [place] [id number] Pcp:Dexter Patricia Subjective: * Chief Complaints: * ???1. Screening. * Medical History:? Objective: * Vitals:? Assessment: * Assessment: 1.?Colon cancer screening - Z12.11 (Primary)???2.?Diverticulosis of large intestine without perforation or abscess without bleeding - K57.30???3.?Other hemorrhoids - K64.8??? Plan: * Treatment: * Procedure Codes:?G0121 COLOR EC CNCR SCR;COLNSCPY NO HI RSK * * The named appointment provid er may or may not be the originator of this progress note, and it is not deemed complete until electronically signed by the appointment provider. Sign off status: Pending * Provider:?Robb Duarte MD Date:? 025 Generated for Rajiv peralta/Tristan/Inasmitting on:?02/20/2025 09:19 AM EDT
--- OUTSIDE RECORDS SUMMARY | 2025-02-20 09:20 | XMS_ITS ---
Author Organization [facility] Address [address] [place] [address] Care Team Providers Care Brim Stretching Machine Operator Name Role Phone Dexter Patricia Primary Care Provider UnavailRobb Sahu [phone] Allergies Allergen (clinical drug ingredient) Drug/Non Drug [...] Status Risk Notes Problem Colon cancer screening ([id number]) Colon cancer screening (Z12.11) Active confirmed Problem Long-term current use of anticoagulant ([id number]) Anticoagulant long-term use (Z79.01) Active confirmed Problem Pre-procedure evaluation check ([id number]) Encounter for other preprocedural examination (Z01.818) Active confirmed Vital Signs Blood pressure systolic 00 mm Hg 08/30/20 24 Blood pressure diastolic 00 mm Hg 024 Height 72.5 in 08/30/2024 Weight 210 lbs 08/30/2024 BMI 28.09 kg/m2 08/30/2024 Encounters Encounter Location Date Provider Diagnosis [facility] [address] [place] [address] 08/30/2024 Robb Duarte Colon cancer screeni ng [...] 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 I did advise him to [...] * PENNY BARBOZAOB: 0 (74 yo M)Acc No.[id number]:08/30/2024 Progress Notes Patient:?YOMI BARBOZA Provider:?Robb Duarte MD :1950???Age:74 Y???Sex:Male Ken e:08/30/2024 Address:[address] [place], [place] [id number] Pcp:Dexter Patricia Subjective: * Chief Complaints: * ???Patient presents today fo r a SCREENING COLON * HPI: ???incontinence:? I saw Yomi in the office today for evaluation of colorectal cancer screening. ?I last saw Yomi in May of 2014, at which time he underwent a negative screening colonoscopy. He presently feels well. He enjoys a good appetite, without any significant heartburn or dysphagia. His bowel movements have been regular and without any signs of bleeding. He denies abdominal pain, jaundice, nor unintentional weight loss. He denies any known family history of colon cancer. ?He is on long-standing Eliquis for atrial fibrillation. He was started on clopidogrel in November for a coronary artery stent placement but reports that he was advised that he will be able to stop that in November of 2024 as long as things remain stable. * ROS:?General/Constitutional:?Change in appetite?denies.?Chills?denies.?Fatigue?denies.?Ophthalmologic:?Comments?all negative.?ENT:?Comments?all negative.?Respiratory:?hemoptysis?denies.?Cough?denies.?Cardiovascular:?Chest pain?denies.?Orthopnea?denies.?Gastrointestinal:?Comments?See HPI for details.?Genitourinary:?Hematuria?denies.?Dysuria?denies.?Musculoskeletal:?Patient complaining of?Back/neck pain, arthritis.?Weakness?denies.?Skin:?Itching?denies.?Rash?denies.?Neurologic:?Headache?denies.?Seizures?denies.?Psychiatric:?Comments?all negative.? * Medical History:? * Surgical History:?Hernia rep air-bilateral inguinal Umbilical hernia repair * Hospitalization/Major Diagno stic Procedure:?No Hospitalization History. * Family History:?Father: dece ased.?Mother: , diagnosed with HTN (hypertension).?Siblings: diagnosed with HTN (hypertension).? * Social History:?Tobacco Use:?Tobacco Use/Smoking?Are you a: nonsmoker.?Drugs/Alcohol:?Alcohol Screen?Points: 2, Interpretation: Negative.?Miscellaneous:?Marital status: . 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 ???Nonsmoker; 3 beers 2-3 times per week Drinks soy milk--no caffeine. * Medications:?TakingMetoprolo l Succinate ER Lovastatin Eliquis 5 MG Tablet [...] Once a dayHyoscyamine Sulfate 0.125 MG Tablet 1- 2 tablets Orally Q 4-6 hours prn abdominal [...] reviewed and reconciled with the patient * Allergies:?PenicillinAtorvas tatin: altered moodadhesive tapeyes[Allergies Verified] Objective: * Vitals:?Wt: 210 lbs, Ht: 72. 5 in, BMI:28.09 Index, BP: 00/00 mm Hg. * Examination: ???General Examination: ?GENERAL APPEARANCE:?pleasant, well nourished, well developed, in no acute distress.?EYES:?sclera non-icteric.?ORAL CAVITY:?mucosa moist.?NECK/THYROID:?no cervical lymphadenopathy, neck supple.?SKIN:?nonjaundiced, no spider angiomata.?HEART:?S1, S2 normal.?LUNGS:?clear to auscultation bilaterally.?ABDOMEN:?normal bowel sounds, no guarding or rigidity, no guarding or rigidity, no masses palpable, soft, nontender, nondistended.?EXTREMITIES:?no edema.?NEUROLOGIC:?alert and oriented.? Assessment: * Assessment: 1.?Anticoagulant long-term u se - Z79.01 (Primary)?2.?Colon cancer screening - Z12.11?3.?Encounter for other preprocedural examination - Z01.818? Overall, Yomi appears quit e well. 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 I did advise him to [...] coming up let me know?? * Procedure Codes:?3017F COLOR ECTAL CA SCREEN DOC [id number] TOBACCO [id number] BP SCR NOT PRFRM REC REASON NOS * Preventive Medicine:? ??Counseling:?Care goal follow-up plan:?Above Normal BMI Follow-up?Giving encouragement to exercise,?BMI management provided?Yes.? ??Screenings:?Fall Risk Screening?Fall Risk Assessment:?No falls in the past year,?Screening:?No falls in the past year,?Assessment:?Not performed, no reason specified,?Plan of Care:?Not documented, no reason specified.? * Follow Up:?prn * * Sign off status: Completed true * Provider:?Robb Duarte MD Date:? 024 Generated for Rajiv peralta/Tristan/eTransmitting on:?02/20/2025 09:19 AM EDT History and Physical Notes * [...]
--- OUTSIDE RECORDS SUMMARY | 2025-02-20 09:20 | XMS_ITS | Patient Health Record ---
Author Organization [facility] Address [address] [place] [address] Care Team Providers Care Coal Cutting Machine Operator Name Role Phone Dexter Patricia Primary Care Provider Unavailab Robb Miller [phone] Allergies Allergen (clinical drug ingredient) Drug/Non Drug Allergy documented on EMR Reaction Allergy Type Onset Date Status atorvastatin Atorvastatin altered mood Drug Allergy Active Penicillin Unknown Drug Allergy Active adhesive tape (uncoded) Unknown Allergy Active Reason For Referral No Information Medications Medication SIG (Take, Route, Frequency, Duration) [...] Status Risk Notes Problem Colon cancer screening (658446153) Colon cancer screening (Z12.11) Active confirmed Problem Pre-procedure evaluation check (056037093) Encounter for other preprocedural examination (Z01.818) Active confirmed Problem Long-term current use of anticoagulant (153846286) Anticoagulant long-term use (Z79.01) Active confirmed Vital Signs Blood pressure diastolic 00 mm Hg 08/30/2024 Height 72.5 in 08/30/2024 Blood pressure systolic 00 mm Hg 08/30/2024 Weight 210 lbs 08/30/2024 BMI 28.09 kg/m2 08/30/2024 Encounters Encounter Location Date Provider Diagnosis [facility] Outpatient [address] [place] [id number] 12/28/2024 Robb Duarte Colon cancer screeni ng Z12.11 ; Diverticulosis of large intestine without perforation or abscess without bleeding K57.30 and Other hemorrhoids K64.8 [facility] [address] [place] [address] 08/30/2024 Robb Duarte Colon cancer screeni ng Z12.11 ; Anticoagulant long-term use Z79.01 and Encounter for other preprocedural examination Z01.818 Assessments Encounter Date Diagnosis (ICD Code) Assessment Notes Treatment Notes Treatment Clinical Notes Section Notes 12/28/2024 Colon cancer screening (ICD-10 - Z12.11) 12/28/2024 Diverticulosis of large intestine without perforation or abscess without bleeding (ICD-10 - K57.30) 08/30/2024 Colon cancer screening (ICD-10 - Z12.11) [...] shall also obtain a clearance from his certified hearing instrument dispenser as well. I did advise him to [...] shall also obtain a clearance from his certified hearing instrument dispenser as well. I did advise him to [...] to keep you advised of his progress. 12/28/2024 Other hemorrhoids (ICD-10 - K64.8) 08/30/2024 Encounter for other preprocedural examination (ICD-10 [...] shall also obtain a clearance from his certified hearing instrument dispenser as well. I did advise him to [...] advised of his progress. Plan Of Treatment Future Test Test Name Order Date COLONOSCOPY 04/11/2014 COLONOSCOPY 08/30/2024 Insurance Providers Payer Name Payer Address Payer Phone Subscriber Number Group Number Insured Name Patient Relationship to Insured Coverage Start Date Coverage End Date MEDICARE OF [place] [address] [place] [address] [id number] YOMI BARBOZA Self - patient is the insured MEDEX ATTN CLAIMS [address] [place] [address] [phone] [id number] YOMI BARBOZA Self - patient is the insured Medical (General) History Medical History History ICD Code Paroxysmal Atrial Fibrillation Denies SD,DM,CVA,Lung disease,renal dise ase Neg. screening colonoscopy with Dr. Kerline gibbons in 02/2005 Hyperlipidemia CAD with 1 stent placed in 11/2023--sees Dr. Lowe Negative colonoscopy in 05/2014 with me Surgical History Surgery Date(Month/Year) Hernia repair-bilateral inguinal Umbilical hernia repair
== END 2025-02-20 09:45 | disposition home or self-care (01) ==
PROVIDERS: PCP Physician Assistant; Visit Provider Physician Assistant
DX: I48.0 Paroxysmal atrial fibrillation (principal); I10 Essential (primary) hypertension; Z95.5 Presence of coronary angioplasty implant and graft; E78.2 Mixed hyperlipidemia; R74.8 Abnormal levels of other serum enzymes

== ENCOUNTER → 2025-04-03 08:49 | Outpatient (REF) | payer MEDICARE, SELFPAY ==
--- NOTE | 2025-04-03 08:52 | CA_ITS ---
Transthoracic Echocardiogram Patient (Last, First, Middle): Yomi Duncan, Gender: Male Date of : 1950 Age: 75 Procedure Date: 04/04/2025 Procedure Type: Transthoracic Echocardiogram Location: OP Height: 185.42 cm Weight: 92.99 kg BSA: 2.17 m2 Heart Rate: bpm BP: 124 / 80 mmHg Referring MD: Mani Lowe MD Symptoms: Ascending Aorta Dilatation Study Quality: Fair ECG Rhythm: Sinus Conclusions: - Top normal ascending aortic size at 3.8/3.9 cm. Findings Great Vessels Top normal ascending aortic size at 3.8/3.9 cm. Prior Study Comparison No significant change compared to prior study dated: 04/03/2025. Measurements 2D Linear Measurements IVSd: 1.51 0.6-0.9/0.6-1.0 cm LVIDd: 5.27 3.9-5.3/4.2-5.9 cm LVIDd Index: 2.43 2.4-3.2/2.2-3.1 cm/m2 LVIDs: 3.26 2.0-3.6 cm LVPWd: 1.32 0.7-1.1 cm Ao Root: 3.50 2.1-3.5 cm LV Mass: 400.48 67-162/88-224 g LV Mass Index: 184.55 43-95/49-115 g/m2 2D Systolic Function EF 4C: 56.80 >55% EF 2C: 53.60 >55% Great Vessels Aorta Ao Root-2D: 3.50 2.0-3.7 cm Ao Asc: 3.80 2.1-3.4 cm Updated in Other Vendor System with Status of Final Mani Lowe MD electronically signed on 04/04/2025 3:19:54 PM with status of Final
--- OUTSIDE RECORDS SUMMARY | 2025-04-03 09:14 | XMS_ITS ---
Author Organization [facility] Address [address] [place] [address] Care Team Providers Care Computator Name Role Phone Dexter Patricia Primary Care Provider Unavailab Robb Miller [phone] Allergies Allergen (clinical drug ingredient) Drug/Non Drug [...] Status Risk Notes Problem Colon cancer screening (693806207) Colon cancer screening (Z12.11) Active confirmed Problem Anticoagulant long-term use (Z79.01) Active confirmed Problem Pre-procedure evaluation check (279699426) Encounter for other preprocedural examination (Z01.818) Active confirmed Vital Signs Blood pressure systolic 00 mm Hg 08/30/20 24 Blood pressure diastolic 00 mm Hg 024 Height 72.5 in 08/30/2024 Weight 210 lbs 08/30/2024 BMI 28.09 kg/m2 08/30/2024 Encounters Encounter Location Date Provider Diagnosis [facility] [address] [place] [address] 08/30/2024 Robb Duarte Colon cancer screeni ng [...] shall also obtain a clearance from his ammonium nitrate crystallizer as well. I did advise him to [...] shall also obtain a clearance from his ammonium nitrate crystallizer as well. I did advise him to [...] shall also obtain a clearance from his ammonium nitrate crystallizer as well. I did advise him to [...] * PENNY BARBOZAOB: 0 (74 yo M)Acc No.[id number]:08/30/2024 Progress Notes Patient:?YOMI BARBOZA Provider:?Robb Duarte MD :1950???Age:74 Y???Sex:Male Ken e:08/30/2024 Address:[address] [place], [place] [id number] Pcp:Dexter Patricia Subjective: * Chief Complaints: * [...] shall also obtain a clearance from his ammonium nitrate crystallizer as well. I did advise him to [...] Procedure Codes:?3017F COLOR ECTAL CA SCREEN DOC [id number] TOBACCO NON-[id number] BP SCR NOT PRFRM REC REASON NOS [...] Duarte MD Date:? 024 Generated for Rajiv peralta/Tristan/Kerri on:?04/03/2025 09:14 AM EDT History and Physical Notes * [...]
== END ==
LOC: HO.CARD 08:49
PROVIDERS: PCP Physician Assistant; Visit Provider Internal Medicine
DX: I77.89 Other specified disorders of arteries and arterioles (principal)
CPT/HCPCS: 93308

== ENCOUNTER → 2025-04-03 08:52 | Outpatient (BNV) | payer MEDICARE, SELFPAY | PROVIDERS: PCP Physician Assistant; Visit Provider Internal Medicine | DX: I71.21 Aneurysm of the ascending aorta, without rupture (principal) | CPT/HCPCS: 93308 ==

== ENCOUNTER 2025-04-04 12:21 | Outpatient (REF) | payer MEDICARE, SELFPAY ==
--- NOTE | ~2025-04-04 | US_ITS ---
CLINICAL HISTORY: K76.0 - Fatty (change of) liver, not elsewhere classified US abdomen complete Comparison: None Findings: Suboptimal exam due to body habitus. The visualized pancreas head is normal. The visualized aorta and inferior vena cava are normal caliber. The liver is probably normal in size, length is not measured at the mid clavicular line by the senior technical project manager. Diffusely increased echogenicity, no focal lesion is identified. No intrahepatic bile duct dilatation. The common duct is 3 mm in diameter. The gallbladder is normal. Negative sonographic Patel sign. The main portal vein is patent with antegrade flow. The right kidney is normal, 11.6 cm in length. The left kidney is normal, 11.8 cm in length. The spleen is normal, 12.0 cm in length. No free fluid in the abdomen. Impression: Echogenic liver parenchyma, non-specific, commonly seen in patient with steatosis or chronic hepatitis. This document has been electronically signed by: Tiana Dougherty MD on 04/05/2025 11:42:23
--- OUTSIDE RECORDS SUMMARY | 2025-04-04 13:58 | XMS_ITS ---
Author Organization [facility] Address [address] [place] [address] Care Team Providers Care Fur Finisher Tailor Name Role Phone Dexter Patricia Primary Care Provider UnavailRobb Sahu [phone] Allergies Allergen (clinical drug ingredient) Drug/Non Drug [...] Status Risk Notes Problem Colon cancer screening (342919628) Colon cancer screening (Z12.11) Active confirmed Problem Long-term current use of anticoagulant (317733795) Anticoagulant long-term use (Z79.01) Active confirmed Problem Pre-procedure evaluation check (401160700) Encounter for other preprocedural examination (Z01.818) Active confirmed Vital Signs Blood pressure systolic 00 mm Hg 08/30/20 24 Blood pressure diastolic 00 mm Hg 024 Height 72.5 in 08/30/2024 Weight 210 lbs 08/30/2024 BMI 28.09 kg/m2 08/30/2024 Encounters Encounter Location Date Provider Diagnosis [facility] [address] [place] [address] 08/30/2024 Robb Duarte Colon cancer screeni ng [...] shall also obtain a clearance from his process improvement specialist as well. I did advise him to [...] shall also obtain a clearance from his process improvement specialist as well. I did advise him to [...] shall also obtain a clearance from his process improvement specialist as well. I did advise him to [...] * PENNY BARBOZAOB: 0 (74 yo M)Acc No.[id number]:08/30/2024 Progress Notes Patient:?YOMI BARBOZA Provider:?Robb Duarte MD :1950???Age:74 Y???Sex:Male Ken e:08/30/2024 Address:[address] [place], [place] [id number] Pcp:Dexter Patricia Subjective: * Chief Complaints: * [...] shall also obtain a clearance from his process improvement specialist as well. I did advise him to [...] Procedure Codes:?3017F COLOR ECTAL CA SCREEN DOC [id number] TOBACCO NON-[id number] BP SCR NOT PRFRM REC REASON NOS [...] MD Date:? 024 Generated for Rajiv peralta/Tristan/eTransmitting on:?04/04/2025 01:58 PM EDT History and Physical Notes * HPI [...]
== END 2025-04-04 12:22 | disposition home or self-care (01) ==
LOC: HO.US 12:21
PROVIDERS: PCP Physician Assistant; Visit Provider Physician Assistant
DX: K76.0 Fatty (change of) liver, not elsewhere classified (principal)
CPT/HCPCS: 76700

== ENCOUNTER → 2025-04-04 12:22 | Outpatient (BNV) | payer MEDICARE, SELFPAY | PROVIDERS: PCP Physician Assistant; Visit Provider Radiology Diagnostic Radiology | DX: K76.89 Other specified diseases of liver (principal) | CPT/HCPCS: 76700 ==

== ENCOUNTER 2025-04-06 08:16 | Outpatient (AMB) | payer MEDICARE, SELFPAY ==
--- OUTSIDE RECORDS SUMMARY | 2024-08-30 05:50 | XMS_ITS ---
Author Organization [facility] Address [address] [place] [address] Care Team Providers Care Seismograph Shooter Name Role Phone Dexter Patricia Primary Care Provider Unavailab Robb Miller [phone] Allergies Allergen (clinical drug ingredient) Drug/Non Drug Allergy documented on EMR Reaction Allergy Type Onset Date Status atorvastatin Atorvastatin altered mood Drug Allergy Active Penicillin Unknown Drug Allergy Active adhesive tape (uncoded) Unknown Allergy Active REASON FOR VISIT Patient presents today for a SCREENING COLON Medications Medication SIG (Take, Route, Frequency, Duration) Notes Start Date End Date Status Metoprolol Succinate ER Active Lovastatin Active Eliquis 5 MG TAKE 1 TABLET BY NATALIIA TH TWICE A DAY Oral for 90 Active Clopidogrel Bisulfate 75 MG TAKE 1 TABLE T BY MOUTH EVERY DAY Oral for 90 Active Problems Problem Type SNOMED Code ICD Code Onset Dates Problem Status W/U Status Risk Notes Problem Colon cancer screening (778419898) Colon cancer screening (Z12.11) Active confirmed Problem Anticoagulant long-term use (Z79.01) Active confirmed Problem Pre-procedure evaluation check (693476761) Encounter for other preprocedural examination (Z01.818) Active confirmed Vital Signs Blood pressure systolic 00 mm Hg 08/30/20 24 Blood pressure diastolic 00 mm Hg 024 Height 72.5 in 08/30/2024 Weight 210 lbs 08/30/2024 BMI 28.09 kg/m2 08/30/2024 Encounters Encounter Location Date Provider Diagnosis [facility] [address] [place] [address] 08/30/2024 Robb Duarte Colon cancer screeni ng Z12.11 ; Anticoagulant long-term use Z79.01 and Encounter for other preprocedural examination Z01.818 Assessments Encounter Date Diagnosis (ICD Code) Assessment Notes Treatment Notes Treatment Clinical Notes Section Notes 08/30/2024 Colon cancer screening (ICD-10 - Z12.11) Stop Eliquis for three days before the colonoscopy If you're not off the Clopidogrel(PL avix) when the colonoscopy is coming up let me know Overall, Yomi appears quite well. I did recommend a followup colonoscopy for further screening purposes given his age, his good clinical appearance, and his last colonoscopy being over 10 years ago. We did review the rationale for that in regard to colon cancer prevention. Full consent was obtained for this, including risks of bleeding and perforation. The procedure will be done with monitored anesthesia care. He was given the below instructions regarding adjustment of his medications for the procedure. We shall also obtain a clearance from his interior designer as well. I did advise him to let me know if he is still on clopidogrel as the procedure approaches. However, we shall be scheduling this for him in December or January 2025 so hopefully he will be off the clopidogrel by then. He was comfortable with this plan. Thank you again for allowing me to participate in Yomi's care. I shall continue to keep you advised of his progress. 08/30/2024 Anticoagulant long-term use (ICD-10 - Z79.01) Overall, Yomi appears quite well. I did recommend a followup colonoscopy for further screening purposes given his age, his good clinical appearance, and his last colonoscopy being over 10 years ago. We did review the rationale for that in regard to colon cancer prevention. Full consent was obtained for this, including risks of bleeding and perforation. The procedure will be done with monitored anesthesia care. He was given the below instructions regarding adjustment of his medications for the procedure. We shall also obtain a clearance from his interior designer as well. I did advise him to let me know if he is still on clopidogrel as the procedure approaches. However, we shall be scheduling this for him in December or January 2025 so hopefully he will be off the clopidogrel by then. He was comfortable with this plan. Thank you again for allowing me to participate in Yomi's care. I shall continue to keep you advised of his progress. 08/30/2024 Encounter for other preprocedural examination (ICD-10 - Z01.818) Overall, Yomi appears quite well. I did recommend a followup colonoscopy for further screening purposes given his age, his good clinical appearance, and his last colonoscopy being over 10 years ago. We did review the rationale for that in regard to colon cancer prevention. Full consent was obtained for this, including risks of bleeding and perforation. The procedure will be done with monitored anesthesia care. He was given the below instructions regarding adjustment of his medications for the procedure. We shall also obtain a clearance from his interior designer as well. I did advise him to let me know if he is still on clopidogrel as the procedure approaches. However, we shall be scheduling this for him in December or January 2025 so hopefully he will be off the clopidogrel by then. He was comfortable with this plan. Thank you again for allowing me to participate in Yomi's care. I shall continue to keep you advised of his progress. Plan Of Treatment Treatment Notes Assessment Notes Colon cancer screening Stop Eliquis for three days before the colonoscopy If you're not off the Clopidogrel(PLavix) when the colonoscopy is coming up let me know Future Test Test Name Order Date COLONOSCOPY 08/30/2024 Next Appt Details Follow Up: prn, Reason: Progress Notes * PENNY BARBOZAOB: 0 (74 yo M)Acc No.[id number]:08/30/2024 Progress Notes Patient: YOMI ROBLEDO Provider: Solange Duarte MD :1950 A ge:74 Y S ex:Male Date:08/30/2024 Address:[address] [place] [address] Pcp:Dexter Patricia Subjective: * Chief Complaints: * P atient presents today for a SCREENING COLON * HPI: i ncontinence: I saw Yomi in the office today for evaluation of colorectal cancer screening. I last saw Yomi in May of 2014, at which time he underwent a negative screening colonoscopy. He presently feels well. He enjoys a good appetite, without any significant heartburn or dysphagia. His bowel movements have been regular and without any signs of bleeding. He denies abdominal pain, jaundice, nor unintentional weight loss. He denies any known family history of colon cancer. Avtar ordoñez is on long-standing Eliquis for atrial fibrillation. He was started on clopidogrel in November for a coronary artery stent placement but reports that he was advised that he will be able to stop that in November of 2024 as long as things remain stable. * ROS: G eneral/Constitutional: Change in appetite d enies. C hills d enies. F atigue d enies. O phthalmologic: Comments a ll negative. E NT: Comments a ll negative. R espiratory: hemoptysis d enies. C ough d enies. ? C ardiovascular: Chest pain d enies. O rthopnea d enies. ? G astrointestinal: Comments S [facility] for details. G enitourinary: Hematuria d enies. D ysuria d enies. ? M usculoskeletal: Patient complaining of B ack/neck pain, arthritis. W eakness d enies. S kin: Itching d enies. R cecilio d enies. N eurologic: Headache d enies. S eizures d enies. ? P sychiatric: Comments a ll negative. * Medical History: * Surgical History: H ernia repair-bilateral inguinal Umbilical hernia repair * Hospitalization/Major Diagno stic Procedure: N o Hospitalization History. * Family History: F ather: . M other: , diagnosed with HTN (hypertension). S iblings: diagnosed with HTN (hypertension). * Social History: T obacco Use: T obacco Use/Smoking A re you a: nonsmoker. D rugs/Alcohol: A lcohol Screen P oints: 2, Interpretation: Negative. M iscellaneous: M arital status: . 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 N onsmoker; 3 beers 2-3 times per week Drinks soy milk--no caffeine. * Medications: T akingMetoprolol Succinate ER Lovastatin Eliquis 5 MG Tablet TAKE 1 TABLET BY MOUTH TWICE A DAY Oral Clopidogrel Bisulfate 75 MG Tablet TAKE 1 TABLET BY MOUTH EVERY DAY Oral Taking Metoprolol Succinate ER Taking Lovastatin Taking Eliquis 5 MG Tablet TAKE 1 TABLET BY MOUTH TWICE A DAY Oral Taking Clopidogrel Bisulfate 75 MG Tablet TAKE 1 TABLET BY MOUTH EVERY DAY Oral DiscontinuedAspir-81 81 MG Tablet Delayed Release 1 tablet Orally Once a dayHyoscyamine Sulfate 0.125 MG Tablet 1-2 tablets Orally Q 4-6 hours prn abdominal pain/bloatingMoviPrep 100 GM Solution Reconstituted as directed Orally as directedMedication List reviewed and reconciled with the patientDiscontinued Aspir-81 81 MG Tablet Delayed Release 1 tablet Orally Once a dayDiscontinued Hyoscyamine Sulfate 0.125 MG Tablet 1-2 tablets Orally Q 4-6 hours prn abdominal pain/bloatingDiscontinued MoviPrep 100 GM Solution Reconstituted as directed Orally as directedMedication List reviewed and reconciled with the patient * Allergies: P enicillinAtorvastatin: altered moodadhesive tapeyes[Allergies Verified] Objective: * Vitals: W t: 210 lbs, Ht: 72.5 in, BMI:28.09 Index, BP: 00/00 mm Hg. * Examination: G eneral Examination: GENERAL APPEARANCE: p leasant, well nourished, well developed, in no acute distress. EYES: s clera non-icteric. ORAL CAVITY: m ucosa moist. NECK/THYROID: n o cervical lymphadenopathy, neck supple.? SKIN: n onjaundiced, no spider angiomata. HEART: S 1, S2 normal. LUNGS: c lear to auscultation bilaterally. ABDOMEN: n ormal bowel sounds, no guarding or rigidity, no guarding or rigidity, no masses palpable, soft, nontender, nondistended. EXTREMITIES: n o edema. NEUROLOGIC: a lert and oriented. Assessment: * Assessment: 1. A nticoagulant long-term use - Z79.01 (Primary) 2 . C olon cancer screening - Z12.11?3. E ncounter for other preprocedural examination - Z01.818 Overall, Yomi appears quit e well. I did recommend a followup colonoscopy for further screening purposes given his age, his good clinical appearance, and his last colonoscopy being over 10 years ago. We did review the rationale for that in regard to colon cancer prevention. Full consent was obtained for this, including risks of bleeding and perforation. The procedure will be done with monitored anesthesia care. He was given the below instructions regarding adjustment of his medications for the procedure. We shall also obtain a clearance from his interior designer as well. I did advise him to let me know if he is still on clopidogrel as the procedure approaches. However, we shall be scheduling this for him in December or January 2025 so hopefully he will be off the clopidogrel by then. He was comfortable with this plan. Thank you again for allowing me to participate in Yomi's care. I shall continue to keep you advised of his progress. Plan: * Treatment: Notes: Stop Eliquis for three days before the colonoscopy If you're not off the Clopidogrel(PLavix) when the colonoscopy is coming up let me know?? * Procedure Codes: 3 017F COLORECTAL CA SCREEN DOC [id number] TOBACCO [id number] BP SCR NOT PRFRM REC REASON NOS * Preventive Medicine: Counseling: C are goal follow-up plan: A daniel Normal BMI Follow-up G iving encouragement to exercise, B OH management provided Y es. Screenings: F all Risk Screening F all Risk Assessment: N o falls in the past year, S creening: N o falls in the past year, A ssessment: N ot performed, no reason specified, P lamont of Care: N ot documented, no reason specified. * Follow Up: p rn * * Sign off status: Completed true * Provider: Solange Duarte MD Date: 1 10/30/2023 Generated for Rajiv peralta/Tristan/Darrenitting on: 0 04/06/2025 08:20 AM EDT History and Physical Notes * HPI (History of Present Illness) Category Sub-Category Detail Notes Category Not es incontinence I saw Yomi in the office today for evaluation of colorectal cancer screening. I last saw Yomi in May of 2014, at which time he underwent a negative screening colonoscopy. He presently feels well. He enjoys a good appetite, without any significant heartburn or dysphagia. His bowel movements have been regular and without any signs of bleeding. He denies abdominal pain, jaundice, nor unintentional weight loss. He denies any known family history of colon cancer. He is on long-standing Eliquis for atrial fibrillation. He was started on clopidogrel in November for a coronary artery stent placement but reports that he was advised that he will be able to stop that in November of 2024 as long as things remain stable. Examination Category Sub-Category Detail Notes Category Not es General Examination GENERAL APPEARANCE: pleasant , well nourished, well developed, in no acute distress HEAD: EYES: sclera non-icteric EARS: NOSE: THROAT: NECK/THYROID: no cervical lymphade nopathy, neck supple HEART: S1, S2 normal CHEST: LUNGS: clear to auscultatio n bilaterally ABDOMEN: normal bowel sounds, no guarding or rigidity, no guarding or rigidity, no masses palpable, soft, nontender, nondistended NEUROLOGIC: alert and oriented SKIN: nonjaundiced, no spi quang angiomata EXTREMITIES: no edema PERIPHERAL PULSES: BACK: BREASTS: MUSCULOSKELETAL: MALE GENITOURINARY: LYMPH NODES: RECTAL EXAM: FEMALE GENITOURINARY: ORAL CAVITY: mucosa moist
--- NOTE | 2025-04-06 08:26 | MHC.OFFVIS ---
Vital Signs 04/06/25 08:28 Height 6 ft Weight 208 lb 15.971 oz BMI 28.3 BP 110/60 Blood Pressure Location Lt brachial Position Sitting Pulse 55 Pulse Source Pulse Oximeter Intake Visit Reasons: 6 mth f/up Belt Glass Sander Required: No Accompanied by: Self / Same As Patient Allergies adhesive tape (ADHESIVE TAPE) Allergy (Intermediate, Verified 02/20/25 09:21) HIVES Penicillins (PENICILLINS) Allergy (Unknown, Verified 02/20/25 09:21) UNKNOWN REACTION-CHILDHOOD ALLERGY atorvastatin Adverse Reaction (Intermediate, Verified 02/20/25 09:21) Altered Mood heart monitor electrodes Allergy (Intermediate, Uncoded 02/20/25 09:21) Hives (if on for extended time frame) Medication List - Last Reconciled 04/06/25 by Mani Lowe MD apixaban (Eliquis) 5 mg PO BID 90 days lovastatin 40 mg PO DAILY metoprolol succinate ER 50 mg PO DAILY HPI Comments Details: Yomi returns for follow-up of atrial fibrillation as well as coronary artery disease. In 2016, he underwent THOMAS/cardioversion. In that regard, he has been fairly stable for years. He is maintained on metoprolol and Eliquis. During prior visit, he was complaining of some exertional throat tightness. Stress test unremarkable but it felt like an anginal equivalent and hence he underwent cardiac catheterization with LAD stenting. Since last seen, he states he is doing fine. He has got absolutely no cardiac symptoms. [facility] Medical History History of cardioversion Polyarthritis Elevated cholesterol HTN (hypertension) Anticoagulated Eustachian tube dysfunction Ascending aorta dilatation Atherosclerotic cardiovascular disease Sinus bradycardia PAF (paroxysmal atrial fibrillation) Surgical History History of left inguinal hernia (11/27/22) Hx of cardiac catheterization History of colonoscopy (02/24/09) History of hemorrhoidectomy (04/05/19) History of right inguinal hernia repair (03/05/12) History of left inguinal hernia repair (09/04/11) History of umbilical hernia repair Family History Father CHF (congestive heart failure) Mother Hypertension Osteoarthritis Social History Household Members: Spouse Housing: House Are you a primary career technology teacher to a significant other at home: No Do you presently have visiting nurse or other home services: No 75 years or older and lives alone: No Alcohol intake: current Alcohol intake frequency: a few times a week Alcohol type: beer Patient Tobacco Use Status: Never used Tobacco e-Cigarette/Vaping Use: Never Used Second Hand Smoke Exposure: Yes service: Yes Current occupational status: retired Cognitive needs: Yes Hearing needs: No Vision needs: Yes (Reading glasses) Review of Systems Const Denies chills, Denies fatigue, Denies fever(s), Denies frequent falls, Denies weakness, Denies weight gain and Denies weight loss ENT Denies dizziness Card Denies chest pain, Denies leg edema, Denies lightheadedness, Denies palpitations, Denies dyspnea and Denies dyspnea on exertion Resp Denies cough, Denies dyspnea and Denies dyspnea on exertion GI Denies hematochezia Musc Denies abnormal gait, Denies muscle weakness, Denies numbness, Denies radiating pain into limb and Denies tingling Neuro Denies abnormal gait, Denies dizziness, Denies frequent falls, Denies numbness, Denies tingling and Denies weakness Endo Denies fatigue and Denies palpitations Physical Exam Vital Signs: Last Vital Signs Pulse 55 04/06/25 08:28 BP 110/60 04/06/25 08:28 BMI result Body Mass Index 28.3 Const General: comfortable and no acute distress Orientation/consciousness: patient oriented x3 HEENT Other: Unremarkable Head: Yes normal to inspection Neck Neck: Yes normal visual inspection Chest Chest palpation & inspection: normal inspection of the chest Resp Auscultation: clear to auscultation bilaterally Cardio Palpation: normal PMI Heart sounds: S1 normal heart sound present, S2 normal heart sound present, no gallops, no murmurs and no rubs GI Palpation (GI): Soft to palpation Back/Spine/Pelvis Other: unremarkable Skin General skin exam: no rashes or lesions noted Neuro General: patient oriented x3 Extrem General: Yes normal to inspection Psych Mental Status: mental status grossly normal Assessment & Plan Assessment & Plan (1) Atherosclerotic cardiovascular disease: Code(s): I25.10 - Atherosclerotic heart disease of [place] coronary artery without angina pectoris Category: Medical Plan: Cardiac catheterization data reviewed -10/2023. 80% mid LAD lesion status post PCI. Otherwise, intermediate grade lesions in the proximal and distal LAD. No significant findings and left main, circumflex or RCA. No anginal symptoms. He is on lowest statin as he states he cannot take any other statins due to side effects. LDL levels are in the 70s, 80s. (2) PAF (paroxysmal atrial fibrillation): Code(s): I48.0 - Paroxysmal atrial fibrillation Category: Medical Plan: Continue beta-blockers. Continue anticoagulation. Remote history of abnormal LFTs with ? Multaq (3) Sinus bradycardia: Code(s): R00.1 - Bradycardia, unspecified Category: Medical Plan: No specific symptoms. Hence can continue beta-blockers. (4) Ascending aorta dilatation: Code(s): I77.810 - Thoracic aortic ectasia Category: Medical Plan: Variable measurements. In the most recent study about 3.8/3.9 cm. Prior to that, not well visualized. Prior to that, 4.2 cm. We will recheck in a year. If necessary, we can get a CTA. Plan Discussion Notes I discussed with the patient the continuation of his current medication regimen, which he tolerates well. We reviewed the results of his recent cardiovascular ultrasound, which showed no concerning abnormalities, and planned for an annual follow-up with an echocardiogram. Patient was informed and verbally consented to the use of an ambient scribe for clinic note documentation during this visit. Orders: Orders CA echo transthoracic complete 1 Year I77.89 - Other specified disorders of arteries and arterioles Patient Instructions: - Continue current medications as prescribed. - Schedule and attend annual cardiovascular ultrasound. - Follow up in one year with an echocardiogram. Coding Level of Care Code Est Pt Level 4 (63650) Complex EM visit Add On G2211 Diagnoses Atherosclerotic cardiovascular disease I25.10 PAF (paroxysmal atrial fibrillation) I48.0 Sinus bradycardia R00.1 Ascending aorta dilatation I77.810
[2025-04-06 08:28] VITALS: BP 110/60; PULSE 55; BMI 28.3
== END 2025-04-06 08:43 | disposition home or self-care (01) ==
PROVIDERS: PCP Physician Assistant; Visit Provider Internal Medicine
DX: I25.10 Atherosclerotic heart disease of native coronary artery without angina pectoris (principal); I48.0 Paroxysmal atrial fibrillation; R00.1 Bradycardia, unspecified; I77.810 Thoracic aortic ectasia
CPT/HCPCS: 99214; G2211

== ENCOUNTER → 2025-04-06 08:16 | Outpatient (BNVA) | payer MEDICARE, SELFPAY | PROVIDERS: PCP Physician Assistant; Visit Provider Internal Medicine | DX: I25.10 Atherosclerotic heart disease of native coronary artery without angina pectoris (principal); I48.0 Paroxysmal atrial fibrillation; I77.810 Thoracic aortic ectasia; R00.1 Bradycardia, unspecified | CPT/HCPCS: 99212 ==

== ENCOUNTER 2025-08-18 07:21 | Outpatient (REF) | payer MEDICARE, SELFPAY ==
--- OUTSIDE RECORDS SUMMARY | 2024-12-28 04:20 | XMS_ITS ---
Author Organization [facility] Address [address] [place] [address] Care Team Providers Care Stonemason Supervisor Name Role Phone Dexter Patricia Primary Care Provider UnavailRobb Sahu [phone] REASON FOR VISIT screening Encounters Encounter Location Date Provider Diagnosis [facility] [place] [address] [place] [phone] 12/28/2024 Robb Duarte Colon cancer scree stephany [...] Name:Robb Duarte , 12/14/2025 09:20:00 AM, [address], [address], [place], [address], Progress Notes * PENNY BARBOZAOB: 0 (75 yo M)Acc No.[id number]:12/28/2024 COLON WITH MAC Patient: BERNICE ROBLEDO Provider: Solange Duarte MD :1950 A ge:74 Y S ex:Male Date:12/28/2024 Address:[address] [place], [place] [phone] Pcp:Dexter Patricia Subjective: * Chief Complaints: * [...] 0 12/28/2024 Generated for Rajiv peralta/Tristan/Darrenitting on: 07:24 AM EDT
--- OUTSIDE RECORDS SUMMARY | 2025-08-18 07:25 | XMS_ITS | Patient Health Record ---
Author Organization [facility] Address [address] [place] [address] Care Team Providers Care Computer Numerical Control Operator Name Role Phone Dexter Patricia Primary Care Provider Robb Hills Unavailable [phone] Allergies Allergen (clinical drug ingredient) Drug/Non Drug Allergy documented on EMR Reaction Allergy Type Onset Date Status atorvastatin Atorvastatin altered mood Drug Allergy Active Penicillin Unknown Drug Allergy Active adhesive tape (uncoded) Unknown Allergy Active Reason For Referral No Information Medications Medication SIG (Take, Route, Fr equency, Duration) Notes Start Date End Date Status Multivitamin Active Eliquis 5 MG TAKE 1 TABLET BY NATALIIA TH TWICE A DAY Oral; Duration: 90 Active Metoprolol Succinate ER Active Lovastatin Active Problems Problem Type SNOMED Code ICD Code Onset Dates Problem Status W/U Status Risk Notes Problem Colon cancer screening (608332643) Colon cancer screening (Z12.11) Active confirmed Problem Pre-procedure evaluation check (385162527) Encounter for other preprocedural examination (Z01.818) Active confirmed Problem Elevated liver enzymes level (157254318) Elevated liver function tests (R79.89) Active confirmed Problem Fatty liver (131887501) Fatty liver (K76.0) Active confirmed Problem Long-term current use of anticoagulant (620062681) Anticoagulant long-term use (Z79.01) Active confirmed Vital Signs Blood pressure diastolic 77 mm Hg 06/06/2025 Height 72.5 in 06/06/2025 Blood pressure systolic 111 mm Hg 06/06/2025 Weight 200 lbs 06/06/2025 BMI 26.75 kg/m2 06/06/2025 Encounters Encounter Location Date Provider Diagnosis [facility] Outpatient [address] [place] [phone] 12/28/2024 Robb Duarte Colon cancer screeni ng Z12.11 ; Diverticulosis of large intestine without perforation or abscess without bleeding K57.30 and Other hemorrhoids K64.8 [facility] [address] [place] [address] 08/30/2024 Robb Duarte Colon cancer screeni ng Z12.11 ; Anticoagulant long-term use Z79.01 and Encounter for other preprocedural examination Z01.818 [facility] [address] [place] [phone] 06/06/2025 Robb Duarte Fatty liver K76.0 an d Elevated liver function tests R79.89 Assessments Encounter Date Diagnosis (ICD Code) Assessment [...] shall also obtain a clearance from his telehealth nurse educator as well. I did advise him to [...] shall also obtain a clearance from his telehealth nurse educator as well. I did advise him to [...] to keep you advised of his progress. 06/06/2025 Elevated liver function tests (ICD-10 - R79.89) Overall, Yomi appears well. He does not have any signs of significant liver disease on his examination nor by his laboratories. He does not have any symptoms of liver disease either. His fatty liver on his ultrasound seems to be the most likely diagnosis of the elevated LFTs. We did review risk factors for that which would include some beer use, hyperlipidemia, and being overweight. Given his age and good clinical appearance I do not think a liver biopsy is required. However, I did advise him that it would be best for him to try to eliminate alcohol from his lifestyle, try to watch his diet, and to try to lose some more weight. Given his age I doubt this will be a problem for him in the long-term, but nonetheless I did advise him that would be best to try to monitor things and correct any potential lifestyle factors that could be affecting his liver adversely. He is on a chronic and longstanding statin for his cholesterol which could elevate LFTs, but I would not recommend stopping that as I suspect he is having more benefit from that in regard to his underlying coronary artery disease. The statin could also help the fatty liver by keeping the cholesterol levels down. I am going to check a liver profile today to see if his recent weight loss helped his LFTs. I shall also check a complete liver workup with the laboratories as well. I do not think he needs any further imaging at this time. I will plan to see him in about 6 months for a follow-up visit. Yomi was comfortable with this plan. Thank you again for allowing me to participate in Yomi's care. I shall continue to keep you advised of his progress. 06/06/2025 Fatty liver (ICD-10 - K76.0) Try to continue to watch diet, lose weight, and eliminate beers and all alcohol Overall, Yomi appears well. He does not have any signs of significant liver disease on his examination nor by his laboratories. He does not have any symptoms of liver disease either. His fatty liver on his ultrasound seems to be the most likely diagnosis of the elevated LFTs. We did review risk factors for that which would include some beer use, hyperlipidemia, and being overweight. Given his age and good clinical appearance I do not think a liver biopsy is required. However, I did advise him that it would be best for him to try to eliminate alcohol from his lifestyle, try to watch his diet, and to try to lose some more weight. Given his age I doubt this will be a problem for him in the long-term, but nonetheless I did advise him that would be best to try to monitor things and correct any potential lifestyle factors that could be affecting his liver adversely. He is on a chronic and longstanding statin for his cholesterol which could elevate LFTs, but I would not recommend stopping that as I suspect he is having more benefit from that in regard to his underlying coronary artery disease. The statin could also help the fatty liver by keeping the cholesterol levels down. I am going to check a liver profile today to see if his recent weight loss helped his LFTs. I shall also check a complete liver workup with the laboratories as well. I do not think he needs any further imaging at this time. I will plan to see him in about 6 months for a follow-up visit. Yomi was comfortable with this plan. Thank you [...] shall also obtain a clearance from his telehealth nurse educator as well. I did advise him to [...] advised of his progress. Plan Of Treatment Pending Test Test Name Order Date LIVER PROFILE 06/06/2025 IRON + IBC (FE) 06/06/2025 IRON PROFILE 06/06/2025 Ferritin 06/06/2025 Alpha 1 Anti-trypsin 06/06/2025 Liver Fibrosis Pnl 06/06/2025 [place] Reflex Titer and Pattern 06/06/2025 Mitochondrial Antibody 06/06/2025 Smooth Muscle Antibody 06/06/2025 Hepatitis B,C Profile 06/06/2025 Future Test Test Name Order Date COLONOSCOPY 04/11/2014 COLONOSCOPY 08/30/2024 Next Appt Details Provider Name:Robb Duarte , 12/14/2025 09:20:00 AM, [address] [place] [address], [address], [place], [address], Insurance Providers Payer Name Payer Address Payer Phone Subscriber Number Group Number Insured Name Patient Relationship to Insured Coverage Start Date Coverage End Date MEDICARE OF [place] [address] [place] [phone] [id number] YOMI BARBOZA Self - patient is the insured MED[employer] ATTN CLAIMS [address] [place] [address] [id number] YOMI BARBOZA Self - patient is the insured Medical (General) History Medical History History ICD Code Paroxysmal Atrial Fibrillation Denies [place],DM,CVA,Lung disease,renal dise ase Neg. screening colonoscopy with Dr. Kerline gibbons in 02/2005 Hyperlipidemia CAD with 1 stent placed in 10/2023- sees Dr. Amaro Negative colonoscopy in 05/2014 with me Negative colonoscopy in 12/2024 Surgical History Surgery Date(Month/Year) cardiac stent-Dr. amaro 10/2024 Umbilical hernia repair Hernia repair-bilateral inguinal
[2025-08-18 10:40] LABS: Hematocrit 46.3 % (42.0-52.0); Hemoglobin 15.2 g/dl (14.0-18.0); Mean Corpuscular HGB Conc 32.8 g/dl (31.0-36.0); Mean Corpuscular Hemoglobin 31.4 pg (27.0-33.0); Mean Corpuscular Volume 95.7 fL (80.0-98.0); NRBC Abs Auto 0.000 X10*3/uL (0.0-0.012); NRBC Pct Auto 0.0 /100WBC (0.0-0.2); Platelet Count 246 X10*3/uL (160-400); Red Blood Count 4.84 X10*6/uL (4.60-5.80); White Blood Count 5.7 X10*3/uL (4.8-10.8)
[2025-08-18 10:57] LABS: Alanine Aminotransferase 27 U/L (0-40); Albumin Level 4.3 g/dL (3.5-5.0); Alkaline Phosphatase 70 U/L (39-117); Anion Gap 10 (12-20); Aspartate Amino Transferase 34 U/L (5-37); Blood Urea Nitrogen 15 mg/dL (9-16); Calcium 9.1 mg/dL (8.4-10.2); Carbon Dioxide 28 mmol/L (22-29); Chloride 108 mmol/L (96-108); Cholesterol 148 mg/dL (<200); Estimated Glomerular Filt Rate > 60; HDL Cholesterol 51 mg/dL (>40); Potassium 4.5 mmol/L (3.3-5.1); Sodium 141 mmol/L (135-145); Total Protein 6.9 g/dL (6.5-8.0); Triglycerides 73 mg/dL (<150)
== END 2025-08-18 07:22 | disposition home or self-care (01) ==
LOC: HO.HMGCLDS 07:21
PROVIDERS: PCP Physician Assistant; Visit Provider Physician Assistant
DX: Z12.5 Encounter for screening for malignant neoplasm of prostate (principal); E78.2 Mixed hyperlipidemia
CPT/HCPCS: 36415; 80053; 80061; 84153; 85027

== ENCOUNTER 2025-08-23 08:48 | Outpatient (AMB) | payer MEDICARE, SELFPAY ==
--- OUTSIDE RECORDS SUMMARY | 2024-12-28 03:20 | XMS_ITS ---
Author Organization [facility] Address [address] [place] [address] Care Team Providers Care Women'S Studies Professor Name Role Phone Dexter Patricia Primary Care Provider UnavailRobb Sahu [phone] REASON FOR VISIT screening Encounters Encounter Location Date Provider [place] [facility] [place] [address] [place] [phone] 12/28/2024 Robb Duarte Colon cancer scree stephany Z12.11 ; Diverticulosis of large intestine without perforation or abscess without bleeding K57.30 and Other hemorrhoids K64.8 Assessments Encounter Date Diagnosis (ICD Code) Assessment Notes Treatment Notes Treatment Clinical Notes Section Notes 12/28/2024 Colon cancer screening (ICD-10 - Z12.11) 12/28/2024 Diverticulosis of large intestine without perforation or abscess without bleeding (ICD-10 - K57.30) 12/28/2024 Other hemorrhoids (ICD-10 - K64.8) Plan Of Treatment Next Appt Details Provider Name:Robb Duarte , 12/14/2025 09:20:00 AM, [address], [address], [place], [address], Progress Notes * PENNY BARBOZAOB: 0 (75 yo M)Acc No.[id number]:12/28/2024 COLON WITH MAC Patient: BERNICE ROBLEDO Provider: Solange Duarte MD :1950 A ge:74 Y S ex:Male Date:12/28/2024 Address:[address] [place], [place] [phone] Pcp:Dexter Patricia Subjective: * Chief Complaints: * 1 . Screening. * Medical History: Objective: * Vitals: Assessment: * Assessment: 1. C olon cancer screening - Z12.11 (Primary) 2 . D iverticulosis of large intestine without perforation or abscess without bleeding - K57.30 3 . O ther hemorrhoids - K64.8 Plan: * Treatment: * Procedure Codes: G 0121 COLOREC CNCR SCR;COLNSCPY NO HI RSK * * The named appointment provid er may or may not be the originator of this progress note, and it is not deemed complete until electronically signed by the appointment provider. Sign off status: Pending * Provider: Solange Duarte MD Date: 0 12/28/2024 Generated for Rajiv peralta/Tristan/Darrenitting on: 10/23/2024 09:17 AM EST
[2025-08-23 08:51] VITALS: BP 138/70; PULSE 49; TEMP 36.1; O2SAT 97; BMI 27.0
--- NOTE | 2025-08-23 08:51 | A.OFFPC_ITS ---
Vital Signs 08/23/25 08:51 Height 6 ft Weight 199 lb BMI 27.0 BP 138/70 Blood Pressure Location Lt brachial Position Sitting Pulse 49 L Pulse Source Pulse Oximeter Temp 97.0 F Temp Source Temporal Artery Scan Pulse Oximetry (%) 97 Oxygen Delivery Method Room Air Intake Visit Reasons: f/u hLD/ HTN / AFIB Allergies adhesive tape (ADHESIVE TAPE) Allergy (Intermediate, Verified 08/23/25 09:03) HIVES Penicillins (PENICILLINS) Allergy (Unknown, Verified 08/23/25 09:03) UNKNOWN REACTION-CHILDHOOD ALLERGY atorvastatin Adverse Reaction (Intermediate, Verified 08/23/25 09:03) Altered Mood heart monitor electrodes Allergy (Intermediate, Uncoded 08/23/25 09:03) Hives (if on for extended time frame) Medication List - Last Reconciled 08/23/25 by Dexter Patricia PA-C apixaban (Eliquis) 5 mg PO BID 90 days lovastatin 40 mg PO DAILY metoprolol succinate ER 50 mg PO DAILY Tobacco use date assessed: 08/23/25 Fall risk assessment: No Falls in past year Last assessed Fall Risk: 08/23/25 Dental Screening Dental Screen Date: 08/23/25 Did you have a dental visit in the last 12 months?: Yes Did you have a dental problem in the last 6 months where you did not have access to dental care?: No Was dental information given to patient?: Patient has dentist HPI f/u hLD/ HTN / AFIB HPI Details Patient is a 75-year-old male here today for a follow-up visit. .? Patient has a past medical history si gnificant for polyarthritis, paroxysmal AFib, hypertension. .. Paroxysmal AFIB: Is followed by [facility]. No overt bleeding on eliquis.? He continues to be in p-AFib any symptoms.? Recent ECHO unremarkable. Coronary artery disease: Due to reports exertional throat tightness patient sent for nuclear stress test which was normal. He has underwent a cardiac catheterization in that showed 80% stenosis in the LAD, drug-eluting stent was placed. Most recent lipid panel showing LDL at 83. He has not been able to tolerate atorvastatin thus continues on lovastatin 40 mg per .. Elevated liver enzymes: Have normalized , Noted slightly elevated liver enzymes likely secondary to is fatty liver disease. He did have an ultrasound that did show signs consistent with fatty liver versus chronic hepatitis. Has followed up with Gastroenterology specialist whom will be sending for liver fibrosis panel. Laboratory Tests 02/15/25 08/18/25 07:50 07:30 RBC 4.84 Hgb 15.2 Cholesterol 148 LDL Cholesterol, C alc 79 83 PSA Screen 2.27 2.49 [facility] Medical History History of cardioversion Polyarthritis Elevated cholesterol HTN (hypertension) Anticoagulated Eustachian tube dysfunction Ascending aorta dilatation Atherosclerotic cardiovascular disease Sinus bradycardia PAF (paroxysmal atrial fibrillation) Surgical History History of left inguinal hernia (11/27/22) Hx of cardiac catheterization History of colonoscopy (02/24/09) History of hemorrhoidectomy (04/05/19) History of right inguinal hernia repair (03/05/12) History of left inguinal hernia repair (09/04/11) History of umbilical hernia repair Family History Father CHF (congestive heart failure) Mother Hypertension Osteoarthritis Social History Household Members: Spouse Housing: House Are you a primary child care director to a significant other at home: No Do you presently have visiting nurse or other home services: No 75 years or older and lives alone: No Alcohol intake: current Alcohol intake frequency: a few times a week Alcohol ty pe: beer Patient Tobacco Use Status: Never used Tobacco e-Cigarette/Vaping Use: Never Used Second Hand Smoke Exposure: Yes service: Yes Current occupational status: retired Cognitive needs: Yes Hearing needs: No Vision needs: Yes (Reading glasses) Questionnaire PHQ-9 Over the last 2 weeks, how often have you been bothered by any of the following problems? 1. Little interest or pleasure in doing things: not at all 2. Feeling down, depressed, or hopeless: not at all 3. Trouble falling or staying asleep, or sleeping too much: not at all 4. Feeling tired or having little energy: not at all 5. Poor appetite or overeating: not at all 6. Feeling bad about yourself - or that you are a failure or have let yourself or your family down: not at all 7. Trouble concentrating on things, such as reading the newspaper or watching television: not at all 8. Moving or speaking so slowly that other people could have noticed. Or the opposite - being so fidgety or restless that you have been moving around a lot more than usual: not at all 9. Thoughts that you would be better off or of hurting yourself in some way: not at all Total score: 0 Depression Screening Interpretation: Negative Depression Screening Done: Yes 72447 - PHQ-9 Billing: Patient declined-do not bill Source: Developed by Drs. Robb Mccurdy, Quyen Jarquin, Alan Freeman and colleagues, with an educational jennifer from [employer] Thrive Questionnaire Date Thrive assessed: 02/16/25 I am a: Patient What is your living situation today?: I have a steady place to live Within the past 12 months, did the food you bought not last and you didn't have the money to get more?: Never true Within the past 12 months, did you worry whether your food would run out before you got money to buy more?: Never true Do you have trouble paying for medicines?: No Do you have trouble getting transportation to medical appointments?: No Do you have trouble paying your heating and electricity bill?: No Do you have trouble taking care of your child, family member or friend?: No Do you have trouble with day-to-day activities such as bathing, preparing meals, shopping, managing finances, etc.?: No Are you currently unemployed and looking for a job?: No Are you interested in more education?: No Please select the resources that you would like help with: None Currently or been in a relationship where the following occur: No concerns reported THRIVE Score: 0 AUDIT C Alcohol Use Questionnaire (AUDIT-C) 1. How often do you have a drink containing alcohol?: 2-3 times a week 2. How many drinks containing alcohol do you have on a typical day when you are drinking?: 1 or 2 3. How often do you have six or more drinks on one occasion?: Never Total Score: 3 MELITON-7 AMB Questionnaire MELITON-7 Date MELITON - 7 assessed: 02/20/25 Feeling nervous, anxious, or on edge: 0 = Not at all Not being able to stop or control worryin = Not at all Worrying too much about different things: 0 = Not at all Trouble relaxin = Not at all Being so restless that it is hard to sit still: 0 = Not at all Becoming easily annoyed or irritable: 0 = Not at all Feeling afraid as if something awful might happen: 0 = Not at all Total MELITON-7 score (0-4 normal; 5-9 mild; 10-14 moderate; 15-21 severe): 0 Source: Developed by Drs. Robb Mccurdy, Quyen Jarquin, Alan Freeman and colleagues, with an educational jennifer from [employer] Review of Systems Const Denies headache(s) Eyes Denies loss of vision ENT Denies vertigo, Denies dizziness, Denies headache(s) and Denies sore throat Card Denies chest pain, Denies leg edema and Denies lightheadedness Resp Denies cough, Denies hemoptysis and Denies wheezing GI Denies abdominal pain, Denies melena, Denies constipation, Denies diarrhea and Denies vomiting Denies dysuria, Denies urinary frequency and Denies urinary urgency Musc Denies arthralgias, Denies joint swelling, Denies numbness and Denies tingling Neuro Denies Abnormal speech present, Denies behavioral changes, Denies vertigo, Denies dizziness, Denies headache(s), Denies loss of vision, Denies memory loss, Denies numbness and Denies tingling Psych Denies anxiety, Denies behavioral changes, Denies depression, Denies memory loss and Denies panic attacks Cortes/Lymph Denies easy bleeding and Denies easy bruising Aller/Immun Denies wheezing Physical exam (Primary Care) Vital Signs: Last Vital Signs Temp 97.0 F 08/23/25 08:51 Pulse 49 L 08/23/25 08:51 BP 138/70 08/23/25 08:51 Pulse Ox 97 08/23/25 08:51 Oxygen Delivery Method Room Air 08/23/25 08:51 BMI result Body Mass Index 27.0 Tobacco/Smoking Status: Tobacco use Status Tobacco use date assessed 08/23/25 08/23/25 08:55 Patient Tobacco Use Status Never used Tobacco 08/23/25 08:55 e-Cigarette/Vaping Use Never Used 08/23/25 08:55 PHQ-9: PHQ-9 Score PHQ-9: Total score 0 08/23/25 08:55 Depression Screening Interpretation: Negative Thrive Assessment: Date of Thrive Assessment Date Thrive assessed 02/16/25 08/23/25 08:55 Currently or been in a relationship where the following occur: No concerns reported Const General: healthy appearing, no acute distress, alert and awake Nutritional Appearance: well nourished Orientation/consciousness: oriented to person, oriented to place and oriented to time HENMT Ears: TM's normal bilaterally General nose exam: Normal nasal mucous membranes and turbinates present Eyes Conjunctivae: conjunctivae normal Sclerae: sclerae normal Pupils: Equal, round and reactive pupils present Neck Neck: Yes no lymphadenopathy and Yes no JVD Thyroid: Thyroid normal Carotids: no bruits Resp Effort & Inspection: normal respiratory effort and not tachypneic Auscultation: no crackles, no rales, no rhonchi and no wheezes Cardio Rate: regular rate Rhythm: regular rhythm Heart sounds: no murmurs and normal S1 and S2 GI Palpation (GI): Soft to palpation, nontender, no hepatomegaly and no splenomegaly Auscultation: normal bowel sounds Skin General skin exam: no rashes or lesions noted and dry skin Neuro General: oriented to person, oriented to place and oriented to time Cranial nerves: Yes Equal, round and reactive pupils present Speech: No Abnormal speech present Gait exam (Neuro): Normal gait present Motor exam (neuro): no tremor noted Extrem Right upper extremity: full ROM Left upper extremity: full ROM Right lower extremity: full ROM; no edema Left lower extremity: full ROM; no edema Psych Mental Status: mental status grossly normal Speech and movement: Normal speech and movement present Affect: normal affect Attitude: cooperative Thought process: Normal thought process present Coding Level of Care Code Est Pt Level 4 (93760) Diagnoses Primary hypertension I10 Hypertension type: primary hypertension Stented coronary artery Z95.5 Mixed hyperlipidemia E78.2 Hyperlipidemia type: mixed hyperlipidemia PAF (paroxysmal atrial fibrillation) I48.0 Elevated liver enzymes R74.8 Assessment & Plan Assessment & Plan (1) HTN (hypertension): Code(s): I10 - Essential (primary) hypertension Category: Medical Qualifiers: Hypertension type: primary hypertension Qualified Code(s): I10 - Essential (primary) hypertension Plan: Patient's blood pressure acceptable today in office. Will continue current dose of metoprolol. Goal blood pressures to remain below 140/90 (2) Stented coronary artery: Code(s): Z95.5 - Presence of coronary angioplasty implant and graft Category: Surgical Plan: Patient continues to follow cardiology. Continues on moderate dose that and and antiplatelet therapy with good effect. No overt signs of bleeding. Most recent LDL at 83. Unfortunately has not been able to tolerate higher potency statin atorvastatin, has return back to using lovastatin 40 mg Goal LDL to be optimally below 70. (3) HLD (hyperlipidemia): Code(s): E78.5 - Hyperlipidemia, unspecified Category: Medical Qualifiers: Hyperlipidemia type: mixed hyperlipidemia Qualified Code(s): E78.2 - Mixed hyperlipidemia Plan: Patient's most recent lipid panel showing fairly good control of his total cholesterol and LDL. (4) PAF (paroxysmal atrial fibrillation): Code(s): I48.0 - Paroxysmal atrial fibrillation Category: Medical Plan: Followed by [facility]. Continues to be rate controlled on metoprolol 50 mg extended release. Patient is anticoagulated with Eliquis without any overt signs of bleeding. (5) Elevated liver enzymes: Code(s): R74.8 - Abnormal levels of other serum enzymes Category: Medical Plan: Continues to have slightly elevated liver enzymes. Recent ultrasound of liver showing signs consistent with fatty liver versus chronic hepatitis. Has followed up with Gastroenterology and will be sent for liver fibrosis panel Orders: Orders Lipid Panel Today Z95.5 - Presence of coronary angioplasty implant and graft Microalbumin, Random (w Creat) Today I10 - Essential (primary) hypertension Complete Blood Count no Diff Today I10 - Essential (primary) hypertension Comprehensive Warner. Panel Fast Today I10 - Essential (primary) hypertension Prostate Specific Antigen Scr Today I10 - Essential (primary) hypertension, Z12.5 - Encounter for screening for malignant neoplasm of prostate Patient Instructions: Goal: Blood pressure to remain below 130/80, LDL to be optimally below 70 Barriers: Adherence to physical activity and healthy eating habits
--- OUTSIDE RECORDS SUMMARY | 2025-08-23 09:18 | XMS_ITS | Patient Health Record ---
Author Organization [facility] Address [address] [place] [address] Care Team Providers Care Cable Weaver Name Role Phone Dexter Patricia Primary Care Provider [place]b [place] Unavailable [phone] Allergies Allergen (clinical drug ingredient) Drug/Non Drug [...] Status Risk Notes Problem Colon cancer screening (897380187) Colon cancer screening (Z12.11) Active confirmed Problem Pre-procedure evaluation check (950313625) Encounter for other preprocedural examination (Z01.818) Active confirmed Problem Elevated liver enzymes level (522272113) Elevated liver function tests (R79.89) Active confirmed Problem Fatty liver (242668920) Fatty liver (K76.0) Active confirmed Problem Long-term current use of anticoagulant (168707721) Anticoagulant long-term use (Z79.01) Active confirmed Vital Signs Blood pressure diastolic 77 mm Hg 06/06/2025 Height 72.5 in 06/06/2025 Blood pressure systolic 111 mm Hg 06/06/2025 Weight 200 lbs 06/06/2025 BMI 26.75 kg/m2 06/06/2025 Encounters Encounter Location Date Provider Diagnosis [facility] [address] [place] [id number] 12/28/2024 Robb Duarte Colon cancer screeni ng Z12.11 ; Diverticulosis of large intestine without perforation or abscess without bleeding K57.30 and Other hemorrhoids K64.8 [facility] [address] [place] [phone] 08/30/2024 Robb Duarte Colon cancer screeni ng Z12.11 ; Anticoagulant long-term use Z79.01 and Encounter for other preprocedural examination Z01.818 [facility] [address] [place] [phone] 06/06/2025 Robb Duarte Fatty liver K76.0 an [...] shall also obtain a clearance from his child care provider as well. I did advise him to [...] shall also obtain a clearance from his child care provider as well. I did advise him to [...] shall also obtain a clearance from his child care provider as well. I did advise him to [...] Provider Name:Robb Duarte , 12/14/2025 09:20:00 AM, [address] [place] [address], [address], [place], [address], Insurance Providers Payer Name Payer Address Payer Phone Subscriber Number Group Number Insured Name Patient Relationship to Insured Coverage Start Date Coverage End Date MEDICARE OF [place] [address] [place] [address] [phone] [id number] YOMI BARBOZA Self - patient is the insured [employer] ATTN CLAIMS [address] [place] [address] [id number] YOMI BARBOZA Self - patient is the insured Medical (General) History Medical History History ICD Code Paroxysmal Atrial Fibrillation Denies VA,DM,CVA,Lung disease,renal dise ase Neg. screening colonoscopy with Dr. Kerline gibbons in 02/2005 Hyperlipidemia CAD with 1 stent placed in 10/2023- sees Dr. Amaro Negative colonoscopy in 05/2014 with me Negative colonoscopy in 12/2024 Surgical History Surgery Date(Month/Year) cardiac stent-Dr. amaro 10/2024 Umbilical hernia repair Hernia repair-bilateral inguinal
== END 2025-08-23 09:16 | disposition home or self-care (01) ==
LOC: HO.HMCH 08:49
PROVIDERS: PCP Physician Assistant; Visit Provider Physician Assistant
DX: I10 Essential (primary) hypertension (principal); Z95.5 Presence of coronary angioplasty implant and graft; E78.2 Mixed hyperlipidemia; I48.0 Paroxysmal atrial fibrillation; R74.8 Abnormal levels of other serum enzymes

== ENCOUNTER → 2025-08-23 08:48 | Outpatient (BNVA) | payer MEDICARE, SELFPAY | PROVIDERS: PCP Physician Assistant; Visit Provider Physician Assistant | DX: I10 Essential (primary) hypertension (principal); E78.2 Mixed hyperlipidemia; I48.0 Paroxysmal atrial fibrillation; R74.8 Abnormal levels of other serum enzymes; Z95.5 Presence of coronary angioplasty implant and graft | CPT/HCPCS: 99212 ==